=== PATIENT | male | born 1930 | race Caucasian/White ===

== ENCOUNTER 2017-01-18 12:01 | Outpatient (CLI) | payer MEDICARE, BC ==
--- OUTSIDE RECORDS SUMMARY | 2017-01-18 12:04 | XMS | Clinical Summary ---
:1930 Author Organization [facility] Address [address] [place] [address] Phone Care Team Providers Name Role Phone , Primary Care Provider Unavailable Allergies Not on File Current Medications Not on file Active Problems Not on file Social History Tobacco Use Types Packs/Day Years Used Date Never Assessed Sex Assigned at Date Recorded Not on file Last Filed Vital Signs Not on file Plan of Treatment Not on file Results Not on filefrom Last 3 Months
--- NOTE | 2017-01-18 14:43 | RAD ---
RADIOGRAPH CHEST 2 VIEWS: Date: 01-18-17 Time: 12:15 p.m. HISTORY: 86-year-old male with dyspnea. COMPARISON: 04-30-13, 01-07-16, and 08-27-16 FINDINGS: There is hyperinflation consistent with COPD. There is borderline or mild cardiomegaly, without pulm onary edema. On the frontal view, the focal approximately 2.5 x 2.5 cm mass-like opacity remains at the right lower lung zone, unchanged since 2013, and therefore, not consistent with a primary malign karyn. Again demonstrated is the blunting and thickening of the lateral and posterior costophrenic an gle bilaterally, with thickening of the pleural stripes extending to the mid-chest bilaterally, rohini cially posteriorly. Chronic interstitial densities are again noted in the lower lung zones, especial ly on the right. No acute consolidation. No new mediastinal widening or pneumothorax. No major inter barney change overall. IMPRESSION: 1. pseudomass in the right lower lung zone has not significantly changed since 2013. 2. Bilateral small pleural effusions with at least partial loculations, unchanged since 2013. 3. Emphysema. 4. Chronic pulmonary densities at the lung bases bilaterally. 5. No significant interval change overall since the prior studies. LEANDER POS: [facility]
== END 2017-01-18 12:02 | disposition home or self-care (01) ==
LOC: RAD 12:01
PROVIDERS: ATTEND Internal Medicine Critical Care Medicine
DX: R06.00 Dyspnea, unspecified (principal); J43.9 Emphysema, unspecified; R22.2 Localized swelling, mass and lump, trunk; J90 Pleural effusion, not elsewhere classified; R91.8 Other nonspecific abnormal finding of lung field
CPT/HCPCS: 71020

== ENCOUNTER 2017-06-13 18:16 | Inpatient (IN) | payer MEDICARE, BC ==
[2017-06-13 18:53] LABS: #Lymphocytes 0.6 thou/uL (1.20-3.40); #Monocytes 0.7 thou/uL (0.11-0.59); #Neutrophils 11.4 thou/uL (1.40-6.50); %Basophils 0.1 % (0.0-1.0); %Eosinophils 0.1 % (0.0-10.0); %Lymphocytes 4.5 % (21.0-51.0); %Monocytes 5.6 % (0.0-10.0); %Neutrophils 89.7 % (42.0-75.0); Hemoglobin 13.9 g/dL (14.0-18.0); Mean Corpuscular HGB CONC 33.4 g/dL (32.0-36.0); Mean Corpuscular Hemoglobin 33.3 pg (27.0-31.0); Mean Corpuscular Volume 99.8 fl (80.0-94.0); Mean Platelet Volume 7.5 fL (7.4-10.4); Platelet Count 153 thou/uL (130-400); Red Blood Cell (RBC) Count 4.16 mill/uL (4.70-6.10); White Blood Cell (WBC) Count 12.7 thou/uL (4.8-10.8)
[2017-06-13 19:09] LABS: CK (CPK) 60 U/L (30-200)
[2017-06-13 19:13] LABS: CKMB 1.4 ng/mL (0-6.6); Troponin I 0.099 ng/mL (< 0.028)
--- NOTE | 2017-06-13 19:21 | CT ---
HEAD CT WITHOUT CONTRAST 06/13/17 COMPARISON: 08/27/16 HISTORY: Altered mental status. TECHNIQUE: Serial axial CT imaging at 5 mm intervals from vertex through skull base without contrast. FINDINGS: Detailed assessment is somewhat limited secondary to head motion artifact. The imaged paranasal sinus es/mastoid air cells are well aerated. No displaced calvarial fracture is seen. No intracranial hemorrhage, midline shift, or mass effect noted. There is periventricular and deep wh ite matter hypodensity suggesting small vessel disease. IMPRESSION: Motion limited exam demonstrating evidence of small vessel disease. No evidence for intracranial hemo rrhage. POS: [facility]
[2017-06-13 19:51] LABS: Albumin 4.3 g/dL (3.4-4.8)
[2017-06-13 19:52] LABS: Chloride 94 mmol/L (98-107); Potassium 4.1 mmol/L (3.5-5.1); Sodium 131 mmol/L (136-145)
[2017-06-13 19:53] LABS: Calcium 9.3 mg/dL (7.8-10.44); Glucose 122 mg/dL (83-110)
[2017-06-13 19:54] LABS: Globulin 3.4 g/dL (2.4-3.5); Protein, Total 7.7 g/dL (5.8-8.1)
[2017-06-13 19:55] LABS: Anion Gap 18 mmol/L (10-20); Bilirubin, Total 7.6 mg/dL (0.2-1.2); Carbon Dioxide 23 mmol/L (23-31)
[2017-06-13 19:56] LABS: Alkaline Phosphatase 89 U/L (40-150)
[2017-06-13 19:57] LABS: Calc. Creatinine Clearance 0 mL/min (70-130); Estimated GFR-MDRD 52
[2017-06-13 19:58] LABS: BUN (Urea Nitrogen) 16 mg/dL (8.4-25.7)
[2017-06-13 19:59] LABS: ALT (SGPT) 8 U/L (8-55); AST (SGOT) 19 U/L (5-34)
--- NOTE | 2017-06-13 20:07 | RAD ---
PORTABLE UPRIGHT FRONTAL CHEST RADIOGRAPH 06/13/17 COMPARISON: 01/18/17 and 01/06/15. HISTORY: Fever and altered mental status. FINDINGS: Numerous prior examinations have demonstrated a focal area of opacity in the right lung base. This op acity is more conspicuous than on the prior examination and extends superior and medially into the ri ght perihilar region. There is no pneumothorax. There is lateral pleural thickening involving both le ng bases, left greater than right, stable. There is stable prominence of the cardiac silhouette. Ther e is atherosclerotic calcification of the aortic arch. There is no pneumothorax seen. IMPRESSION: Chronic persistent focal opacity noted in the right lung base with superimposed new right perihilar a nd infrahilar density. The findings suggest infectious pneumonitis or aspiration within the right brian g base. Asymmetric pulmonary edema is a possibility. Recommend short term followup imaging of the rai st following treatment. POS: [facility]
[2017-06-13] MEDS ORDERED: Acetaminophen 500 MG TAB ONE (20:19)
[2017-06-13] MEDS ORDERED: Azithromycin 500 MG VIAL ONE (20:19)
[2017-06-13 20:28] LABS: Bilirubin Small (Negative); Blood, Urine Moderate (Negative); Clarity CLOUDY (Clear); Glucose, Urine (Dipstick) Negative (Negative); Leukocyte Negative (Negative); Nitrite Negative (Negative); Protein, Urine (Dipstick) 100 mg/dL (Neg-Trace); Specific Gravity, Urine 1.021 (1.002-1.036); Urobilinogen 0.2 mg/dL (0.2-1.0); pH, Urine 5.5 (5.0-9.0)
[2017-06-13 20:32] LABS: Bacteria/HPF None Seen HPF (None Seen); Hyaline Casts/LPF 7-10 HYALINE CAST LPF (0-3 Hyaline); Pathc Cast-AUWi Flag 0.81 (0-2.49); Squamous Epithelial 0-3 HPF (0-3); WBC/HPF 0-3 HPF (0-3)
[2017-06-13 22:45] LABS: Lactic Acid 1.3 mmol/L (0.5-2.2)
[2017-06-14] MEDS ORDERED: HYDROcodone/Acetaminophen 5/325 mg Tablet PO PRN ×3 (00:17→01:17)
[2017-06-14] MEDS ORDERED: Ondansetron ODT 4 MG TAB SL PRN (00:17)
[2017-06-14] MEDS ORDERED: Ondansetron PF 4 MG/2 ML Vial IVP PRN (00:17)
[2017-06-14] MEDS ORDERED: Acetaminophen 325 MG TAB PO PRN ×2 (00:17→01:17)
[2017-06-14 00:21] VITALS: BMI 20.7
[2017-06-14 00:59] LABS: Troponin I 0.103 ng/mL (< 0.028)
[2017-06-14] MEDS ORDERED: Ondansetron ODT 4 MG TAB PO PRN (01:17)
[2017-06-14] MEDS ORDERED: Atorvastatin Calcium 20 MG TAB PO SCH ×2 (01:17→21:00)
--- NOTE | 2017-06-14 06:43 | HP ---
DATE OF ADMISSION: 06/13/2017 TIME OF SERVICE: 2145 hours PRIMARY CARE PHYSICIAN: Dr. Edilberto Douglas. CHIEF COMPLAINT: Altered mental status. HISTORY OF PRESENT ILLNESS: Mr. Koenig is an 86-year-old white gentleman with a history of GERD; KHALIDA DH; coronary arteries status post MO in the past; CHF, unknown type; atrial fibrillation, status post ablation; UTIs; hypertension; and skin cancer. The patient woke up 06/13/2017 according to his "in a fog" and was not really talking and seemed to really not respond much. He has never had any situation like this before. He has had no recent fevers or chills. No nausea and vomiting. No diarrhea or constipation, no coug h, no sputum production. No complaints of chest pain or shortness of breath. He says he just cannot really talk. He substitutes the wrong words or just cannot come up with the w ords at all. He has been able to walk around the house without any difficulty. He has not had any leaning or stra nge gait. He has been able to move all 4 of his extremities and they all feel normal to him. He denies any other current complaints. He came to the emergency department for evaluation. He was found to have a white count of 12.7, labs were fairly normal, he did have a chest x-ray that showed a chronic right basilar opacity, but a new right perihilar and infrahilar opacity. CT scan of the brain was unremarkable. We are subsequently called for admission for pneumonia and sepsis. PAST MEDICAL HISTORY: 1. GERD. 2. SIADH. 3. Coronary artery disease, status post MO. 4. CHF, unknown type. 5. Hypertension. 6. Skin cancer, stage II. 7. UTIs. 8. Atrial fibrillation, status post ablation. 9. Hypothyroidism. 10. BPH. PAST SURGICAL HISTORY: 1. PTCA with PCI and stent placement. 2. Atrial fibrillation ablation. Denies any pacemaker or AICD placement. 3. Left lung decortication remotely. 4. Tonsillectomy. HOME MEDICATIONS: 1. Coreg 12.5 mg p.o. b.i.d. 2. Lipitor 10 mg p.o. at bedtime. 3. KCl 8 mEq daily. 4. Prilosec 20 mg daily. 5. Levothyroxine 125 mcg daily. 6. Flomax 0.4 mg p.o. at bedtime. 7. Proscar 5 mg p.o. daily. 8. Glucosamine daily. 9. Symbicort 160/4.5 two puffs b.i.d. 10. Albuterol MDI as needed. 11. Nasonex 12. Aspirin 81 mg daily. 13. Loratadine 10 mg p.o. daily. ALLERGIES: AZITHROMYCIN, PENICILLIN, SULFA. FAMILY HISTORY: Negative for clotting or bleeding disorder. No immune dysfunction, no premature cor onary artery disease, and no massive strokes. SOCIAL HISTORY: Negative for habits x3. He is . His accompanies him. REVIEW OF SYSTEMS: A 10-point review of systems was performed, negative for all systems except as pe r HPI. PHYSICAL EXAMINATION: VITAL SIGNS: Temperature 101.3 on arrival, now down to 99.2; blood pressure 139/90, pulse is 97, res piratory rate 22, satting at 99% on 2 liters. GENERAL: He is awake. He is alert. He is a pleasant, well-developed, well-nourished, elderly white male, appears to be in no acute distress. HEENT: Normocephalic, atraumatic. His pupils are equal, round, react to light bilaterally, mucous m embranes are moist. No visible lesions. No thrush. No uvular deviation. NECK: Supple. He has no lymphadenopathy, no JVD, no thyromegaly. There are normal carotid upstroke s. I do not appreciate bruits. LUNGS: Clear to auscultation bilaterally without wheezes, rales, or rhonchi. He has some faint righ t inferior posterior crackles present, but there is no E to A changes and no dullness. CARDIOVASCULAR: He is slightly tachycardic and irregular. He has normal S1 and S2. I do not apprec iate murmurs. ABDOMEN: Soft, nontender, nondistended. He has no hepatosplenomegaly. No rebound, rigidity, or gua rding. He has normoactive bowel sounds present in all 4 quadrants. EXTREMITIES: With no cyanosis, no clubbing, no edema. SKIN: Warm, moist, and well perfused. He has no rashes or lesions. MUSCULOSKELETAL EXAM: Normal to inspection. He has no inflamed joints and no palpable effusions. NEUROLOGIC: Cranial nerves II-XII grossly intact. He has a Broca's aphasia. He moves all 4 of his extremities symmetrically with 5/5 strength. His sensation is intact. He has no focal motor deficit s otherwise. LABORATORY EVALUATION: Sodium 131, potassium 4.1, chloride 94, bicarbonate 23, BUN 16, creatinine 1. 32, calcium 9.3, and glucose 122. Liver functions are normal. Total bilirubin is elevated at 7.6. Looking back, he is always in the 3 -4 range. CBC showed a white count of 12.7 with a 90% granulocytosis, 5% lymphocytes, hemoglobin is 13.9, hemat ocrit of 41.5, platelet count 153,000. Chest x-ray as above. CT scan of the brain showed no acute i ntracranial abnormalities. ASSESSMENT AND PLAN: 1. Broca's aphasia, certainly concerning for a new stroke. We will get MRI/MRA of the head. We martin l place him on aspirin 325 mg daily, get a fasting lipid profile in the morning, and increase his Lip itor to 20 mg p.o. at bedtime. We will ask Neurology to evaluate. I have requested a PT, OT, and ST consult. He seems to be able to swallow fine. We will do a bedside swallow and not make him n.p.o. at this point. 2. Possible community-acquired pneumonia. He has a new right perihilar and infrahilar patchy opacit y. We will place him on levofloxacin tonight and watch. There are no signs of aspiration at this po int. 3. Gastroesophageal reflux disease, on Prilosec. 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 5. Coronary artery disease, on Coreg and Lipitor. 6. Hypothyroidism, on levothyroxine. 7. Hypertension. He is on Coreg and appears to be well controlled. We will continue that. 8. Atrial fibrillation, status post ablation. The patient is not on any antiarrhythmics. The patient was placed inpatient due to pneumonia and he does meet sepsis criteria. We will get neur ologist's input.
[2017-06-14] MEDS ORDERED: Vancomycin HCl 1 GM in Premix Bag 1 BAG IVPB SCH (08:00)
--- NOTE | 2017-06-14 08:12 | ULT ---
BILATERAL CAROTID DUPLEX ULTRASOUND: HISTORY: Aphasia. TECHNIQUE: Mcnulty scale ultrasound with color flow and spectral Doppler imaging of the deep venous systems of the extracranial carotid artery systems was performed bilaterally. FINDINGS: Plaque formation is noted on either side. The peak systolic velocity in the right ICA measures 53 cm/s with an end-diastolic velocity of 20 cm/ s and a systolic ratio of 0.89. The peak systolic velocity in the left ICA measures 61 cm/s with an end-diastolic velocity of 27 cm/s and a systolic ratio of 0.91. Flow in both vertebral arteries remains antegrade. IMPRESSION: No evidence of hemodynamically significant stenosis. POS: [facility]
[2017-06-14] MEDS: Famotidine 20 MG TAB PO SCH (08:45)
[2017-06-14] MEDS: Carvedilol 25 MG TAB PO SCH ×2 (08:45→20:29)
[2017-06-14] MEDS: Aspirin 325 mg Enteric Coated Tablet PO SCH (08:45)
[2017-06-14] MEDS: Enoxaparin Sodium 40 MG/0.4 ML SYRINGE SC SCH (08:46)
[2017-06-14 09:24] LABS: Troponin I 0.088 ng/mL (< 0.028)
[2017-06-14 12:42] LABS: Hemoglobin 12.4 g/dL (14.0-18.0); Mean Corpuscular HGB CONC 32.9 g/dL (32.0-36.0); Mean Corpuscular Hemoglobin 33.2 pg (27.0-31.0); Mean Platelet Volume 7.2 fL (7.4-10.4); Platelet Count 142 thou/uL (130-400); Red Blood Cell (RBC) Count 3.74 mill/uL (4.70-6.10); White Blood Cell (WBC) Count 9.4 thou/uL (4.8-10.8)
[2017-06-14 12:56] LABS: Band 7 % (5-11); Lymphocytes 11 % (21-51); MDiff Complete? YES; Monocytes 6 % (0-10); Neutrophil 76 % (42-75); RBC Morphology Normal
[2017-06-14 13:07] LABS: Anion Gap 10 mmol/L (10-20); BUN (Urea Nitrogen) 20 mg/dL (8.4-25.7); Calc. Creatinine Clearance 43 mL/min (70-130); Calcium 8.3 mg/dL (7.8-10.44); Carbon Dioxide 28 mmol/L (23-31); Chloride 95 mmol/L (98-107); Estimated GFR-MDRD 59; Glucose 105 mg/dL (83-110); Potassium 3.9 mmol/L (3.5-5.1); Sodium 129 mmol/L (136-145)
[2017-06-14] MEDS: Mometasone/Formoterol 120 PUFF INHALER INH SCH (14:19)
--- NOTE | 2017-06-14 15:31 | PDOC.PN ---
- Subjective Encounter Start Date: 06/14/17 Encounter Start Time: 13:00 Subjective: pt up in bed no complains - Objective Resuscitation Status: Resuscitation Status FULL:Full Resuscitation Vital Signs & Weight: Vital Signs (12 hours) Temp Pulse Pulse Pulse Resp BP BP 06/14/17 15:20 97.8 F 73 20 06/14/17 12:00 97.4 F L 88 06/14/17 10:29 75 77 110/75 103/68 06/14/17 08:45 97 95 135/89 171/94 H 06/14/17 08:00 97.9 F 99 20 06/14/17 04:00 97.4 F L 82 16 BP Pulse Ox 06/14/17 15:20 117/65 94 L 06/14/17 12:00 109/71 96 06/14/17 10:29 06/14/17 08:45 06/14/17 08:00 142/92 H 96 06/14/17 04:00 123/73 94 L Weight Weight 144 lb 9.6 oz I&O: 06/13/17 06/14/17 06/15/17 06:59 06:59 06:59 Intake Total 80 240 Balance 80 240 Result Diagrams: 06/14/17 12:33 06/14/17 12:33 Phys Exam - Physical Examination HEENT: PERRLA Neck: no nodes Respiratory: no wheezing (decreased breath sounds to left lower lung) Cardiovascular: RRR, no significant murmur Gastrointestinal: soft, non-tender Musculoskeletal: edema present Neurological: non-focal Dx/Plan (1) Acute metabolic encephalopathy Code(s): G93.41 - METABOLIC ENCEPHALOPATHY Status: Acute Plan: possible stroke vs pna. will start stroke work up. MRI/MRA/carotid dopplers. pt on asa/statin (2) Hyponatremia Code(s): E87.1 - HYPO-OSMOLALITY AND HYPONATREMIA Status: Acute Plan: will check serum osmolarity. fluid restriction (3) Pneumonia Code(s): J18.9 - PNEUMONIA, UNSPECIFIED ORGANISM Status: Acute Plan: pt on abx for now (4) Atrial fibrillation Code(s): I48.91 - UNSPECIFIED ATRIAL FIBRILLATION Status: Acute Plan: currently in sinus, pt s/p ablation. no on any AC. on asa. chadvas score is 3. (5) Elevated troponin Code(s): R74.8 - ABNORMAL LEVELS OF OTHER SERUM ENZYMES Status: Acute Plan: could be demand but pt's trop was normal in the past. - Plan * .
--- NOTE | 2017-06-14 15:45 | MRI ---
BRAIN MRI WITH IV CONTRAST 06/14/17 HISTORY: 86-year-old male with history of aphasia. Multiplanar and multisequence MRI examination of the brain is performed without IV contrast. There is bilateral atrophy and chronic white matter ischemic change. No focal mass or midline shift. No intra or extra-axial hemorrhage. IMPRESSION: Atrophy and marked chronic white matter ischemic change without mass or bleed. No acute infarct. No a cute hemorrhage. Expected flow voids are present. No mass or bleed. POS: [facility]
--- NOTE | 2017-06-14 16:10 | MRI ---
MRA [employer] [employer] [place] WITH 3D VOLUME RENDERING NONCONTRAST 06/14/17 CLINICAL HISTORY: Aphasia. FINDINGS: Tortuosity of the distal vertebral arteries is present with signal heterogeneity which limits assess ment. The proximal basilar arteries also limited in assessment. The mid to distal and basilar artery is patent. The imaged proximal bilateral posterior cerebral arteries are patent. The mid to distal PC A bilaterally are not well assessed. This could be due to artifact and diminutive volume. The possibi lity of atherosclerotic not excluded. The imaged distal ICA bilaterally, reveal no high grade stenosi s or occlusion. Bilateral MCA are patent. Small caliber bilateral PILI reveal no obvious high grade st enosis or occlusion. The anterior communicating artery is unremarkable. IMPRESSION: Multifocal areas of signal heterogeneity of the [place] as above. Component is due to flow r elated artifact/motion artifact, although the possibility of underlying vascular disease is not exclu ded, as discussed above. There is no obvious high grade stenosis of the imaged distal ICA or MCA. POS: [facility]
--- NOTE | 2017-06-14 19:49 | CON ---
DATE OF ADMISSION: 06/13/2017 DATE OF CONSULTATION: 06/14/2017 INDICATION FOR CONSULTATION: An 86-year-old patient with a history of atrial fibrillation in the [facility] t, who has undergone electrical cardioversions as well as ablation of atrial fibrillation and a Laria t device, who presented to the hospital at this time with mental status changes. He appears to be ba ck at his baseline. At least, according to his , he is back to his baseline, but yesterday he wo ke up confused, not making sense when he was speaking and she had him brought to the emergency room. At this time, he is back in his normal mentation. He denies any chest pain or shortness of breath a nd denied any palpitations. His cardiac enzymes were slightly abnormal. However, he did have some r apid heart rate, but troponin is 0.099 and then 0.09, which is not indicative of myocardial infarctio n and not has actually decreased down to the 0.88, the highest was 0.1. His MBs are negative and als o his BNP was slightly elevated or it was moderately elevated at 969. He denied any cardiac complain ts. He denied palpitations, chest pain, or shortness of breath. PAST MEDICAL HISTORY: Significant for some coronary artery disease. He has had angioplasty and sten t placement. He had myocardial infarction, history of congestive heart failure, hypertension. He woods s SIADH, as well as gastroesophageal reflux disease, occasional urinary tract infections. He has had skin cancers removal, I believe in the form of melanoma. He has had an ablation of the atrial fibri llation, has also had a Lariat procedure performed. He has hypothyroidism, benign prostatic hypertro phy. He has had a left lung decortication, which he cannot remember etiology of why this was done. He has had a tonsillectomy. MEDICATIONS: Prior to admission included Coreg 12.5 mg b.i.d., Lipitor 10 mg a day, potassium 8 mEq q. day, Prilosec 20 mg daily, levothyroxine 125 mcg q. day, Flomax 0.4 mg q.p.m., Proscar 5 mg q. day , glucosamine q. day, Symbicort 160/4.5 two puffs b.i.d., Nasonex, albuterol, aspirin 81 mg a day, lo ratadine 10 mg a day. ALLERGIES: He is allergic to PENICILLIN, SULFA, AND ERYTHROMYCIN. FAMILY HISTORY: Noncontributory at this time. He has no early family heart disease. SOCIAL HISTORY: He is . He has children, who are alive and well. He has no history of alcoh ol or tobacco abuse. REVIEW OF SYSTEMS: Twelve point review of systems was unremarkable. He denied any complaints from H EENT standpoint, pulmonary standpoint, GI, , musculoskeletal and has had no neurological complaints until he has had confusion yesterday morning. PHYSICAL EXAMINATION: GENERAL: Reveals a well-developed, well-nourished gentleman who is in no acute distress. He is aler t and oriented at this time. VITAL SIGNS: Blood pressure 117/65, heart rate is 73 and irregular. He has a respiratory rate of 20 and he is afebrile. HEENT: Shows head to be normocephalic, atraumatic. Carotid pulses are present without any bruits. There is no JVD. Thyroid is not enlarged. Oral mucosa was pink and moist. CHEST: Clear to auscultation. I did not hear any rales, rhonchi, or wheezing. CARDIOVASCULAR: Exam reveals a regular rhythm. There were no significant murmurs. He did have a ve ry soft systolic murmur at the apex. ABDOMEN: Soft and nontender. Positive bowel sounds are present. EXTREMITIES: Showed no clubbing, cyanosis, or edema. Pedal pulses are present. NEUROLOGIC: The patient appears to be back to his baseline and appears to be intact. SKIN: Warm and dry. IMAGING: His EKG shows atrial fibrillation. LABORATORY DATA: Shows a troponin I as noted above. His sodium is low. He has a sodium level on ad mission 131, decreased down to 129, potassium is 3.9, BUN is 20 with a creatinine of 1.18, hemoglobin is 12.4. No indication of any significant urinary tract infection; however, he did have moderate am ount of blood noted in the urine. IMPRESSION: 1. Elderly gentleman with mental status changes. MRI has been performed and an MRA as well as CT sc an results of these are still pending. A CT scan did not show any acute problems. No bleeding. 2. History of coronary artery disease, which remains stable. He is status post angioplasty and sten t placement. 3. What appears to be chronic atrial fibrillation. We will continue his present medications at this time and mainly he will be rate controlled. He is low risk of having any acute embolic events after undergoing a Lariat procedure since there is occlusion of left atrial appendage. 4. Hypertension, which is under good control at this time and actually syndrome of inappropriate ant idiuretic hormone this will be dealt with by the primary care service or the investment accountant. Furthe r care of the patient will be by Dr. Blackburn for his visits with the patient tomorrow. At this angely e, overall cardiac status appears to be stable. There is no indication we need to proceed. The card iac enzymes are slightly elevated, but are indeterminant, in which most likely related to the atrial fibrillation and rapid ventricular response at times. It appears that he is in chronic atrial fibril lation at all times, and he most likely has some type of bleeding issues in the past that is why he u nderwent Lariat procedure to begin with.
[2017-06-14] MEDS ORDERED: Levothyroxine Sodium 125 MCG TAB PO SCH (21:00)
[2017-06-14] MEDS ORDERED: Tamsulosin HCl 0.4 MG CAP PO SCH (21:00)
[2017-06-14] MEDS ORDERED: Finasteride 5 MG TAB PO SCH (21:00)
--- NOTE | 2017-06-14 21:50 | CON ---
DATE OF CONSULTATION: 06/14/2017 REFERRING PROVIDER: Bg Cabrera MD REASON FOR CONSULTATION: Aphasia. HISTORY OF PRESENT ILLNESS: Mr. Koenig is a pleasant 86-year-old male who has been consulted for evaluation of aphasia. The patient's was at bedside who provides part of the history. The reports that patient was in his normal state of health day before yesterday. He woke up on yesterday morning and was having difficulty with expressing himself. His speech was coming up as gibberish. He immediately called 911 and the patient was brought to the [facility]. His symptoms got better after a few hours being in to the ER. He currently denies any headache, chest pain, palpitation, vision difficulties, diplopia, ptosis, numbness, tingling, weakness. He reports that his speech is back to normal. He denies any other associated neurological symptoms. PAST MEDICAL HISTORY: Significant for hypertension, GERD, SIADH, coronary artery disease, congestive heart failure, skin cancer stage II, UTIs; atrial fibrillation, status post ablation; hypothyroidism and BPH. PAST SURGICAL HISTORY: Significant for coronary stent placement, atrial ablation for atrial fibrillation, left lung decortication and tonsillectomy. FAMILY HISTORY: Noncontributory. SOCIAL HISTORY: He denies smoking, alcohol use, or illicit drug use. He is . CURRENT MEDICATIONS: Please review MAR. ALLERGIES: Include AZITHROMYCIN, PENICILLIN and SULFA DRUGS. REVIEW OF SYSTEMS: As mentioned in the HPI, otherwise, negative. PHYSICAL EXAMINATION: VITAL SIGNS: Blood pressure 117/65, pulse of 73, temperature of 97.8, respirations of 20, O2 sats of 94% on room air. GENERAL: Well-developed, well-nourished male in no apparent distress. RESPIRATORY: Clear to auscultation bilaterally. CARDIOVASCULAR: Regular rate and rhythm. NEUROLOGIC: Mental status: The patient is awake, alert, oriented x3. Speech and language: Fluent speech. Cranial nerves: Pupils are 3 mm and reactive. Visual kellogg are intact. Extraocular muscles are intact. No nystagmus is noted. Face is symmetric. Tongue and uvula are midline. Motor exam showed normal tone and bulk with 5/5 strength in both upper and lower extremities. Babinski: Plantar responses flexion bilaterally. Coordination intact to finger -nose-finger and finger tapping bilaterally. LABORATORY DATA: Reviewed, which included CBC, CMP, troponin, CPK, BNP which is significant for hemoglobin 12.4, hematocrit 37.9, sodium 129, troponin of 0.088. Urinalysis showing 0-3 WBC, negative nitrites and negative leukocyte esterase. IMAGING STUDIES: MRI brain without contrast was reviewed, which showed no acute intracranial abnormality. MR angiogram of the neck was head was reviewed , which showed no hemodynamically significant extracranial stenosis. IMPRESSION: 1. Transient ischemic attack. 2. Hyponatremia. ASSESSMENT AND PLAN: Mr. Koenig is a pleasant 86-year-old male who presented with episode of expressive aphasia and confusion. This could be secondary to transient ischemic attack caused from low sodium. At this time, I will recommend continue on aspirin 81 mg daily for secondary stroke prevention. There is no further neurological workup needed from my standpoint. The patient is okay to be discharged to home. Thank you for the consultation. RENATA
[2017-06-15] MEDS: Mometasone/Formoterol 120 PUFF INHALER INH SCH (08:57)
[2017-06-15] MEDS: Enoxaparin Sodium 40 MG/0.4 ML SYRINGE SC SCH (09:06)
[2017-06-15] MEDS: Carvedilol 25 MG TAB PO SCH (09:07)
[2017-06-15] MEDS: Aspirin 325 mg Enteric Coated Tablet PO SCH (09:07)
[2017-06-15] MEDS: Famotidine 20 MG TAB PO SCH (09:07)
[2017-06-15 09:11] LABS: Anion Gap 11 mmol/L (10-20); BUN (Urea Nitrogen) 18 mg/dL (8.4-25.7); Calc. Creatinine Clearance 52 mL/min (70-130); Calcium 8.4 mg/dL (7.8-10.44); Carbon Dioxide 26 mmol/L (23-31); Chloride 96 mmol/L (98-107); Estimated GFR-MDRD 69; Glucose 85 mg/dL (83-110); Potassium 3.7 mmol/L (3.5-5.1); Sodium 129 mmol/L (136-145)
--- NOTE | 2017-06-15 11:01 | PQF ---
DATE: 06-15-17 ATTN: DR. BERNABE STRICKLAND Please exercise your independent, professional judgment in responding to the clarification form. Clinical indicators are provided on the bottom of this form for your review Please check appropriate box(s) to clarify if the following diagnosis has been ruled in our ruled out: SEPSIS (CDI/Coding list diagnosis here) [ ] Ruled in diagnosis [ ] Continue to treat [ ] Resolved [ ] Ruled out diagnosis [ ] Other diagnosis [x ] Unable to determine In addition, please specify: Present on Admission (POA): [x ] Yes [ ] No [ ] Unable to determine For continuity of documentation, please document condition throughout progress notes and discharge summary. Thank You. CLINICAL INDICATORS - SIGNS / SYMPTOMS / LABS H&P: WE WERE SUBSEQUENTLY CALLED FOR ADMISSION FOR PNEUMONIA AND SEPSIS. THE PATIENT WAS PLACED INPATIENT DUE TO PNEUMONIA AND HE DOES MEET SEPSIS CRITERIA. WBC: 06-13-17: 12.7 LACTIC ACID: 06-13-17: 2.5 RISK FACTORS: H&P: IN WITH PNEUMONIA, ENCEPHALOPATHY, HX OF GERD, A FIB, UTI, SKIN CA, CAD WITH VT TREATMENTS: (MAR) LEVAQUIN, VANCOMYCIN (This form is maintained as a part of the permanent medical record) 2014 [employer]. All Rights Reserved [email or web address] [email or web address] Office: [phone] [facility] HOSPITALJeronimo
--- NOTE | 2017-06-15 11:08 | PQF ---
DATE: 06-15-17 ATTN: DR. BERNABE STRICKLAND Please exercise your independent, professional judgment in responding to the clarification form. Clinical indicators are provided on the bottom of this form for your review Please check appropriate box(s): [ x] Demand Ischemia [ ] TX ( type 2) [ ] Other [ ] Unable to determine In addition, please specify: Present on Admission (POA): [ x] Yes [ ] No [ ] Unable to determine For continuity of documentation, please document condition throughout progress notes and discharge summary. Thank You. CLINICAL INDICATORS - SIGNS / SYMPTOMS/ LABS are present in the medical record: Lab Results: TROPONIN: 06-13-17: 0.099 06-13-17: 0.090 06-14-17: 0.103 06-14-17: 0.[address] LOPEZ 06-14-17: ACUTE ELEVATED TROPONIN, COULD BE DEMAND BUT PT'S TROP WAS NORMAL IN THE PAST RISK FACTORS: H&P: CAD S/P TX TREATMENT: SERIES OF LABS (This form is maintained as a part of the permanent medical record) 2014 [employer]. All Rights Reserved SANTIAGO [email or web address] Office: [phone] [facility] CENTERJeronimo
[2017-06-15 11:37] VITALS: BP 134/85; TEMP 97.4
--- NOTE | 2017-06-15 15:23 | DIS ---
DATE OF ADMISSION: 06/14/2017 DATE OF DISCHARGE: 06/15/2017 ADMITTING DIAGNOSES: 1. Acute encephalopathy. DISCHARGE DIAGNOSES: 1.Acute metabolic encephalopathy. SECONDARY DIAGNOSES: 1. Acute hyponatremia. 2. Hypertension. 3. Hypothyroidism. 4. Atrial fibrillation, status post ablation. 5. Gastroesophageal reflux disease. 6. Coronary artery disease. 7. Acute community-acquired pneumonia. 8. Diabetic. 9. Demand ischemia HISTORY OF PRESENT ILLNESS/HOSPITAL COURSE: In brief, this is an 86-year-old white male with a known history of GERD and SIADH, history of coronary artery disease who presented to the hospital with altered mental status. He woke up, according to his , was in a fog and was not understanding where he was. He denied having any recent fevers or any nausea or vomiting, no diarrhea, no constipation. The patient presented to the ER and had a CT of the head which did not show any evidence of a stroke, so MRI of the brain was ordered and was admitted for TIA. MRI did not show any evidence of an acute stroke, but chest x -ray did show an evidence of a right basilar opacity suggestive of pneumonia. The patient was started on Levofloxacin 750 mg IV daily. The patient showed good improvement with this and his sodium was chronically low and was 129 and did not respond to IV fluids. The patient's mental status did turn around, and he was doing much better and the patient was also seen by Dr. Smith from Cardiology as the patient was having elevated troponins, which was most likely demand ischemia according to her secondary to atrial fibrillation. The patient was also seen by Dr. Jaison Schmidt from Neurology for further stroke as the patient did not had actual stroke, but had possibly transient ischemic attack and/or possibly could be related to encephalopathy secondary to hyponatremia, so the patient was reassured and the patient was evaluated by physical therapy. He did fine and was advised to go home. The patient responded very well to the antibiotics and his IV antibiotics were changed to p.o. levofloxacin. The patient was stable and was discharged home in stable condition. PHYSICAL EXAMINATION: On date of discharge, VITAL SIGNS: Blood pressures are 134/85. Heart rate is 82, respiration is 18, saturating 100% on room air. GENERAL: The patient is a moderately built and moderately nourished, does not appear to be in acute distress. CARDIOVASCULAR: S1, S2 normal. No murmurs, rubs or gallops. LUNGS: Bilateral air entry was equal. ABDOMEN: Soft, nontender, no guarding, no rebound tenderness. Bowel sounds normal. MUSCULOSKELETAL: No calf tenderness or pedal edema. No joint tenderness, no joint swelling. DISCHARGE MEDICATIONS: 1. Albuterol inhalation. 2. Aspirin 81 mg daily. 3. Atorvastatin 10 mg p.o. at bedtime. 4. Lasix 40 mg p.o. daily. 5. Loratadine 10 mg daily. 6. Omeprazole 20 mg daily. 7. Potassium 8 mEq p.o. daily. 8. Coreg 12.5 mg p.o. b.i.d. 9. Finasteride. 10. Levothyroxine. 11. Tamsulosin. 12. Levofloxacin 750 mg p.o. daily for 4 more days. DISCHARGE INSTRUCTIONS: Continue activity as tolerated. Advised to follow up with primary care physician in 1-2 weeks. Advised to follow up with Cardiology in 2-3 weeks if the patient has any chest pains. Continue with cardiac diet. Continue activity as tolerated. I spent 30 minutes of this patient. MTDD
--- NOTE | 2017-06-17 19:49 | EKG ---
Test Reason : AMS Blood Pressure : / mmHG Vent. Rate : 101 BPM Atrial Rate : 101 BPM P-R Int : 000 ms QRS Dur : 082 ms QT Int : 368 ms P-R-T Axes : 000 -31 070 degrees QTc Int : 477 ms Sinus rhythm with 1st degree A-V block Left axis deviation Inferior infarct , age undetermined Abnormal ECG Confirmed by FLORIAN RUBIO, BUSHRA Polk ([id number]), book editor NONA TOBIAS ([id number]) on 06/17/2017 7:49:08 PM Referred By: Confirmed By:BUSHRA DU MD
== END 2017-06-15 15:33 | disposition home or self-care (01) | DRG 193 ==
LOC: ERS 18:16 → 2SE 20:15
PROVIDERS: ADMIT Family Medicine; ATTEND Family Medicine
DX: J18.9 Pneumonia, unspecified organism (principal); G93.41 Metabolic encephalopathy; E22.2 Syndrome of inappropriate secretion of antidiuretic hormone; I48.91 Unspecified atrial fibrillation; I24.8 Other forms of acute ischemic heart disease; I11.0 Hypertensive heart disease with heart failure; I50.9 Heart failure, unspecified; G45.9 Transient cerebral ischemic attack, unspecified; R47.01 Aphasia; K21.9 Gastro-esophageal reflux disease without esophagitis; I25.10 Atherosclerotic heart disease of native coronary artery without angina pectoris; I25.2 Old myocardial infarction; Z85.828 Personal history of other malignant neoplasm of skin; E03.9 Hypothyroidism, unspecified; N40.0 Benign prostatic hyperplasia without lower urinary tract symptoms
CPT/HCPCS: 36415; 51701; 70450; 70544; 70551; 71045; 80048; 80053; 81003; 81015; 82553; 83605; 83880; 83930; 84443; 84484; 85007; 85025; 85027; 87040; 87804; 93005; 93880; 94760; 96365; 96367; G8978-GP-CJ; G8979-GP-CJ; G8980-GP-CJ; G8987-GO-CI; G8988-GO-CI; G8989-GO-CI; G9162-GN-CK; G9163-GN-CI; J0456; J1650; J1956; J3370

== ENCOUNTER 2017-07-18 12:29 | Outpatient (CLI) | payer MEDICARE, BC ==
--- NOTE | 2017-07-18 14:48 | RAD ---
FRONTAL AND LATERAL IMAGING OF THE CHEST: DATE: 07/18/17. COMPARISON: 06/13/17 and 01/18/17. HISTORY: Dyspnea. FINDINGS: There is stable enlargement of the cardiac silhouette. There is stable interstitial prominence and p ulmonary hyperinflation. Chronic bilateral lateral pleural thickening noted involving mid left lung zone and bilateral lung bases. Lungs are hyperinflated consistent with air trapping. There is a stable rounded mass density in the right lung base, similar when compared to multiple prio r examinations dating back to 05/16/12 suggesting pseudo mass on the basis of trapped pleural fluid wi thin the fissure. IMPRESSION: Chronic stable findings as described above. POS: [facility]
== END 2017-07-18 12:30 | disposition home or self-care (01) ==
LOC: RAD 12:29
PROVIDERS: ATTEND Internal Medicine Critical Care Medicine
DX: R06.00 Dyspnea, unspecified (principal); R91.8 Other nonspecific abnormal finding of lung field
CPT/HCPCS: 71046

== ENCOUNTER 2017-07-26 13:34 | Outpatient (CLI) | payer MEDICARE, BC ==
--- NOTE | 2017-07-26 16:00 | RAD ---
TWO VIEWS CHEST: Date: 07-26-17 Provided Clinical History: Dyspnea. FINDINGS: Comparison is made with 07-18-17. The cardiac silhouette appears enlarged. Mass at the right lung base and bilateral pleural effusions appear similar to the prior study. No evidence for pneumothorax. Emphysematous changes at the lung ap ices are suggested. IMPRESSION: Stable radiographic appearance of the chest. POS: [facility]
== END 2017-07-26 13:35 | disposition home or self-care (01) ==
LOC: RAD 13:34
PROVIDERS: ATTEND Internal Medicine Critical Care Medicine
DX: R06.00 Dyspnea, unspecified (principal)
CPT/HCPCS: 71046

== ENCOUNTER 2018-10-23 01:42 | Emergency (ER) | payer MEDICARE, BC ==
[2018-10-23] MEDS ORDERED: Nitroglycerin 0.4 MG TAB 1 EACH ONE (03:46)
[2018-10-23] MEDS ORDERED: Aspirin 325 MG TAB ONE (03:46)
[2018-10-23 05:39] LABS: #Eosinphils 0.1 thou/uL (0.0-0.7); #Lymphocytes 0.5 thou/uL (1.20-3.40); #Monocytes 0.4 thou/uL (0.11-0.59); #Neutrophils 2.7 thou/uL (1.40-6.50); %Eosinophils 1.6 % (0.0-10.0); %Monocytes 11.4 % (0.0-10.0); Mean Corpuscular HGB CONC 34.4 g/dL (32.0-36.0); Mean Corpuscular Hemoglobin 34.2 pg (27.0-31.0); Mean Corpuscular Volume 99.5 fL (78.0-98.0); Mean Platelet Volume 6.3 fL (7.4-10.4); Platelet Count 141 thou/uL (130-400); RBC Distribution Width 13.1 % (11.5-14.5); Red Blood Cell (RBC) Count 3.21 mill/uL (4.70-6.10); White Blood Cell (WBC) Count 3.6 thou/uL (4.8-10.8)
[2018-10-23 06:00] LABS: ALT (SGPT) 8 U/L (8-55); AST (SGOT) 18 U/L (5-34); Albumin 3.8 g/dL (3.4-4.8); Alkaline Phosphatase 41 U/L (40-150); Anion Gap 14 mmol/L (10-20); BUN (Urea Nitrogen) 11 mg/dL (8.4-25.7); Bilirubin, Total 1.6 mg/dL (0.2-1.2); Calc. Creatinine Clearance 0 mL/min (70-130); Carbon Dioxide 26 mmol/L (23-31); Chloride 91 mmol/L (98-107); Estimated GFR-MDRD 88; Globulin 2.3 g/dL (2.4-3.5); Glucose 84 mg/dL (83-110); Potassium 3.8 mmol/L (3.5-5.1); Protein, Total 6.1 g/dL (5.8-8.1); Sodium 127 mmol/L (136-145)
[2018-10-23 07:37] LABS: Troponin I Less than 0.010 ng/mL (< 0.028)
--- NOTE | 2018-10-23 08:03 | RAD ---
RADIOGRAPH CHEST 1 VIEW: DATE: 10/23/2018 TIME: 3:51 AM HISTORY: 88-year-old male with dyspnea COMPARISON: 07/26/2017 FINDINGS: Cardiomegaly. Pulmonary venous engorgement. Bilateral pleural effusions. Interstitial densities at lo wer lung zones. Masslike density at right lower lung zone. No pneumothorax. The findings are very similar to those of previous year. This raises the possibility that the apparent pleural effusions co uld be chronic pleural thickening. IMPRESSION: 1. Congestive heart failure. 2. Multiple findings above appear very similar to last year.
== END 2018-10-23 07:50 | disposition home or self-care (01) ==
LOC: ERS 01:42
DX: R07.9 Chest pain, unspecified (principal)
CPT/HCPCS: 36415; 71045; 80053; 84484; 85025

== ENCOUNTER 2019-01-22 14:28 | Emergency (ER) | payer MEDICARE, BC ==
[2019-01-22 15:02] LABS: #Eosinphils 0.1 thou/uL (0.0-0.7); #Lymphocytes 1.4 thou/uL (1.20-3.40); #Monocytes 0.6 thou/uL (0.11-0.59); #Neutrophils 4.3 thou/uL (1.40-6.50); %Basophils 0.4 % (0.0-1.0); %Lymphocytes 20.8 % (21.0-51.0); %Monocytes 9.8 % (0.0-10.0); Mean Corpuscular HGB CONC 34.7 g/dL (32.0-36.0); Mean Platelet Volume 6.4 fL (7.4-10.4); Platelet Count 228 thou/uL (130-400); White Blood Cell (WBC) Count 6.5 thou/uL (4.8-10.8)
--- NOTE | 2019-01-22 15:18 | CT ---
CT CERVICAL SPINE WITHOUT CONTRAST: Date: 01/22/19 COMPARISON: None. HISTORY: Fell with head trauma and neck pain. TECHNIQUE: Multiple contiguous axial images were obtained in a CT of the cervical spine without contrast. Sagitt al and coronal reformats were performed. FINDINGS: Diffuse osteopenia is seen. Moderate degenerative changes are seen throughout the cervical spine. The vertebral bodies demonstrate normal height and alignment without acute fracture or subluxation. No p revertebral soft tissue swelling is seen. The posterior facets are well aligned. Normal alignment of the skull base with the cervical spine is seen. IMPRESSION: Degenerative changes of the cervical spine without acute osseous abnormality. POS: [facility]
--- NOTE | 2019-01-22 15:19 | CT ---
CT HEAD WITHOUT CONTRAST: Date: 01/22/19 INDICATION: Fall with injury to head. COMPARISON: 06/13/17. FINDINGS: Moderate chronic ischemic white matter changes are again noted. Ventricles have normal size and posit ion. No evidence of hemorrhage. No evidence of acute infarct. Sinuses and mastoids are well aerated. IMPRESSION: No acute abnormality. POS: [facility]
[2019-01-22 15:23] LABS: ALT (SGPT) 9 U/L (8-55); AST (SGOT) 22 U/L (5-34); Alkaline Phosphatase 62 U/L (40-110); Anion Gap 12 mmol/L (10-20); BUN (Urea Nitrogen) 11 mg/dL (8.4-25.7); Bilirubin, Total 2.4 mg/dL (0.2-1.2); Calc. Creatinine Clearance 0 mL/min (70-130); Calcium 8.7 mg/dL (7.8-10.44); Carbon Dioxide 26 mmol/L (23-31); Chloride 92 mmol/L (98-107); Estimated GFR-MDRD 73; Globulin 2.8 g/dL (2.4-3.5); Glucose 102 mg/dL (83-110); Potassium 3.9 mmol/L (3.5-5.1); Protein, Total 6.8 g/dL (5.8-8.1); Sodium 126 mmol/L (136-145)
[2019-01-22 15:46] LABS: CKMB 1.3 ng/mL (0-6.6)
--- NOTE | 2019-01-22 15:48 | RAD ---
EXAM: XR Hip Rt 2-3 View PROVIDED CLINICAL HISTORY: Pain FINDINGS: There is no evidence for fracture or other acute osseous abnormality. Alignment appears anatomic. Sarah nt spaces appear preserved. IMPRESSION: No evidence for an acute osseous abnormality. If there is persistent clinical concern, conservative m anagement and follow-up imaging advised.
--- NOTE | 2019-01-22 15:51 | RAD ---
EXAM: XR Femur Rt 2 View STANDARD PROVIDED CLINICAL HISTORY: Pain FINDINGS: There is no evidence for fracture or other acute osseous abnormality. Alignment appears anatomic. Sarah nt spaces appear preserved. Vascular calcifications are seen. Knee joint capsular distention is noted. IMPRESSION: No evidence for an acute osseous abnormality. If there is persistent clinical concern, conservative m anagement and follow-up imaging advised.
--- NOTE | 2019-01-22 15:57 | RAD ---
RIGHT KNEE FOUR VIEWS: 01/22/19 INDICATION: History of fall with right knee pain. FINDINGS: There is prominent vascular calcifications within the soft tissues. There is diffuse osteopenia. Ther e is an obliquely oriented fracture involving the anterolateral aspect of the proximal tibial diaphys is that extends into the metaphyseal region and likely into the intra-articular joint space of the ti alessandro, near the intercondylar notch and lateral tibial spine. There is a lipohemarthrosis within the ri ght knee. No additional fracture is evident. IMPRESSION: Intra-articular nondisplaced fracture involving the anterolateral aspect of the proximal tibia associ ated with right knee lipohemarthrosis. POS: [facility]
[2019-01-22] MEDS ORDERED: Morphine 4 MG/ML VIAL ONE ×2 (15:59→17:10)
[2019-01-22] MEDS ORDERED: Ondansetron PF 4 MG/2 ML Vial ONE (16:00)
[2019-01-22] MEDS ORDERED: Adacel (T-DAP) 0.5 ML SYRINGE ONE (17:10)
--- NOTE | 2019-01-26 14:51 | EKG ---
Test Reason : Blood Pressure : / mmHG Vent. Rate : 077 BPM Atrial Rate : 080 BPM P-R Int : 000 ms QRS Dur : 090 ms QT Int : 416 ms P-R-T Axes : 000 -43 052 degrees QTc Int : 470 ms Sinus rhythm Left axis deviation Inferior infarct , age undetermined Abnormal ECG Confirmed by ALEX GONZALEZ DO ([id number]), graphics editor NONA TOBIAS ([id number]) on 01/26/2019 2:51:10 PM Referred By: Confirmed By:ALEX GONZALEZ DO
== END 2019-01-22 22:10 ==
LOC: ERS 14:28
DX: S82.101A Unspecified fracture of upper end of right tibia, initial encounter for closed fracture (principal); S00.83XA Contusion of other part of head, initial encounter; E87.1 Hypo-osmolality and hyponatremia; R79.89 Other specified abnormal findings of blood chemistry; E78.00 Pure hypercholesterolemia, unspecified; I11.0 Hypertensive heart disease with heart failure; I50.9 Heart failure, unspecified; K21.9 Gastro-esophageal reflux disease without esophagitis; E03.9 Hypothyroidism, unspecified; N40.0 Benign prostatic hyperplasia without lower urinary tract symptoms; Z79.899 Other long term (current) drug therapy; Z79.51 Long term (current) use of inhaled steroids; Z79.82 Long term (current) use of aspirin; W18.30XA Fall on same level, unspecified, initial encounter
CPT/HCPCS: 29505; 36415; 70450; 72125; 80053; 82553; 84484; 85025; 90471; 90715; 93005; 96374; 96375; 96376; J2270; J2405

== ENCOUNTER 2019-03-16 07:37 | Inpatient (IN) | payer MEDICARE, BC ==
[2019-03-16] MEDS ORDERED: Succinylcholine Chloride 20 MG/ML 10 ml SYRINGE FS ONE (07:39)
[2019-03-16] MEDS ORDERED: Lorazepam 2 MG/ML VIAL ONE ×2 (07:39→07:41)
[2019-03-16] MEDS ORDERED: Propofol 1,000 MG/100 ML VIAL IV ONE ×2 (07:44→08:09)
[2019-03-16 08:01] LABS: #Eosinphils 0.1 thou/uL (0.0-0.7); #Lymphocytes 3.6 thou/uL (1.20-3.40); #Monocytes 1.1 thou/uL (0.11-0.59); #Neutrophils 10.6 thou/uL (1.40-6.50); %Basophils 0.2 % (0.0-1.0); %Eosinophils 0.7 % (0.0-10.0); %Lymphocytes 23.2 % (21.0-51.0); %Monocytes 6.9 % (0.0-10.0); %Neutrophils 69.1 % (42.0-75.0); Hemoglobin 12.6 g/dL (14.0-18.0); Mean Corpuscular Hemoglobin 33.3 pg (27.0-31.0); Mean Platelet Volume 6.9 fL (7.4-10.4); Platelet Count 309 thou/uL (130-400); RBC Distribution Width 12.9 % (11.5-14.5); Red Blood Cell (RBC) Count 3.79 mill/uL (4.70-6.10); White Blood Cell (WBC) Count 15.4 thou/uL (4.8-10.8)
--- NOTE | 2019-03-16 08:05 | CT ---
Head CT without contrast 03/16/2019: COMPARISON: 01/22/2019 HISTORY: Altered mental status, seizures TECHNIQUE: Axial CT imaging at 5 mm intervals from vertex through skull base without contrast FINDINGS: The visualized paranasal sinuses/mastoid air cells are well-aerated. No displaced calvarial fracture. No intracranial hemorrhage, midline shift, or mass effect. Periventricular, deep, and subcortical white matter hypodensity noted, evidence of small vessel disease. Diffuse cerebral volume loss. IMPRESSION: Chronic findings as detailed above. No acute findings. Results called to Dr. Higginbotham at 8:00 AM 03/16/2019
[2019-03-16 08:15] LABS: INR-International Normal Ratio 1.1; PTT 28.1 SEC (22.9-36.1); Prothrombin Time 13.9 SEC (12.0-14.7)
[2019-03-16 08:21] LABS: ALT (SGPT) 13 U/L (8-55); AST (SGOT) 25 U/L (5-34); Albumin 4.2 g/dL (3.4-4.8); Alkaline Phosphatase 81 U/L (40-110); Anion Gap 22 mmol/L (10-20); BUN (Urea Nitrogen) 9 mg/dL (8.4-25.7); Bilirubin, Total 2.4 mg/dL (0.2-1.2); Calc. Creatinine Clearance 0 mL/min (70-130); Calcium 9.1 mg/dL (7.8-10.44); Carbon Dioxide 17 mmol/L (23-31); Chloride 98 mmol/L (98-107); Estimated GFR-MDRD 67; Glucose 221 mg/dL (83-110); Protein, Total 7.2 g/dL (5.8-8.1); Sodium 132 mmol/L (136-145)
--- NOTE | 2019-03-16 08:25 | RAD ---
EXAM: XR Chest 1 View Portable PROVIDED CLINICAL HISTORY: Stroke alert COMPARISON: 02/10/2019 FINDINGS: Cardiac silhouette remains enlarged. Right basilar pleural-parenchymal opacity and blunting of left c ostophrenic angle are stable. No evidence for pneumothorax with limitations due to the supine nature of the study. Endotracheal tube is noted, tip of which terminates slightly caudal to the level of thoracic inlet. IMPRESSION: No evidence for an acute cardiopulmonary process.
--- NOTE | 2019-03-16 08:29 | CT ---
CT angiogram head CT angiogram neck: 03/16/2019 HISTORY: Seizures with altered mental status TECHNIQUE: Axial CT imaging at 1.25 mm intervals from vertex through lung apices with IV contrast usi ng CT angiogram protocol with coronal and sagittal 3-D reformatted imaging FINDINGS: Endotracheal tube in place. Thoracic esophagus is mildly distended and contains fluid. Ther e is a nasogastric tube present curling multiple times within the oral cavity, oropharynx, and hypopharynx, which does not extend below the axial level of the cricoid cartilage. Visualized lung apices unremarkable. Streak artifact from dental amalgam limits detailed assessment at the axial level of the oral cavity. Retroantral and parapharyngeal fat is clear bilaterally. Limited assessment of the aerodigestive trac t appears grossly unremarkable. No lymphadenopathy is evident within the neck. Paranasal sinuses/mastoid air cells grossly unremarkable. Calcification present at the origin of bilateral subclavian arteries. There is no hemodynamically significant stenosis at the origin of the common carotids, subclavian art eries, vertebral arteries, or innominate artery. The common carotid artery and the internal carotid artery is patent bilaterally. Scattered calcified plaque noted involving distal CCA bilaterally, right proximal ECA and left proximal ICA. On the basis of NASCET criteria, there is no hemodynamically significant stenosis involving the common carot id artery or the internal carotid artery on either side. Bilateral vertebral arteries appear unremarkable. The basilar artery and its branches are patent with no hemodynamically significant stenosis, vascular occlusion, or saccular aneurysm involving the posterior circulation. The ICA bifurcation, M1 segment, A1 segment, and distal PILI branches appear unremarkable bilaterally. MCA bifurcation and distal MCA branches appear unremarkable with no saccular aneurysm, high-grade stenosis, or vascular occlusion of the anterior circulation. Severe multilevel degenerative change within the cervical spine. IMPRESSION: No central arterial occlusion intracranially and no hemodynamically significant arterial stenosis within the neck. Malpositioned nasogastric tube. Dr. Higginbotham made aware 8:25 AM 03/16/2019
[2019-03-16 08:43] LABS: CKMB 1.3 ng/mL (0-6.6)
[2019-03-16] MEDS ORDERED: Cefepime 1 GM VIAL ONE (08:48)
[2019-03-16 09:06] LABS: CO2 Tension 45.1 mmHg (35.0-45.0); O2 Tension (PaO2) 451.4 mmHg (> 60.0)
[2019-03-16 09:07] LABS: Actual Bicarbonate (HCO3a) 21.8 mEq/L (22-28); Base Excess (BEa) -4.5 mEq/L (-2.0 to +3.0); Carboxyhemoglobin (COHb) 0.1 gm% (0.0-3.0); Hemoglobin (Hb) 12.4 g/dL (14.0-18.0)
[2019-03-16 09:08] LABS: ALV-art Gradient 205.225 (0-20); Analyzer IN Cardio ER; Calcium, Ionized 1.12 mmol/L (1.12-1.30); Potassium - ABG Lab 4.09 mmol/L (3.70-5.30); Puncture Site RRA
[2019-03-16] MEDS ORDERED: Lactated Ringer's 1,000 ML IV SCH (09:15)
[2019-03-16 09:22] LABS: Bilirubin Negative (Negative); Blood, Urine Trace (Negative); Clarity Clear (Clear); Glucose, Urine (Dipstick) Normal (Negative); Leukocyte 75 Leu/uL (Negative); Nitrite Negative (Negative); Protein, Urine (Dipstick) 20 mg/dL (Neg-Trace); RBC/HPF 0-3 HPF (0-3); Squamous Epithelial 0-3 HPF (0-3); Urobilinogen Normal mg/dL (Less than 2)
[2019-03-16 09:44] LABS: Bacteria/HPF 1+ HPF (None Seen)
[2019-03-16] MEDS ORDERED: Ondansetron PF 4 MG/2 ML Vial IVP PRN (11:02)
[2019-03-16] MEDS ORDERED: Iopamidol-370 76% 500 ML 1 ML ONE (11:58)
--- NOTE | 2019-03-16 12:13 | PDOC.HHP ---
Hospitalist HPI - History of Present Illness altered mental status History of Present Illness: This is an 88 year old male with past medical history of BPH, CAD s/p CA, hypertension, atrial fibrillation s/p ablation, hypothyroidism, BPH who presented with altered mental status that started at 5 am this morning. The states that patient was in bed and was staring off into space and he was not responsive. He then started having some shortness of breath and ambulance was called. Per family he did not have any complaints of chest pain, no fevers , chills, urinary complaints, abdominal pain, nausea, vomiting or diarrhea. The patient has never had a seizure before. He does have a history of SIADH and recently broke his right tibia in January. He has been more sedentary since and has been ambulating with a walker. He has been taking salt tablets three times a day and eating a lot of olives and pickles. He was following with Dr. Douglas as an outpatient. Upon arrival to the ER, he was having a tonic-clonic seizure and oxygen saturation was 80%. The patient had temp of 99.7 and was in afib with RVR with heart rate in the 170's. The patient was intubated for airway protection. The patient is now in sinus rhythm and repeat blood gas shows adequate oxygen saturation. ED Course: The patient had an EKG which showed SVT with low voltage QRS. He had CT head which was negative. CTA showed no stenosis. Chest X ray was unremarkable. The patient was given ativan and propofol and intubated. Labs showed WBC of 15, sodium of 130, lactate of 11.2. The patient was given IV cefepime x 1 and some fluids. Hospitalist ROS - Review of Systems ROS unobtainable: due to endotracheal tube Hospitalist History - Past Medical History Source: family, old records Cardiac: reports: AFIB, CAD, HTN, CA Renal/: reports: Benign prostatic enlarg. Endocrine: reports: Hypothyroidism - Past Surgical History Other Surgical History: PTCA with PCI and stent placement Afib s/p ablation Left lung decortication due to hemothorax from being on coumadin Tonsillectomy - Family History Other Family History: SIADH in the son No history of seizures - Social History Smoking Status: Never smoker (He drinks two beers daily and vodka daily) Living Situation: With Family (lives with and son lives behind him) - Exam General - other findings: Intubated Eye: anicteric sclera ENT: normocephalic atraumatic, no oropharyngeal lesions Neck: supple, symmetric, no JVD Heart: RRR, no murmur, no gallops Respiratory: CTAB, no wheezes, no rales Gastrointestinal: soft, non-tender, non-distended, normal bowel sounds Extremities: no cyanosis, no clubbing Extremities - other findings: Right leg more swollen than left Skin: normal turgor, no lesions, no rashes Neurological - other findings: intubated and sedated Psychiatric - other findings: intubated Hospitalist Results - Labs Result Diagrams: 03/16/19 07:43 03/16/19 07:43 Lab results: WBC 15.4 thou/uL (4.8-10.8) H 03/16/19 07:43 Hgb 12.6 g/dL (14.0-18.0) L 03/16/19 07:43 Hct 38.3 % (42.0-52.0) L 03/16/19 07:43 MCV 101.0 fL (78.0-98.0) H 03/16/19 07:43 Plt Count 309 thou/uL (130-400) 03/16/19 07:43 Neutrophils % 69.1 % (42.0-75.0) 03/16/19 07:43 ABG pH 7.30 (7.35-7.45) L 03/16/19 08:36 ABG pCO2 45.1 mmHg (35.0-45.0) H 03/16/19 08:36 ABG pO2 451.4 mmHg (> 60.0) H 03/16/19 08:36 Sodium 132 mmol/L (136-145) L 03/16/19 07:43 Potassium 5.0 mmol/L (3.5-5.1) 03/16/19 07:43 Chloride 98 mmol/L (98-107) 03/16/19 07:43 Carbon Dioxide 17 mmol/L (23-31) L 03/16/19 07:43 BUN 9 mg/dL (8.4-25.7) 03/16/19 07:43 Creatinine 1.05 mg/dL (0.7-1.3) 03/16/19 07:43 Glucose 221 mg/dL (83-110) H 03/16/19 07:43 Lactic Acid 11.2 mmol/L (0.5-2.2) H* 03/16/19 08:16 Calcium 9.1 mg/dL (7.8-10.44) 03/16/19 07:43 Total Bilirubin 2.4 mg/dL (0.2-1.2) H 03/16/19 07:43 AST 25 U/L (5-34) 03/16/19 07:43 ALT 13 U/L (8-55) 03/16/19 07:43 Alkaline Phosphatase 81 U/L (40-110) 03/16/19 07:43 Creatine Kinase 35 U/L (30-200) 03/16/19 07:43 CK-MB (CK-2) 1.3 ng/mL (0-6.6) 03/16/19 07:43 Troponin I 0.029 ng/mL (< 0.028) H 03/16/19 07:43 B-Natriuretic Peptide 617.3 pg/mL (0-100) H 03/16/19 07:43 Serum Total Protein 7.2 g/dL (5.8-8.1) 03/16/19 07:43 Albumin 4.2 g/dL (3.4-4.8) 03/16/19 07:43 Urine Ketones Negative mg/dL (Negative) 03/16/19 03:36 Urine Blood Trace (Negative) A 03/16/19 03:36 Urine Nitrite Negative (Negative) 03/16/19 03:36 Ur Leukocyte Esterase 75 Bhargav/uL (Negative) A 03/16/19 03:36 Urine RBC 0-3 HPF (0-3) 03/16/19 03:36 Urine WBC 4-6 HPF (0-3) A 03/16/19 03:36 Ur Squamous Epith Cells 0-3 HPF (0-3) 03/16/19 03:36 Urine Bacteria 1+ HPF (None Seen) A 03/16/19 03:36 - EKG Interpretation EKG: EKG: SVT with ST depression in V5 and V6 Hospitalist H&P A/P - Plan Plan: CT head: normal CTA head: no significant stenosis Chest X ray: no acute disease This is an 88 year old male with history of CAD s/p CA who presented with acute altered mental status, hypoxia and shortness of breath, found to have heart rate in 170 on presentation, s/p intubation for tonic clonic seizure #Acute tonic clonic seizure -s/p intubation #Acute hypoxic respiratory failure - possibly PE versus NSTEMI #Lactic acidosis - possibly from seizure vs dehydration vs PE/NSTEMI vs seps #S/p recent right tibia fracture #History of SIADH - etiology of seizure unclear. CT head and CTA are negative for stroke. Possibly could have been induced by hypoxia from PE/NSTEMI or infection? -. EKG showed SVT with some ST depression, however per ER provider patient was in afib with heart rate 170. Unclear if these EKG changes were there before. Troponin is elevated, will continue to trend x 3, could be demand ischemia vs NSTEMI. Currently in sinus rhythm. Will obtain ECHO - sodium 130, not low enough to have caused seizure. This seems to be his baseline. Will give some IV hydration and monitor sodium in 6 hours and repeat lactic acid - currently on propofol, consider switching to versed/fentanyl? Defer to ICU - neurology consult for seizure. Will order IV keppra for now - will start vanc and cefepime for empiric sepsis. Check blood cultures. Urine culture is pending since UA showed some leukocyte esterase - will check lower extremity dopplers to rule out DVT given recent right leg fracture. Unable to do CTA chest to rule out PE since patient got contrast today If positive, will anticoagulate #CAD s/p PCI # History of afib s/p ablation - on aspirin - was on coumadin in past but discontinued due to thoracic hematoma - check TSH #BPH - hirsch catheter placement - hold tamsulosin #Hypothyroidism - continue IV levothyroxine - check TSh Code status: chemical code + intubate, no CPR
[2019-03-16] MEDS ORDERED: Labetalol HCl 100 MG/20 ML VIAL SLOW IVP PRN (12:47)
[2019-03-16] MEDS: Sodium Chloride 0.9% 1,000 ML IV SCH ×2 (12:50→21:20)
[2019-03-16] MEDS: Vancomycin HCl 1 GM in Premix Bag 1 BAG IVPB SCH (12:51)
[2019-03-16] MEDS ORDERED: Pantoprazole 40 MG VIAL IVP SCH (13:00)
[2019-03-16] MEDS ORDERED: Enoxaparin Sodium 40 MG/0.4 ML SYRINGE SC SCH (13:00)
[2019-03-16 13:05] LABS: Lactic Acid 3.6 mmol/L (0.5-2.2)
[2019-03-16 13:17] LABS: CKMB 2.4 ng/mL (0-6.6)
[2019-03-16] MEDS ORDERED: Morphine 2 MG/ML SYRINGE SLOW IVP PRN (14:34)
[2019-03-16] MEDS ORDERED: fentaNYL Citrate/PF 2,000 MCG in Sodium Chloride 0.9% 60 ML IV SCH (14:34)
[2019-03-16] MEDS: Cefepime 2 GM in Sodium Chloride 0.9% 100 ML IVPB SCH ×2 (14:34→21:20)
[2019-03-16] MEDS ORDERED: DISCONTINUE PREVIOUS NARCOTIC PAIN MEDICATIONS AND BENZODIAZEPINES FS SCH (14:34)
[2019-03-16] MEDS ORDERED: Fentanyl BOLUS 250 ML IVPB PRN (14:34)
[2019-03-16] MEDS ORDERED: Propofol BOLUS 1,000 MG/100 ML VIAL IV PRN (14:34)
[2019-03-16] MEDS ORDERED: Lorazepam 2 MG/ML VIAL SLOW IVP PRN (14:34)
[2019-03-16] MEDS: Propofol 1,000 MG/100 ML VIAL IV PRN (15:49)
[2019-03-16 16:31] LABS: CKMB 2.6 ng/mL (0-6.6)
--- NOTE | 2019-03-16 18:39 | ULT ---
US Venous Doppler Bilat History: Edema Comparison: None. Findings: Real-time grayscale, color, and spectral analysis of the bilateral lower extremity venous s ystem was performed. The common femoral, femoral, proximal portions greater saphenous and deep femoral veins as well as the popliteal posterior tibial veins were tentatively interrogated. The left posterior tibial vein was not well seen nor is the right posterior tibial vein. Normal flow, augmentation, and compression on the remainder of the deep veins. Impression: No deep venous thrombosis on this limited exam.
[2019-03-16 19:18] LABS: Anion Gap 10 mmol/L (10-20); BUN (Urea Nitrogen) 9 mg/dL (8.4-25.7); Calc. Creatinine Clearance 0 mL/min (70-130); Carbon Dioxide 28 mmol/L (23-31); Chloride 98 mmol/L (98-107); Estimated GFR-MDRD 79; Glucose 78 mg/dL (83-110); Potassium 3.5 mmol/L (3.5-5.1); Sodium 132 mmol/L (136-145)
[2019-03-16 19:20] LABS: Lactic Acid 1.8 mmol/L (0.5-2.2)
[2019-03-16 19:48] LABS: CKMB 2.9 ng/mL (0-6.6)
--- NOTE | 2019-03-17 00:25 | CON ---
DATE OF CONSULTATION: 03/16/2019 INDICATION FOR CONSULTATION: This is an 88-year-old gentleman with a history of seizure today. He presented to the emergency room. Apparently, when he went to bed last night, he was stable and when he woke up this morning, was going to staring at the ceiling like a blank stare. His family brought him to the emergency room and then apparently he had a seizure, either before arriving the emergency room or when he arrived in the emergency room. He has had some cardiac issues in the past. I believe he has had angioplasty and stent placement, but he is stable as far as that is concerned. He has also had I believe cardioversion and ablation of atrial fibrillation. He has had a LARIAT device placed which is ligation of the left atrial appendage. He no longer needs to be on anticoagulation due to the LARIAT procedure, Otherwise, he has not had any complaints of chest pain. He has been doing stable until he had the seizure today. We were asked to see him due to the slight elevation of the cardiac enzymes and also some T-wave changes in the lateral leads, but he was tachycardic at that time with a heart rate of 177 beats per minute and has some T-wave inversions in V5 and V6, otherwise there was no ST-segment elevation noted. Cardiac enzymes are slightly elevated due to the seizure and demand ischemia, can be considered a type 2 myocardial infarction. At this time, he has been intubated. He was hypoxic when he arrived to the emergency room and required intubation. At this time, he is intubated. He is sedated and otherwise appears to be stable. PAST MEDICAL HISTORY: Significant for the coronary artery disease, angioplasty, stent placement, myocardial infarction, history of congestive heart failure, hypertension, history of SIADH, gastroesophageal reflux disease, occasional urinary tract infection. He has had skin cancers removed. He has had a melanoma. He has had the ablation of the atrial fibrillation, LARIAT procedure. History of hypothyroidism, benign prostatic hypertrophy. He has had left lung decortication. He has had a tonsillectomy. MEDICATIONS: His medications prior to admission included; 1. Lasix. 2. Prilosec. 3. Synthroid. 4. Aspirin. 5. Loratadine. In the emergency room, he was given IV Ringer's lactate. He was given cefepime, diltiazem, injection Diprivan, etomidate, and succinylcholine for the intubation and also he has been given some lorazepam. ALLERGIES: HE IS ALLERGIC TO PENICILLIN, SULFA, AND ERYTHROMYCIN. FAMILY HISTORY: Noncontributory. REVIEW OF SYSTEMS: Not obtainable as the patient is intubated and the family members are not present at this time. PHYSICAL EXAMINATION: VITAL SIGNS: The blood pressure is 121/66; heart rate is in the 70 to 75 and it shows a sinus rhythm; O2 saturations 100%, he is on the ventilator; and respiratory rate is 18. HEENT: Unremarkable. There is no evidence of trauma. NECK: Carotid pulses are present. CHEST: Clear to auscultation. CARDIOVASCULAR: Reveals a regular rate and rhythm. I do not hear any gross murmurs at this time. He does have a systolic murmur at the apex, but otherwise unremarkable. He has a soft systolic murmur at the lower sternal border also, but no gross obstructive or stenotic lesions are noted. ABDOMEN: Soft, flat, and nontender. Positive bowel sounds are present. EXTREMITIES: Show some mild lower extremity edema of the right leg with some mild erythema. However, pedal pulses are present. NEUROLOGIC: The patient is sedated and is on the ventilator. LABORATORY DATA: Shows lactic acid of 3.6. Troponin I was 0.146 with an MB of 2.6. WBC of 15.4, hemoglobin was 12.6, platelet count was 309,000. Urinalysis shows 1+ bacteria. EKG shows a sinus rhythm at this time with no acute changes. Previously when he was in the emergency room, he appeared to be in SVT with a heart rate of 170 beats per minute, but there was no significant ST-segment elevation. He did have some T-wave inversions in V5 and V6. He had occasional PVCs. On closer evaluation of the EKG, it was originally thought in the emergency room that this may have been atrial fibrillation, but the rhythm to by my evaluation appears to be very stable and there appears to be some sort of SVT, most likely AVNRT. IMPRESSION: 1. An elderly gentleman status post seizure witnessed by the family of uncertain etiology. He underwent a brain CT in the emergency room, which showed chronic changes but nothing acute. This will be dealt with by the primary care service and Neurology. 2. History of coronary artery disease in the past. This appears to be stable. Despite having a rapid heart rate, he does not have any ST-segment elevation. We will continue to monitor this and certainly follow his enzymes and continue to monitor. It appears that he has had perhaps a type 2 myocardial infarction due to demand ischemia and associated with the tachycardia and the seizure. 3. History in the past of atrial fibrillation. This appears to be stable at this time. Certainly, once the rate has decreased, he is in now sinus rhythm. We will be more than happy to continue to follow the patient with you, but at this time, his cardiac status appears to be stable. He did have an echocardiogram in 2017, which shows a normal ejection fraction with biatrial enlargement with [id number] tricuspid valve regurgitation and mild mitral valve regurgitation. We will be more than happy to continue to follow the patient with you. Job ID: [id number]
--- NOTE | 2019-03-17 00:34 | CON ---
DATE OF CONSULTATION: HISTORY OF PRESENT ILLNESS: Mr. Koenig is an 88-year-old male. History is obtained from the family who is at the bedside. Apparently, Mr. Koenig went to bed feeling well last night. About 5 in the morning, he awakened very confused. EMS was called. He was transferred here and subsequently has been intubated. He is normally cared for by Dr. Edilberto Douglas. Apparently, he had a seizure in the emergency department. Atrial fibrillation with a rapid response was also noted. He was transferred to critical care, sedated. PAST MEDICAL HISTORY: 1. Remarkable for history of a tibial fracture after a fall recently. He is in a knee immobilizing brace. Films of February 11 this year showed a proximal right tibial fracture. 2. He had an admission in May 2017 with altered mental status, it is felt to be related to hyponatremia. 3. History of hypertension. 4. Hypothyroidism. 5. History of an atrial fibrillation ablation. 6. History of reflux disease. 7. History of coronary artery disease. 8. Pneumonia in the past. 9. Diabetes. 10. Elevated troponins in the past, felt to be demand ischemia. FAMILY HISTORY: Negative for lung disease in early age. SOCIAL HISTORY: He is not currently smoking or drinking on a daily basis. ALLERGIES: HE REPORTS INTOLERANCE TO AZITHROMYCIN, CEPHALOSPORINS, DOXYCYCLINE, LEVAQUIN, PENICILLIN, AND SULFA. FAMILY HISTORY: Negative for lung disease in early age. PHYSICAL EXAMINATION: VITAL SIGNS: Heart rate 75, blood pressure is 132/69, and respiratory rate is in the teens. HEENT: Pupils react. Sclerae are anicteric. NECK: Without lymphadenopathy. LUNGS: Remarkable for coarse equal breath sounds. HEART: Regular rhythm. S1, S2 are normal. ABDOMEN: Soft without guarding or tenderness. EXTREMITIES: Without clubbing, cyanosis, or edema. NEUROLOGIC: Not assessable. LABORATORY DATA: White count 15.4, hemoglobin 12.6, and platelets 309. Sodium 132, potassium 5, chloride 98, bicarb 17, BUN 9, and creatinine 1.05. PH 7.30, CO2 of 45, and PO2 of 451. IMPRESSION: Encephalopathy of unclear etiology. Acute infectious problem would be the most likely cause at this age. I doubt he has encephalitis or meningitis, but this will be kept in mind. Head CT did not show any hemorrhagic lesions. We met with family and answered all of their questions. He will remain mechanically ventilated. We will reassess him one day at a time. CRITICAL CARE TIME: Thirty minutes. Job ID: [id number]
[2019-03-17] MEDS: Propofol 1,000 MG/100 ML VIAL IV PRN ×3 (01:19→23:52)
[2019-03-17] MEDS: Vancomycin HCl 1 GM in Premix Bag 1 BAG IVPB SCH ×2 (01:20→12:46)
[2019-03-17] MEDS: Sodium Chloride 0.9% 1,000 ML IV SCH ×2 (05:03→15:14)
[2019-03-17] MEDS: Cefepime 2 GM in Sodium Chloride 0.9% 100 ML IVPB SCH ×3 (05:03→21:30)
[2019-03-17] MEDS ORDERED: Levothyroxine Sodium 200 MCG VIAL IVP SCH (06:00)
[2019-03-17 06:54] LABS: ALT (SGPT) 11 U/L (8-55); AST (SGOT) 30 U/L (5-34); Albumin 3.2 g/dL (3.4-4.8); Alkaline Phosphatase 66 U/L (40-110); Anion Gap 10 mmol/L (10-20); BUN (Urea Nitrogen) 10 mg/dL (8.4-25.7); Bilirubin, Total 3.6 mg/dL (0.2-1.2); Calc. Creatinine Clearance 53 mL/min (70-130); Calcium 8.1 mg/dL (7.8-10.44); Carbon Dioxide 25 mmol/L (23-31); Chloride 100 mmol/L (98-107); Estimated GFR-MDRD 80; Globulin 2.4 g/dL (2.4-3.5); Glucose 86 mg/dL (83-110); Potassium 3.3 mmol/L (3.5-5.1); Protein, Total 5.6 g/dL (5.8-8.1); Sodium 132 mmol/L (136-145)
[2019-03-17] MEDS: Enoxaparin Sodium 40 MG/0.4 ML SYRINGE SC SCH (07:46)
[2019-03-17] MEDS: Pantoprazole 40 MG VIAL IVP SCH (07:47)
[2019-03-17 08:09] LABS: Analyzer IN Cardio ER; Base Excess (BEa) 0.1 mEq/L (-2.0 to +3.0); CO2 Tension 31.5 mmHg (35.0-45.0); Calcium, Ionized 1.09 mmol/L (1.12-1.30); Carboxyhemoglobin (COHb) 0.6 gm% (0.0-3.0); Hemoglobin (Hb) 11.5 g/dL (14.0-18.0); O2 Tension (PaO2) 119.5 mmHg (> 60.0); Potassium - ABG Lab 3.08 mmol/L (3.70-5.30); pH, Arterial 7.48 (7.35-7.45)
[2019-03-17 08:14] LABS: ALV-art Gradient 55.025 (0-20)
[2019-03-17] MEDS ORDERED: FLU VACC TS2019-20(65YR UP)/PF 180 MCG/0.5 ML SYRINGE IM ONE (09:00)
[2019-03-17] MEDS ORDERED: Prevnar 13-Val Conj/PF 0.5 ML SYRINGE IM ONE (09:00)
--- NOTE | 2019-03-17 10:39 | CON ---
DATE OF CONSULTATION: 03/17/2019 CONSULTING PHYSICIAN: Hospitalist Services. IMPRESSION: 1. New-onset seizure. 2. History of atrial fibrillation, status post LARIAT procedure. PLAN: 1. Continue Keppra 500 mg twice a day. 2. Wean and extubate as able. HISTORY OF PRESENT ILLNESS: Mr. Koenig is an 88-year-old gentleman, who was found by his in bed, acting lethargic. He was subsequently transferred to the emergency room for evaluation. He was witnessed to have a generalized tonic-clonic seizure. His CT scan of the brain showed age-related small-vessel ischemic changes. His CT angiogram did not show any stenosis of any of the major vessels. His echocardiogram showed a 50% to 55% ejection fraction. Dr. Smith was consulted on the case. She has not made any changes at this point. He has not had any further seizure activity, he continues on a propofol drip and he is intubated. PAST MEDICAL HISTORY: Coronary artery disease, hypertension, atrial fibrillation, BPH, and SIADH. ALLERGIES: MULTIPLE. SOCIAL HISTORY: No tobacco or alcohol use known. FAMILY HISTORY: Not obtainable. REVIEW OF SYSTEMS: Not obtainable secondary to his sedation. PHYSICAL EXAMINATION: GENERAL: He is a thin elderly man, lying in bed, on ventilatory support. VITAL SIGNS: Stable. He is afebrile. HEENT: Pupils are equal. Conjunctivae clear. Eyes are conjugate. He is orally intubated. NECK: Appears supple. EXTREMITIES: No cyanosis or edema. NEUROLOGIC: He is minimally responsive to stimulation. He did not open his eyes to stimulation at this point. No abnormal movements were seen. Plantar responses were upgoing bilaterally. SUMMARY: This is an elderly man with new-onset seizure. I agree with current management and reassess him after he is extubated. Job ID: [id number]
--- NOTE | 2019-03-17 11:00 | RAD ---
SEMIUPRIGHT FRONTAL CHEST RADIOGRAPH: 03/17/2019 HISTORY: Dyspnea. COMPARISON: 03/16/2019 FINDINGS: in proper position. Increased linear interstitial density and pulmonary hyperinflation. There is blunting of the costophrenic angle, suggesting small bilateral pleural effusions. There is focal opacity in the right perihilar region and right base, which could signify volume loss, infectious pne umonitis or underlying mass. Thus, follow-up imaging is advised. IMPRESSION: Stable appearance of the chest as detailed above. POS: [facility]
--- NOTE | 2019-03-17 11:21 | CT ---
CT ANGIOGRAM CHEST: 03/17/2019 HISTORY: Hypoxia. Atrial fibrillation. Assess for pulmonary artery embolism. TECHNIQUE: Axial CT imaging obtained at 2.5 mm intervals through the chest with IV contrast, using CT angiogram protocol with coronal and sagittal 3D reformatted imaging. FINDINGS: The imaged upper abdomen demonstrates contrast media refluxing into the hepatic veins and IVC suggest ing suboptimal cardiac output. Endotracheal tube and nasogastric tube in place. The heart is enlarged, particularly the bilateral atria. No axillary, mediastinal or hilar lymphadeno tariq. Significant coronary arterial calcification is present. No pulmonary arterial filling defect is seen to suggest the presence of acute pulmonary embolism. There is partial consolidation of the bilateral lower lobes, left greater than right. There is a foca l area of mass like opacity within the posterior aspect of the right middle lobe as well, which measu res 2.2 cm craniocaudal dimension and 5.2 cm AP dimension. There is no pneumothorax evident on either side. Review of the osseous structures demonstrates no worrisome findings. IMPRESSION: 1. Near complete consolidation/collapse of bilateral lower lobes with a mass like focal area of infer ior-posterior right middle lobe opacity. Some of the lobe opacity may be on the basis of infectious p neumonitis/aspiration, as could the bilateral lower lobe parenchymal opacity. In order to exclude an underlying pulmonary parenchymal mass lesion, follow-up imaging of the chest via CT in six weeks to t hree months following treatment advised. 2. No evidence for pulmonary artery embolism. 3. Prominent coronary arterial calcification. Cardiac enlargement, particularly affecting the bilater al atria. CODE T POS: [facility]
[2019-03-17] MEDS ORDERED: Potassium Chloride 40 MEQ in Sodium Chloride 0.9% 250 ML 250 ML IVPB SCH (12:30)
[2019-03-17 12:32] LABS: Hemoglobin 11.6 g/dL (14.0-18.0); Mean Corpuscular HGB CONC 34.6 g/dL (32.0-36.0); Mean Corpuscular Hemoglobin 34.1 pg (27.0-31.0); Mean Corpuscular Volume 98.5 fL (78.0-98.0); Mean Platelet Volume 6.9 fL (7.4-10.4); Platelet Count 120 thou/uL (130-400); RBC Distribution Width 12.9 % (11.5-14.5); Red Blood Cell (RBC) Count 3.38 mill/uL (4.70-6.10); White Blood Cell (WBC) Count 8.1 thou/uL (4.8-10.8)
--- NOTE | 2019-03-17 13:49 | PDOC.HOSPP ---
- Subjective Encounter Date: 03/17/19 Encounter Time: 12:00 Subjective: The patient is still intubated. Still sedated CTA thorax showing possible pneumonia vs mass. Discussed with , wants this to be discussed with son. - Objective Vital Signs & Weight: Vital Signs (12 hours) Temp Pulse Resp Pulse Ox 03/17/19 13:07 74 03/17/19 10:33 73 03/17/19 09:00 98.8 F 03/17/19 07:57 73 03/17/19 07:34 12 100 03/17/19 07:00 99.3 F 03/17/19 06:00 12 03/17/19 04:00 97.9 F 12 03/17/19 02:00 12 Weight Weight 139 lb 5.314 oz Most Recent Monitor Data Heart Rate from ECG 73 NIBP 134/76 NIBP BP-Mean 95 Respiration from ECG 12 SpO2 100 I&O: 03/16/19 03/17/19 03/18/19 06:59 06:59 06:59 Intake Total 2315 Output Total 1300 370 Balance 1015 -370 Result Diagrams: 03/17/19 12:26 03/17/19 06:19 Additional Labs: Accuchecks 03/17/19 03/17/19 03/16/19 05:56 00:05 17:32 POC Glucose 80 102 74 Hospitalist ROS - Review of Systems ROS unobtainable: due to endotracheal tube - Medication Medications: Active Medications Generic Name Dose Route Start Last Admin Trade Name Freq PRN Reason Stop Dose Admin Enoxaparin Sodium 40 mg 03/17/19 09:00 03/17/19 07:46 Lovenox SC 40 mg 0900 DONALD Administration Levetiracetam 500 mg/ Device 100 mls @ 200 mls/hr 03/16/19 21:00 03/17/19 07: 46 IVPB 100 mls BID DONALD Administration Sodium Chloride 1,000 mls @ 100 mls/hr 03/16/19 11:15 03/17/19 05:03 Normal Saline 0.9% IV 1,000 mls .Q10H DONALD Administration Cefepime HCl 2 gm/ Sodium 100 mls @ 200 mls/hr 03/16/19 14:00 03/17/19 05:03 Chloride IVPB 100 mls Q8HR DONALD Administration Vancomycin HCl 1 gm/ Device 200 mls @ 200 mls/hr 03/16/19 13:00 03/17/19 12: 46 IVPB 200 mls 0100,1300 DONALD Administration Pantoprazole Sodium 40 mg 03/17/19 09:00 03/17/19 07:47 Protonix IVP 40 mg DAILY DONALD Administration Propofol 1,000 mg 03/16/19 14:34 03/17/19 12:46 Diprivan IV 04/15/19 14:34 1,000 mg INF PRN Administration TO ACHIEVE GOAL RASS Protocol - Exam General Appearance: NAD, awake alert Eye: PERRL, anicteric sclera ENT: normocephalic atraumatic, no oropharyngeal lesions Neck: supple, symmetric, no JVD, no thyromegaly Heart: RRR, no murmur, no gallops, no rubs Respiratory: CTAB, no wheezes, no rales, no ronchi Gastrointestinal: soft, non-tender, non-distended, normal bowel sounds Extremities: no cyanosis, no clubbing, no edema Skin: normal turgor, no lesions, no rashes Neurological: cranial nerve grossly intact, normal sensation to touch, no focal deficits, no new deficit Musculoskeletal: normal tone, normal strength, no muscle wasting Psychiatric: normal affect, normal behavior, A&O x 3, oriented to person Hosp A/P - Plan CT head: normal CTA head: no significant stenosis Chest X ray: no acute disease CTA thorax 03/17: complete consolidation/collapse of bilateral lower lobes with a mass like focal area of inferior-posterior right middle lobe oapcity. No PE . Prominent coronary arterial calcification This is an 88 year old male with history of CAD s/p SC who presented with acute altered mental status, hypoxia and shortness of breath, found to have heart rate in 170 on presentation, s/p intubation for tonic clonic seizure #Acute tonic clonic seizure -s/p intubation #Acute hypoxic respiratory failure - possibly from sepsis from pneumonia vs lung mass #Lactic acidosis - possibly from seizure vs sepsis from pneumonia - patient still intubated. Trial of weaning sedation to evaluate extubation. Has good tidal volume and saturation currently. ABG shows pH 7.48 - CT head and CTA negative for stroke. Neurology consulted, started keppra 500 mg IV BID, c ontinue for now - CTA chest showing bilateral lower lobe consolidation and mass in RML. Concern for pneumonia vs tumor? Continue current antibiotics with IV vancomycin and cefepime. Blood cultures negative. WBC was 15, now normal. Urine culture showing gram positive cocci/ mixed, possibly contaminant SVT/Afib with RVR- resolved #Moderate MR #Mild to moderate TR #Mild AR - likely from seizure - HR 170 on admission in afib, EKG showing SVT with some T wave changes in lateral leads. Cardiology consulted, no changes in management - troponin downtrending. - ECHO showing EF 50-55%, moderate MR, mild to moderate TR, mild AR #S/p recent right tibia fracture #RLE swelling - venous dopplers negative for DVT #History of SIADH #Hyponatremia - sodium 132, continue IV fluids, monitor for worsening due to SIADH #HYpokalemia - potassium 3.2, replace with IV potassium #Anemia - HB 11.6 - vitamin B12, folate, TSH normal - will monitor #CAD s/p PCI # History of afib s/p ablation - on aspirin - was on coumadin in past but discontinued due to thoracic hematoma - check TSH #BPH - hirsch catheter placement - hold tamsulosin #Hypothyroidism - continue IV levothyroxine - check TSh Dispo: attempt weaning sedation Code status: chemical code + intubation, no CPR
--- NOTE | 2019-03-17 22:19 | PRG ---
DATE OF SERVICE: 03/17/2019 SUBJECTIVE: Mr. Koenig is not following commands yet. He did open his eyes for his , but he has had no other meaningful response . OBJECTIVE: VITAL SIGNS: His heart rates in the 70s, blood pressure 157/86, and respiratory rate is 15. LUNGS: Remarkable for coarse equal breath sounds. HEART: Regular rhythm. ABDOMEN: Soft. LABORATORY DATA: He is growing gram-positive from his urine. White count 8.1, hemoglobin 11.6, and platelets 120,000. Sodium 132, potassium 3.3, chloride 100 , bicarb 25, BUN 10, and creatinine 0.9. PH 7.48, CO2 of 31, and PO2 of 119. IMPRESSION: Status post intubation for altered mental status. His urinary tract infection may be the cause of his decompensation. It is unlikely that he has encephalitis or meningitis in my opinion. If he fails to have significant neurological improvement by tomorrow, we might consider magnetic resonance imaging. It is unclear whether the seizure in the emergency department was related to a low blood pressure or a metabolic acidosis. Neurology has seen him and recommended Ervin. We will continue to follow. CRITICAL CARE TIME: 30 minutes. Job ID: [id number] MTDD
[2019-03-18] MEDS: Vancomycin HCl 1 GM in Premix Bag 1 BAG IVPB SCH
[2019-03-18 00:44] LABS: Vancomycin, Trough 21.6 ug/mL
[2019-03-18] MEDS: Sodium Chloride 0.9% 1,000 ML IV SCH ×3 (02:46→21:21)
[2019-03-18] MEDS: Cefepime 2 GM in Sodium Chloride 0.9% 100 ML IVPB SCH ×3 (05:59→21:21)
[2019-03-18] MEDS ORDERED: Levothyroxine 100 MCG SDV IVP SCH (06:00)
[2019-03-18 06:01] LABS: Hemoglobin 11.2 g/dL (14.0-18.0); Mean Corpuscular HGB CONC 33.3 g/dL (32.0-36.0); Mean Corpuscular Hemoglobin 33.7 pg (27.0-31.0); Mean Platelet Volume 8.4 fL (7.4-10.4); Platelet Count 127 thou/uL (130-400); RBC Distribution Width 13.2 % (11.5-14.5); Red Blood Cell (RBC) Count 3.32 mill/uL (4.70-6.10); White Blood Cell (WBC) Count 6.4 thou/uL (4.8-10.8)
[2019-03-18 06:25] LABS: ALT (SGPT) 9 U/L (8-55); AST (SGOT) 31 U/L (5-34); Albumin 2.7 g/dL (3.4-4.8); Alkaline Phosphatase 64 U/L (40-110); Anion Gap 14 mmol/L (10-20); BUN (Urea Nitrogen) 10 mg/dL (8.4-25.7); Bilirubin, Total 3.1 mg/dL (0.2-1.2); Calc. Creatinine Clearance 59 mL/min (70-130); Calcium 7.7 mg/dL (7.8-10.44); Carbon Dioxide 18 mmol/L (23-31); Chloride 102 mmol/L (98-107); Estimated GFR-MDRD 90; Globulin 2.6 g/dL (2.4-3.5); Glucose 87 mg/dL (83-110); Potassium 3.5 mmol/L (3.5-5.1); Protein, Total 5.3 g/dL (5.8-8.1); Sodium 130 mmol/L (136-145)
[2019-03-18 08:38] LABS: Actual Bicarbonate (HCO3a) 21.7 mEq/L (22-28); Base Excess (BEa) -2.5 mEq/L (-2.0 to +3.0); CO2 Tension 35.7 mmHg (35.0-45.0); Calcium, Ionized 1.11 mmol/L (1.12-1.30); Hemoglobin (Hb) 12.8 g/dL (14.0-18.0); O2 Tension (PaO2) 124.1 mmHg (> 60.0); Potassium - ABG Lab 3.46 mmol/L (3.70-5.30)
[2019-03-18 08:39] LABS: ALV-art Gradient 45.175 (0-20); Puncture Site RB
[2019-03-18] MEDS: Enoxaparin Sodium 40 MG/0.4 ML SYRINGE SC SCH (09:24)
[2019-03-18] MEDS: Pantoprazole 40 MG VIAL IVP SCH (09:25)
--- NOTE | 2019-03-18 09:29 | PRG ---
DATE OF SERVICE: 03/18/2019 SUBJECTIVE: Fer Koenig is an 88-year-old gentleman, who is intubated on the vent. He is here for several days. Apparently, he is dizzy. EF was normal. He is agitated this morning off sedation. OBJECTIVE: VITAL SIGNS: Pulse 82, blood pressure 140/87, sats 100%, respirations 33. CHEST: Decreased breath sounds. No wheezing. CARDIAC: Normal S1, S2. No gallops. ABDOMEN: No masses. IMPRESSION: 1. Respiratory failure, encephalopathy. 2. Seizure disorder. 3. Probably aspiration pneumonia. 4. Hypothyroidism with normal ejection fraction. We will hold sedation. Continue slow hydration. PT, supportive care, nutrition. His urine is growing gram-positive cocci, which is probably colonization. One-half hour of critical time. Job ID: [id number]
--- NOTE | 2019-03-18 10:13 | RAD ---
PORTABLE CHEST: Date: 03/18/19 HISTORY: Respiratory distress. COMPARISON: Prior day's study. FINDINGS: Heart size is enlarged. Endotracheal and NG tubes are in satisfactory position. Pleural and parenchym al changes all appear stable as compared to the prior exam. There is no new process identified. IMPRESSION: Stable exam. POS: [facility]
[2019-03-18] MEDS: methylPREDNISolone Sod Succ 40 MG VIAL IVP SCH ×3 (11:46→23:18)
--- NOTE | 2019-03-18 12:12 | RAD ---
RIGHT KNEE 4 VIEWS: Date: 03/18/19 HISTORY: Fall in January. Unable to fully extend knee. Follow-up of fracture. COMPARISON: 02/11/19 exam. FINDINGS: Bones are diffusely demineralized. Proximal tibial fracture is again demonstrated. The fracture begin s in the metaphysis region extending into the proximal femoral shaft. It is unchanged in alignment as compared to the prior exam. I do not appreciate any bony bridging callus formation. Fracture remains essentially nondisplaced. IMPRESSION: Stable overall appearance to the proximal tibial fracture. There is not any significant bony callus f ormation seen related to the fracture. Bones are diffusely demineralized. POS: [facility]
[2019-03-18] MEDS ORDERED: VANCOMYCIN IVPB PRN (13:16)
[2019-03-18] MEDS: Vancomycin HCl 750 MG in Sodium Chloride 0.9% 250 ML 250 ML IVPB SCH (13:27)
[2019-03-18] MEDS ORDERED: Cefepime 2 GM VIAL ONE (15:30)
[2019-03-18] MEDS ORDERED: DC Sedation Protocol FS ONE (16:02)
[2019-03-18] MEDS ORDERED: Furosemide 20 MG/2 ML VIAL SLOW IVP SCH (16:15)
[2019-03-18] MEDS: Scopolamine 1.5 mg/72 hour Patch TD SCH (16:45)
--- NOTE | 2019-03-18 18:25 | PDOC.HOSPP ---
- Subjective Encounter Date: 03/18/19 Encounter Time: 18:24 Subjective: The patient is still intubated. He was on spontaneous breathing trial this morning in attempt to extubate. Wasn't completely following commands though. With regards to mass on CT chest, patients son states this is chronic and has been there before and is just scar tissue from his drainage of hemothorax - Objective Vital Signs & Weight: Vital Signs (12 hours) Temp Pulse Resp BP Pulse Ox 03/18/19 16:00 99 03/18/19 15:00 97.1 F L 03/18/19 13:17 100 03/18/19 12:00 12 03/18/19 11:17 98 144/84 H 03/18/19 11:00 98.3 F 03/18/19 09:50 83 155/86 H 03/18/19 08:02 100 149/89 H 03/18/19 08:00 98.1 F 12 100 Weight Admit Weight 141 lb 8.588 oz Weight 141 lb 8.588 oz Most Recent Monitor Data Heart Rate from ECG 102 NIBP 139/98 NIBP BP-Mean 111 Respiration from ECG 14 SpO2 100 I&O: 03/17/19 03/18/19 03/19/19 06:59 06:59 06:59 Intake Total 2315 2535.6 Output Total 1300 1185 795 Balance 1015 1350.6 -795 Result Diagrams: 03/18/19 05:33 03/18/19 05:33 Additional Labs: Accuchecks 03/18/19 03/18/19 12:31 00:36 POC Glucose 86 82 Hospitalist ROS - Review of Systems ROS unobtainable: due to mental status - Medication Medications: Active Medications Generic Name Dose Route Start Last Admin Trade Name Freq PRN Reason Stop Dose Admin Enoxaparin Sodium 40 mg 03/17/19 09:00 03/18/19 09:24 Lovenox SC 40 mg 0900 DONALD Administration Levetiracetam 500 mg/ Device 100 mls @ 200 mls/hr 03/16/19 21:00 03/18/19 09: 24 IVPB 100 mls BID DONALD Administration Sodium Chloride 1,000 mls @ 100 mls/hr 03/16/19 11:15 03/18/19 13:28 Normal Saline 0.9% IV 1,000 mls .Q10H DONALD Administration Cefepime HCl 2 gm/ Sodium 100 mls @ 200 mls/hr 03/16/19 14:00 03/18/19 14:56 Chloride IVPB 100 mls Q8HR DONALD Administration Vancomycin HCl 750 mg/ Sodium 250 mls @ 250 mls/hr 03/18/19 13:00 03/18/19 13 :27 Chloride IVPB 250 mls 0100,1300 DONALD Administration Levothyroxine Sodium 68 mcg 03/18/19 06:00 03/18/19 07:00 Synthroid IVP 68 mcg 0600 DONALD Administration Methylprednisolone Sodium Succinate 40 mg 03/18/19 12:00 03/18/19 11:46 Solu-Medrol IVP 40 mg Q6HR DONALD Administration Pantoprazole Sodium 40 mg 03/17/19 09:00 03/18/19 09:25 Protonix IVP 40 mg DAILY DONALD Administration Scopolamine 1.5 mg 03/18/19 17:00 03/18/19 16:45 Transderm Scop TD 1.5 mg Q3D DONALD Administration Sodium Chloride 10 ml 03/18/19 09:00 03/18/19 09:25 Flush - Normal Saline IVF 10 ml Q12HR DONALD Administration - Exam General Appearance: NAD, awake alert Eye: PERRL, anicteric sclera ENT: normocephalic atraumatic, no oropharyngeal lesions Neck: supple, symmetric, no JVD, no thyromegaly Heart: RRR, no murmur, no gallops Respiratory - other findings: diminished in the lower lobes Gastrointestinal: soft, non-tender, non-distended, normal bowel sounds Extremities: no cyanosis, no clubbing, no edema Skin: normal turgor, no lesions, no rashes Neurological: cranial nerve grossly intact, normal sensation to touch, no focal deficits, no new deficit Musculoskeletal: normal tone, normal strength, no muscle wasting Psychiatric: normal affect, normal behavior, A&O x 3, oriented to person Hosp A/P - Plan CT head: normal CTA head: no significant stenosis Chest X ray: no acute disease CTA thorax 03/17: complete consolidation/collapse of bilateral lower lobes with a mass like focal area of inferior-posterior right middle lobe oapcity. No PE . Prominent coronary arterial calcification This is an 88 year old male with history of CAD s/p CO who presented with acute altered mental status, hypoxia and shortness of breath, found to have heart rate in 170 on presentation, s/p intubation for tonic clonic seizure #Acute tonic clonic seizure -s/p intubation #Acute hypoxic respiratory failure - possibly from sepsis from pneumonia vs lung mass #Lactic acidosis - possibly from seizure vs sepsis from pneumonia -patient extubated to 3L nasal cannula - continue IV keppra for now. CT head and CTA negative for stroke. Will order MRI brain for am - CTA chest showing bilateral lower lobe consolidation and mass in RML. - Continue current antibiotics with IV vancomycin and cefepime. Switch to oral tomorrow. Blood cultures negative. Urine culture showing gram positive cocci/ mixed, possibly contaminant SVT/Afib with RVR- resolved #Moderate MR #Mild to moderate TR #Mild AR - likely from seizure - HR 170 on admission in afib, EKG showing SVT with some T wave changes in lateral leads. Cardiology consulted, no changes in management - troponin downtrending. - ECHO showing EF 50-55%, moderate MR, mild to moderate TR, mild AR - resume aspirin #S/p recent right tibia fracture # Xray today shows stable appearance - venous dopplers negative for DVT #History of SIADH #Hyponatremia - sodium 130 - will d/c IV fluids for now #Anemia - HB 11.6 - vitamin B12, folate, TSH normal - will monitor #CAD s/p PCI # History of afib s/p ablation - on aspirin - was on coumadin in past but discontinued due to thoracic hematoma #BPH - hirsch catheter placement - hold tamsulosin #Hypothyroidism - resume oral levothyroxine. TSH normal #HYpokalemia- resolved Dispo: MRI brain tomorro w Code status: chemical code + intubation, no CPR
[2019-03-18] MEDS ORDERED: Levothyroxine Sodium 125 MCG TAB PO SCH (21:00)
[2019-03-18] MEDS: Levothyroxine Sodium 112 MCG TAB PO SCH (21:23)
[2019-03-18] MEDS: Levothyroxine Sodium 25 MCG TAB PO SCH (21:23)
[2019-03-19] MEDS: Vancomycin HCl 750 MG in Sodium Chloride 0.9% 250 ML 250 ML IVPB SCH (00:39)
[2019-03-19] MEDS: Cefepime 2 GM in Sodium Chloride 0.9% 100 ML IVPB SCH (05:00)
[2019-03-19] MEDS: methylPREDNISolone Sod Succ 40 MG VIAL IVP SCH ×3 (05:01→19:52)
[2019-03-19 06:13] LABS: ALT (SGPT) 12 U/L (8-55); AST (SGOT) 36 U/L (5-34); Albumin 3.3 g/dL (3.4-4.8); Alkaline Phosphatase 68 U/L (40-110); Anion Gap 16 mmol/L (10-20); BUN (Urea Nitrogen) 16 mg/dL (8.4-25.7); Bilirubin, Total 3.1 mg/dL (0.2-1.2); Calc. Creatinine Clearance 47 mL/min (70-130); Calcium 8.2 mg/dL (7.8-10.44); Carbon Dioxide 18 mmol/L (23-31); Chloride 104 mmol/L (98-107); Estimated GFR-MDRD 68; Globulin 2.8 g/dL (2.4-3.5); Glucose 135 mg/dL (83-110); Protein, Total 6.1 g/dL (5.8-8.1); Sodium 134 mmol/L (136-145)
--- NOTE | 2019-03-19 07:50 | RAD ---
Chest one view HISTORY: Dyspnea. Follow-up. COMPARISON: 03/18/2019. FINDINGS: Cardiac silhouette is magnified and enlarged. Pulmonary vasculature remains engorged. Media stinum is midline with aortic calcification. Focal opacity over the lateral segment right middle lobe has become more focal and dense since the mo st recent exam. Small amount of bilateral pleural fluid. Mediastinum is midline. No evidence of pneumothorax. school lunch monitor leads overlie the chest. IMPRESSION: Interval evolution with further consolidation of right middle lobe infiltrate. Pulmonary vascular congestion, hyperinflation, and other findings are otherwise stable.
--- NOTE | 2019-03-19 08:51 | PRG ---
DATE OF SERVICE: 03/19/2019 SUBJECTIVE: Fer Koenig was extubated yesterday. Pulmonary ribeiro, he is better, but is very encephalopathic. OBJECTIVE: VITAL SIGNS: Pulse 119, blood pressure 143/81, saturations 96% on room air. CHEST: Decreased breath sounds, less rhonchi. CARDIAC: Normal S1 and S2. No gallops. ABDOMEN: No masses. LABORATORY DATA: Sodium 131, glucose 131. Urine is growing Enterococcus. ASSESSMENT AND PLAN: 1. Respiratory failure. 2. Encephalopathy. 3. Seizure disorder. At this stage, unfortunately, cannot be transferred out of the ICU because of encephalopathy. I may consider starting him on low-dose Haldol. Await results of his urine culture. Continue observation in the ICU. Hopefully, Speech can see him and he can start diet. Otherwise, one-half hour of critical time. Job ID: [id number]
[2019-03-19] MEDS: Lorazepam 2 MG/ML VIAL SLOW IVP PRN ×4 (08:52→23:19)
[2019-03-19] MEDS: Aspirin 81 mg Enteric Coated Tablet PO SCH (09:15)
[2019-03-19] MEDS: Loratadine 10 MG TAB PO SCH (09:15)
[2019-03-19] MEDS: Enoxaparin Sodium 40 MG/0.4 ML SYRINGE SC SCH (09:16)
[2019-03-19] MEDS: Sodium Chloride 0.9% 1,000 ML IV SCH ×2 (09:21→19:51)
[2019-03-19] MEDS: Pantoprazole 40 MG VIAL IVP SCH (09:21)
[2019-03-19 09:40] LABS: Hemoglobin 11.3 g/dL (14.0-18.0); Mean Corpuscular HGB CONC 33.8 g/dL (32.0-36.0); Mean Corpuscular Hemoglobin 33.5 pg (27.0-31.0); Mean Corpuscular Volume 99.2 fL (78.0-98.0); Mean Platelet Volume 7.2 fL (7.4-10.4); Platelet Count 166 thou/uL (130-400); RBC Distribution Width 12.7 % (11.5-14.5); Red Blood Cell (RBC) Count 3.37 mill/uL (4.70-6.10); White Blood Cell (WBC) Count 8.1 thou/uL (4.8-10.8)
[2019-03-19] MEDS: MEROPENEM 1 GM/50 ML 1 GM in Premix Bag 1 BAG IVPB SCH ×3 (11:43→19:51)
[2019-03-19] MEDS: Haloperidol Lactate 5 MG/ML VIAL SLOW IVP PRN ×3 (12:47→22:22)
--- NOTE | 2019-03-19 16:07 | PDOC.HOSPP ---
- Subjective Encounter Date: 03/19/19 Encounter Time: 12:00 non-verbal Subjective: The patient was very agitated today, biting his IV line. They had to three point restrain him per nursing staff. He was given haldol on my evaluation and was sedated. He has not been following commands. Spoke to Dr. sharp, likely ICU psychosis not from [facility] - Objective Vital Signs & Weight: Vital Signs (12 hours) Temp Pulse Ox 03/19/19 11:00 97.7 F 03/19/19 08:00 93 L 03/19/19 07:00 97.8 F 03/19/19 04:00 98.0 F Weight Admit Weight 141 lb 8.588 oz Weight 142 lb 13.753 oz Most Recent Monitor Data Heart Rate from ECG 109 NIBP 162/106 NIBP BP-Mean 124 Respiration from ECG 17 SpO2 100 I&O: 03/18/19 03/19/19 03/20/19 06:59 06:59 06:59 Intake Total 2535.6 2917 Output Total 1185 2620 453 Balance 1350.6 297 -453 Result Diagrams: 03/19/19 09:20 03/19/19 05:39 Additional Labs: Accuchecks 03/19/19 03/18/19 00:19 18:51 POC Glucose 135 H 116 H Hospitalist ROS - Review of Systems ROS unobtainable: due to mental status - Medication Medications: Active Medications Generic Name Dose Route Start Last Admin Trade Name Freq PRN Reason Stop Dose Admin Aspirin 81 mg 03/19/19 09:00 03/19/19 09:15 Ecotrin PO Not Given DAILY DONALD Enoxaparin Sodium 40 mg 03/17/19 09:00 03/19/19 09:16 Lovenox SC 40 mg 0900 DONALD Administration Haloperidol Lactate 5 mg 03/19/19 08:34 03/19/19 12:47 Haldol SLOW IVP 5 mg Q4H PRN Administration Agitation Levetiracetam 500 mg/ Device 100 mls @ 200 mls/hr 03/16/19 21:00 03/19/19 09: 16 IVPB 100 mls BID DONALD Administration Sodium Chloride 1,000 mls @ 100 mls/hr 03/16/19 11:15 03/19/19 09:21 Normal Saline 0.9% IV 1,000 mls .Q10H DONALD Administration Meropenem 1 gm/ Device 50 mls @ 100 mls/hr 03/19/19 11:00 03/19/19 11:43 IVPB 50 mls 0300,1100,1900 DONALD Administration Levothyroxine Sodium 112 mcg 03/18/19 21:00 03/18/19 21:23 Synthroid PO Not Given HS DONALD Levothyroxine Sodium 25 mcg 03/18/19 21:00 03/18/19 21:23 Synthroid PO Not Given HS DONALD Loratadine 10 mg 03/19/19 09:00 03/19/19 09:15 Claritin PO Not Given DAILY DONALD Lorazepam 1 mg 03/19/19 08:43 03/19/19 12:47 Ativan SLOW IVP 1 mg Q4H PRN Administration Anxiety/Agitation Methylprednisolone Sodium Succinate 40 mg 03/19/19 09:00 03/19/19 09:21 Solu-Medrol IVP 40 mg BID DONALD Administration Pantoprazole Sodium 40 mg 03/17/19 09:00 03/19/19 09:21 Protonix IVP 40 mg DAILY DONALD Administration Scopolamine 1.5 mg 03/18/19 17:00 03/18/19 16:45 Transderm Scop TD 1.5 mg Q3D DONALD Administration Sodium Chloride 10 ml 03/18/19 09:00 03/19/19 09:16 Flush - Normal Saline IVF 10 ml Q12HR DONALD Administration - Exam General - other findings: Lethargic Eye: PERRL, anicteric sclera ENT: normocephalic atraumatic, no oropharyngeal lesions Neck: supple, symmetric, no JVD, no thyromegaly Heart: RRR, no murmur, no gallops, no rubs Respiratory: CTAB, no wheezes, no rales, no ronchi Gastrointestinal: soft, non-tender, non-distended, normal bowel sounds Extremities: no cyanosis, no clubbing, no edema Skin: normal turgor, no lesions, no rashes Neurological: cranial nerve grossly intact, normal sensation to touch, no focal deficits, no new deficit Musculoskeletal: normal tone, normal strength Psychiatric: normal affect, normal behavior, somnolent Hosp A/P - Plan CT head: normal CTA head: no significant stenosis Chest X ray: no acute disease CTA thorax 03/17: complete consolidation/collapse of bilateral lower lobes with a mass like focal area of inferior-posterior right middle lobe oapcity. No PE . Prominent coronary arterial calcification This is an 88 year old male with history of CAD s/p [place] who presented with acute altered mental status, hypoxia and shortness of breath, found to have heart rate in 170 on presentation, s/p intubation for tonic clonic seizure #Acute tonic clonic seizure -s/p intubation #Acute hypoxic respiratory failure - possibly from sepsis from pneumonia vs lung mass #Lactic acidosis - possibly from seizure vs sepsis from pneumonia -patient extubated to 3L nasal cannula - continue IV keppra for now. CT head and CTA negative for stroke. MRI brain pending - CTA chest showing bilateral lower lobe consolidation and mass in RML. - Continue current antibiotics with IV vancomycin and cefepime. Blood cultures negative. Urine culture grew enterococcus which is covered by his current antibiotics SVT/Afib with RVR- resolved #Moderate MR #Mild to moderate TR #Mild AR - likely from seizure - HR 170 on admission in afib, EKG showing SVT with some T wave changes in lateral leads. Cardiology consulted, no changes in management - troponin downtrending. - ECHO showing EF 50-55%, moderate MR, mild to moderate TR, mild AR - continue aspirin #S/p recent right tibia fracture # Xray shows stable appearance - venous dopplers negative for DVT #History of SIADH #Hyponatremia - sodium 134, off fluids #Anemia - HB 11.6 - vitamin B12, folate, TSH normal - will monitor #CAD s/p PCI # History of afib s/p ablation - on aspirin - was on coumadin in past but discontinued due to thoracic hematoma #BPH - hirsch catheter placement - hold tamsulosin #Hypothyroidism - resume oral levothyroxine. TSH normal #HYpokalemia- resolved Dispo: MRI brain today pending improvement of mental status Code status: chemical code + intubation, no CPR
[2019-03-19] MEDS: Levothyroxine Sodium 25 MCG TAB PO SCH (19:52)
[2019-03-19] MEDS: Levothyroxine Sodium 112 MCG TAB PO SCH (19:52)
[2019-03-20] MEDS: Haloperidol Lactate 5 MG/ML VIAL SLOW IVP PRN ×2 (02:55→19:49)
[2019-03-20 04:28] LABS: Hemoglobin 11.2 g/dL (14.0-18.0); Mean Corpuscular HGB CONC 33.4 g/dL (32.0-36.0); Mean Corpuscular Hemoglobin 33.2 pg (27.0-31.0); Mean Corpuscular Volume 99.6 fL (78.0-98.0); Mean Platelet Volume 7.6 fL (7.4-10.4); Platelet Count 147 thou/uL (130-400); RBC Distribution Width 12.6 % (11.5-14.5); Red Blood Cell (RBC) Count 3.38 mill/uL (4.70-6.10); White Blood Cell (WBC) Count 6.5 thou/uL (4.8-10.8)
[2019-03-20 04:38] LABS: ALT (SGPT) 13 U/L (8-55); AST (SGOT) 39 U/L (5-34); Albumin 3.1 g/dL (3.4-4.8); Alkaline Phosphatase 54 U/L (40-110); Anion Gap 14 mmol/L (10-20); BUN (Urea Nitrogen) 19 mg/dL (8.4-25.7); Bilirubin, Total 1.7 mg/dL (0.2-1.2); Calc. Creatinine Clearance 57 mL/min (70-130); Calcium 7.9 mg/dL (7.8-10.44); Carbon Dioxide 19 mmol/L (23-31); Chloride 110 mmol/L (98-107); Estimated GFR-MDRD 84; Globulin 2.6 g/dL (2.4-3.5); Glucose 125 mg/dL (83-110); Potassium 3.6 mmol/L (3.5-5.1); Protein, Total 5.7 g/dL (5.8-8.1); Sodium 139 mmol/L (136-145)
[2019-03-20] MEDS: Sodium Chloride 0.9% 1,000 ML IV SCH ×2 (06:20→17:48)
[2019-03-20] MEDS: Enoxaparin Sodium 40 MG/0.4 ML SYRINGE SC SCH (07:30)
[2019-03-20] MEDS: Aspirin 81 mg Enteric Coated Tablet PO SCH (07:31)
[2019-03-20] MEDS: methylPREDNISolone Sod Succ 40 MG VIAL IVP SCH (07:31)
[2019-03-20] MEDS: Pantoprazole 40 MG VIAL IVP SCH (07:31)
[2019-03-20] MEDS: Loratadine 10 MG TAB PO SCH (07:31)
--- NOTE | 2019-03-20 08:34 | RAD ---
CHEST 1 VIEW: INDICATION: Daily CCU examination. COMPARISON: Prior exam 03/19/2019. FINDINGS/IMPRESSION: Cardiomegaly and mild pulmonary vascular congestion persists. The right lung base airspace opacity i s similar appearing. COPD change is similar appearing. Bilateral pleural effusions persist. No pne umothorax is evident. POS: BH
--- NOTE | 2019-03-20 08:36 | PRG ---
DATE OF SERVICE: 03/20/2019 SUBJECTIVE: This morning, he is still encephalopathic. OBJECTIVE: VITAL SIGNS: Sats are 100% on 1 L, blood pressure 137/92, respiratory rate 18. CHEST: No wheezing or crackles. CARDIAC: Normal S1, S2. No gallops. ABDOMEN: No masses. LABORATORY DATA: His albumin is 3.1. His urine is Enterococcus. White count 6.5, H and H are 11 and 33, platelet count 147. ASSESSMENT: Gram-negative urosepsis, encephalopathy, respiratory failure, right-sided pneumonia. PLAN: Continue supportive care, PT. Meropenem was initiated for his Enterococcus faecalis. He is unable to swallow today. We will probably put a feeding tube to feeding. Continue observation in the ICU. One-half hour of critical time. Job ID: [id number]
[2019-03-20] MEDS: MEROPENEM 1 GM/50 ML 1 GM in Premix Bag 1 BAG IVPB SCH ×2 (10:06→20:07)
[2019-03-20] MEDS ORDERED: Furosemide 20 MG/2 ML VIAL SLOW IVP SCH (10:30)
--- NOTE | 2019-03-20 10:31 | PDOC.HOSPP ---
- Subjective Encounter Date: 03/20/19 Encounter Time: 10:28 Subjective: The patient is still agitated, not following commands. The patient received some ativan and haldol overnight. They do not think he is sedated enough for an MRI. Chest X ray showing pulmonary edema Antibiotics switched to meropenem today - Objective Vital Signs & Weight: Vital Signs (12 hours) Temp Pulse Ox 03/20/19 07:19 100 03/20/19 04:00 96.6 F L 03/20/19 00:00 96.6 F L Weight Admit Weight 141 lb 8.588 oz Weight 145 lb 8.081 oz Most Recent Monitor Data Heart Rate from ECG 85 NIBP 128/86 NIBP BP-Mean 100 Respiration from ECG 18 SpO2 99 I&O: 03/19/19 03/20/19 03/21/19 06:59 06:59 06:59 Intake Total 2917 2745 2810 Output Total 2620 1046 455 Balance 297 6338 1390 Result Diagrams: 03/20/19 03:34 03/20/19 03:34 Hospitalist ROS - Review of Systems ROS unobtainable: due to mental status - Medication Medications: Active Medications Generic Name Dose Route Start Last Admin Trade Name Freq PRN Reason Stop Dose Admin Aspirin 81 mg 03/19/19 09:00 03/20/19 07:31 Ecotrin PO Not Given DAILY DONALD Enoxaparin Sodium 40 mg 03/17/19 09:00 03/20/19 07:30 Lovenox SC 40 mg 0900 DONALD Administration Haloperidol Lactate 5 mg 03/19/19 08:34 03/20/19 02:55 Haldol SLOW IVP 5 mg Q4H PRN Administration Agitation Levetiracetam 500 mg/ Device 100 mls @ 200 mls/hr 03/16/19 21:00 03/20/19 07: 30 IVPB 100 mls BID DONALD Administration Sodium Chloride 1,000 mls @ 100 mls/hr 03/16/19 11:15 03/20/19 06:20 Normal Saline 0.9% IV 1,000 mls .Q10H DONALD Administration Meropenem 1 gm/ Device 50 mls @ 100 mls/hr 03/19/19 11:00 03/20/19 10:06 IVPB 50 mls 0300,1100,1900 DONALD Administration Labetalol HCl 20 mg 03/16/19 12:47 03/20/19 01:04 Normodyne SLOW IVP 20 mg Q4H PRN Administration SBP >= 180 Levothyroxine Sodium 112 mcg 03/18/19 21:00 03/19/19 19:52 Synthroid PO Not Given HS DONALD Levothyroxine Sodium 25 mcg 03/18/19 21:00 03/19/19 19:52 Synthroid PO Not Given HS DONALD Loratadine 10 mg 03/19/19 09:00 03/20/19 07:31 Claritin PO Not Given DAILY DONALD Lorazepam 1 mg 03/19/19 08:43 03/19/19 23:19 Ativan SLOW IVP 1 mg Q4H PRN Administration Anxiety/Agitation Pantoprazole Sodium 40 mg 03/17/19 09:00 03/20/19 07:31 Protonix IVP 40 mg DAILY DONALD Administration Scopolamine 1.5 mg 03/18/19 17:00 03/18/19 16:45 Transderm Scop TD 1.5 mg Q3D DONALD Administration Sodium Chloride 10 ml 03/18/19 09:00 03/20/19 07:31 Flush - Normal Saline IVF 10 ml Q12HR DONALD Administration - Exam General Appearance: NAD, awake alert Eye: PERRL, anicteric sclera ENT: normocephalic atraumatic, no oropharyngeal lesions Neck: supple, symmetric, no JVD, no thyromegaly Heart: RRR, no murmur, no gallops, no rubs Respiratory: rales Gastrointestinal: soft, non-tender, non-distended Extremities: no cyanosis, no clubbing, no edema Skin - other findings: multiple bruising noted on arms. Mild macular rashes on face Neurological - other findings: spontaneously moves all four extremities Musculoskeletal: normal tone, normal strength, no muscle wasting Psychiatric: normal affect, normal behavior, A&O x 3, oriented to person Hosp A/P - Plan CT head: normal CTA head: no significant stenosis Chest X ray: no acute disease CTA thorax 03/17: complete consolidation/collapse of bilateral lower lobes with a mass like focal area of inferior-posterior right middle lobe oapcity. No PE . Prominent coronary arterial calcification This is an 88 year old male with history of CAD s/p [place] who presented with acute altered mental status, hypoxia and shortness of breath, found to have heart rate in 170 on presentation, s/p intubation for tonic clonic seizure #Acute tonic clonic seizure -s/p intubation and extubation #Acute hypoxic respiratory failure - possibly from sepsis from pneumonia vs lung mass vs acute diastolic CHF #Lactic acidosis - possibly from seizure vs sepsis #Enterococcus faecalis UTI -patient extubated to 3L nasal cannula. - continue IV keppra for seizures. CT head and CTA negative for stroke. MRI brain when patient more sedated. - CTA chest showing bilateral lower lobe consolidation and mass in RML. Mass per family is old and secondary to scarring from hemothorax drainage - was on vancomycin and cefepime from 03/16 -03/19. Switched to IV meropenem on 03/20. Urine culture growing 100,000 E faecalis, sensitive to penicillin - will give dose of lasix 20 mg IV x 1 for pleural effusions. Repeat chest X ray tomorrow # Acute encephalopathy - possibly secondary to ICU delirium vs UTI vs postictal - on seroquel prn, haldol prn - MRI brain pending since patient had seizure - switched antibiotics to meropenem today SVT/Afib with RVR- resolved #Moderate MR #Mild to moderate TR #Mild AR - likely from seizure - HR 170 on admission in afib, EKG showing SVT with some T wave changes in lateral leads. Cardiology consulted, no changes in management - troponin downtrending. - ECHO showing EF 50-55%, moderate MR, mild to moderate TR, mild AR - continue aspirin #S/p recent right tibia fracture # Xray shows stable appearance - venous dopplers negative for DVT #History of SIADH #Hyponatremia - sodium 134, off fluids #Anemia - HB 11.6 - vitamin B12, folate, TSH normal - will monitor #CAD s/p PCI # History of afib s/p ablation - on aspirin - was on coumadin in past but discontinued due to thoracic hematoma #BPH - hirsch catheter placement - hold tamsulosin #Hypothyroidism - resume oral levothyroxine. TSH normal #HYpokalemia- resolved Dispo: MRI brain today pending improvement of mental status Code status: chemical code + intubation, no CPR
--- NOTE | 2019-03-20 14:09 | RAD ---
EXAM: Single view of the abdomen HISTORY: Dobbhoff tube placement COMPARISON: None FINDINGS: Single view of the abdomen shows a nonspecific, nonobstructive bowel gas pattern. A Dobbhof f tube is seen folded back on itself with its tip in the fundus of the stomach. The bones are unremarkable. IMPRESSION: Dobbhoff tube located in the stomach
--- NOTE | 2019-03-20 14:51 | RAD ---
EXAM: XR Abdomen 1 View/KUB PROVIDED CLINICAL HISTORY: Evaluate Dobbhoff feeding tube placement. COMPARISON: 03/20/2019 at 1343 hours. FINDINGS: A Dobbhoff feeding tube is again noted overlying the upper and mid abdomen and coiled overlying the e xpected location of the stomach with tip overlying the expected location of the gastric fundus. Mild gaseous distention of loops of small bowel are seen. Pleural and parenchymal changes right lung base are again partially imaged. Linear radio opaque density overlies midline of the pelvis which may represent overlying temperature. Vascular calcifications are seen with degenerative changes in th e spine. IMPRESSION: Dobbhoff feeding tube noted in place and not significantly changed in position compared to the prior exam with tip overlying the region of the gastric fundus..
--- NOTE | 2019-03-20 15:01 | RAD ---
EXAM: Single view of the abdomen HISTORY: Dobbhoff tube placement COMPARISON: 03/20/2019 FINDINGS: Single view of the abdomen shows a nonspecific, nonobstructive bowel gas pattern. A Dobbhof f tube is again seen in the stomach. Degenerative changes are seen in the spine. IMPRESSION: Dobbhoff tube located in the stomach.
[2019-03-20] MEDS: Levothyroxine Sodium 112 MCG TAB PO SCH (19:34)
[2019-03-20] MEDS: Levothyroxine Sodium 25 MCG TAB PO SCH (19:34)
[2019-03-20] MEDS: Lorazepam 2 MG/ML VIAL SLOW IVP PRN (22:54)
[2019-03-21] MEDS: Sodium Chloride 0.9% 1,000 ML IV SCH ×2 (00:16→12:56)
[2019-03-21] MEDS: MEROPENEM 1 GM/50 ML 1 GM in Premix Bag 1 BAG IVPB SCH ×3 (02:26→19:31)
[2019-03-21 05:32] LABS: Hemoglobin 11.8 g/dL (14.0-18.0); Mean Corpuscular HGB CONC 33.3 g/dL (32.0-36.0); Mean Corpuscular Hemoglobin 32.6 pg (27.0-31.0); Mean Corpuscular Volume 98.1 fL (78.0-98.0); Mean Platelet Volume 6.9 fL (7.4-10.4); Platelet Count 169 thou/uL (130-400); RBC Distribution Width 12.6 % (11.5-14.5); Red Blood Cell (RBC) Count 3.62 mill/uL (4.70-6.10); White Blood Cell (WBC) Count 9.1 thou/uL (4.8-10.8)
[2019-03-21 05:54] LABS: ALT (SGPT) 15 U/L (8-55); AST (SGOT) 39 U/L (5-34); Albumin 3.4 g/dL (3.4-4.8); Alkaline Phosphatase 51 U/L (40-110); Anion Gap 5 mmol/L (10-20); BUN (Urea Nitrogen) 18 mg/dL (8.4-25.7); Bilirubin, Total 1.2 mg/dL (0.2-1.2); Calc. Creatinine Clearance 62 mL/min (70-130); Calcium 8.3 mg/dL (7.8-10.44); Carbon Dioxide 31 mmol/L (23-31); Chloride 108 mmol/L (98-107); Estimated GFR-MDRD 90; Globulin 2.6 g/dL (2.4-3.5); Glucose 104 mg/dL (83-110); Potassium 3.2 mmol/L (3.5-5.1); Sodium 141 mmol/L (136-145)
--- NOTE | 2019-03-21 07:36 | RAD ---
CHEST 1 VIEW: Date: 03/21/19 INDICATION: History of CCU examination, on ventilator. COMPARISON: Prior exam dated 03/20/19. FINDINGS: There has been interval placement of a feeding tube with its tip projecting over the region of the ca rdia. There is moderate cardiomegaly. There is persistent right basilar pleural parenchymal opacity. Pulmonary vascular congestion and interstitial edema persists. IMPRESSION: Interval placement of feeding tube, otherwise stable exam. POS: BH
[2019-03-21] MEDS ORDERED: Potassium Chloride 20 MEQ TAB PO SCH (08:00)
[2019-03-21] MEDS: Enoxaparin Sodium 40 MG/0.4 ML SYRINGE SC SCH (08:08)
[2019-03-21] MEDS: Pantoprazole 40 MG VIAL IVP SCH (08:08)
[2019-03-21] MEDS: Aspirin 81 mg Enteric Coated Tablet PO SCH (08:09)
[2019-03-21] MEDS: Loratadine 10 MG TAB PO SCH (08:09)
[2019-03-21] MEDS: Furosemide 40 MG/4 ML VIAL SLOW IVP SCH (08:56)
--- NOTE | 2019-03-21 13:05 | PDOC.HOSPP ---
- Subjective Encounter Date: 03/21/19 Encounter Time: 10:00 Subjective: The patient is more alert today. Dobhoff tube placed yesterday and feedings started. Patient is now starting to follow some commands but is not speaking. Chest X ray showing persistent pulmonary vascular congestion Per nurse, he required haldol last night, but has not required any this morning. - Objective Vital Signs & Weight: Vital Signs (12 hours) Temp Pulse Ox 03/21/19 12:00 97.7 F 03/21/19 07:40 97 03/21/19 07:00 98.6 F 03/21/19 03:00 97.7 F Weight Admit Weight 141 lb 8.588 oz Weight 147 lb 0.773 oz Most Recent Monitor Data Heart Rate from ECG 112 NIBP 146/104 NIBP BP-Mean 118 Respiration from ECG 15 SpO2 98 I&O: 03/20/19 03/21/19 03/22/19 06:59 06:59 06:59 Intake Total 2745 5468 Output Total 1046 3405 1240 Balance 1699 2063 -1240 Result Diagrams: 03/21/19 05:07 03/21/19 05:07 Additional Labs: Accuchecks 03/21/19 03/21/19 12:46 00:36 POC Glucose 98 109 Hospitalist ROS - Review of Systems Constitutional: denies: fever, chills Cardiovascular: denies: chest pain, palpitations - Medication Medications: Active Medications Generic Name Dose Route Start Last Admin Trade Name Freq PRN Reason Stop Dose Admin Aspirin 81 mg 03/19/19 09:00 03/21/19 08:09 Ecotrin PO 81 mg DAILY DONALD Administration Enoxaparin Sodium 40 mg 03/17/19 09:00 03/21/19 08:08 Lovenox SC 40 mg 0900 DONALD Administration Furosemide 40 mg 03/21/19 09:00 03/21/19 08:56 Lasix SLOW IVP 40 mg DAILY DONALD Administration Haloperidol Lactate 5 mg 03/19/19 08:34 03/20/19 19:49 Haldol SLOW IVP 5 mg Q4H PRN Administration Agitation Levetiracetam 500 mg/ Device 100 mls @ 200 mls/hr 03/16/19 21:00 03/21/19 08: 08 IVPB 100 mls BID DONALD Administration Sodium Chloride 1,000 mls @ 100 mls/hr 03/16/19 11:15 03/21/19 12:56 Normal Saline 0.9% IV 1,000 mls .Q10H DONALD Administration Meropenem 1 gm/ Device 50 mls @ 100 mls/hr 03/19/19 11:00 03/21/19 12:06 IVPB 50 mls 0300,1100,1900 DONALD Administration Labetalol HCl 20 mg 03/16/19 12:47 03/20/19 01:04 Normodyne SLOW IVP 20 mg Q4H PRN Administration SBP >= 180 Levothyroxine Sodium 112 mcg 03/18/19 21:00 03/20/19 19:34 Synthroid PO 112 mcg HS DONALD Administration Levothyroxine Sodium 25 mcg 03/18/19 21:00 03/20/19 19:34 Synthroid PO 25 mcg HS DONALD Administration Loratadine 10 mg 03/19/19 09:00 03/21/19 08:09 Claritin PO 10 mg DAILY DONALD Administration Lorazepam 1 mg 03/19/19 08:43 03/20/19 22:54 Ativan SLOW IVP 1 mg Q4H PRN Administration Anxiety/Agitation Pantoprazole Sodium 40 mg 03/17/19 09:00 03/21/19 08:08 Protonix IVP 40 mg DAILY DONALD Administration Quetiapine Fumarate 12.5 mg 03/19/19 17:54 03/20/19 19:33 Seroquel PO 12.5 mg BIDPRN PRN Administration Agitation Scopolamine 1.5 mg 03/18/19 17:00 03/18/19 16:45 Transderm Scop TD 1.5 mg Q3D DONALD Administration Sodium Chloride 10 ml 03/18/19 09:00 03/21/19 08:09 Flush - Normal Saline IVF 10 ml Q12HR DONALD Administration - Exam General Appearance: NAD, awake alert Eye: PERRL, anicteric sclera ENT: normocephalic atraumatic, no oropharyngeal lesions Neck: supple, symmetric, no JVD Heart: RRR, no murmur, no gallops, no rubs Respiratory - other findings: mild rales bilaterally Gastrointestinal: soft, non-tender, non-distended, normal bowel sounds Extremities: no cyanosis, no clubbing, no edema Skin: normal turgor, no lesions, no rashes Neurological - other findings: Patient squeezed fingers on command and pushes his foot down both sides Musculoskeletal: normal tone, normal strength, no muscle wasting Psychiatric: not oriented Hosp A/P - Plan CT head: normal CTA head: no significant stenosis Chest X ray: no acute disease CTA thorax 03/17: complete consolidation/collapse of bilateral lower lobes with a mass like focal area of inferior-posterior right middle lobe oapcity. No PE . Prominent coronary arterial calcification This is an 88 year old male with history of CAD s/p OH who presented with acute altered mental status, hypoxia and shortness of breath, found to have heart rate in 170 on presentation, s/p intubation for tonic clonic seizure #Acute tonic clonic seizure -s/p intubation and extubation - unclear etiology, possibly from pneumonia - continue IV keppra po bid. CT head and CTA negative for stroke, MRI brain pending. Neuro on board #Acute hypoxic respiratory failure from pneumonia vs acute diastolic CHF #Lactic acidosis - possibly from seizure vs sepsis -patient extubated to 3L nasal cannula. CTA chest showing bilateral lower lobe consolidation and mass in RML. Mass per family is old and secondary to scarring from hemothorax drainage - was on vancomycin and cefepime from 03/16 -03/19. Switched to IV meropenem on 03/20 due to enterococcal UTI . Continue for two more days - chest X ray showing persistent pulmonary congestion, given IV lasix 20 mg yesterday, will give another 40 mg IV today # Acute encephalopathy - possibly secondary to ICU delirium vs UTI vs postictal - on seroquel prn, haldol prn. Try to avoid sedatives if possible - MRI brain pending since patient had seizure - started tube feeds hoping it will improve mental status #Enterococcus faecalis UTI - on IV meropenem day 3 #HYpokalemia - potassium 3.2, replace with 40 meq potassium SVT/Afib with RVR- resolved #Moderate MR #Mild to moderate TR #Mild AR - likely from seizure - HR 170 on admission in afib, EKG showing SVT with some T wave changes in lateral leads. Cardiology consulted, no changes in management - troponin downtrending. ECHO showing EF 50-55%, moderate MR, mild to moderate TR, mild AR - continue aspirin #S/p recent right tibia fracture # Xray shows stable appearance - venous dopplers negative for DVT #Anemia - HB 11.8 - vitamin B12, folate, TSH normal - will monitor #CAD s/p PCI # History of afib s/p ablation - on aspirin - was on coumadin in past but discontinued due to thoracic hematoma #BPH - hirsch catheter placement - hold tamsulosin #Hypothyroidism - resume oral levothyroxine. TSH normal #History of SIADH #Hyponatremia- resolved Dispo: MRI brain pending Code status: chemical code + intubation, no CPR
[2019-03-21] MEDS: Haloperidol Lactate 5 MG/ML VIAL SLOW IVP PRN (13:28)
--- NOTE | 2019-03-21 17:04 | PRG ---
DATE OF SERVICE: 03/21/2019 OBJECTIVE: VITAL SIGNS: Heart rate is 104, blood pressure 141/102, respiratory rate 20. LUNGS: Remarkable for coarse equal breath sounds. HEART: Regular rhythm. ABDOMEN: Soft. EXTREMITIES: Without asymmetry. LABORATORY DATA: White count 9.1, hemoglobin 11.8, platelets 169,000. Sodium 141, potassium 3.2, chloride 108, bicarb 31, BUN 18, and creatinine 0.81. IMPRESSION: 1. Encephalopathy, slowly improving. 2. Enterococcus urinary tract infection. Enterococcus is berg sensitive. PLAN: Continue supportive care in the Critical Care Unit for now. Job ID: [id number]
[2019-03-21] MEDS: Scopolamine 1.5 mg/72 hour Patch TD SCH (17:47)
[2019-03-21 18:33] LABS: Anion Gap 11 mmol/L (10-20); BUN (Urea Nitrogen) 16 mg/dL (8.4-25.7); Calc. Creatinine Clearance 63 mL/min (70-130); Calcium 8.2 mg/dL (7.8-10.44); Carbon Dioxide 31 mmol/L (23-31); Chloride 103 mmol/L (98-107); Estimated GFR-MDRD Greater than 90; Glucose 99 mg/dL (83-110); Sodium 142 mmol/L (136-145)
[2019-03-21 18:55] LABS: Potassium 2.9 mmol/L (3.5-5.1)
[2019-03-21] MEDS ORDERED: Potassium Chloride 40 MEQ in Sodium Chloride 0.9% 250 ML 250 ML IVPB PRN (19:09)
[2019-03-21] MEDS ORDERED: Magnesium 2 GM/50 ML 2 GM in Premix Bag 1 BAG IVPB PRN (19:09)
[2019-03-21] MEDS ORDERED: Potassium Chloride 20 MEQ TAB PO PRN (19:09)
[2019-03-21] MEDS ORDERED: Potassium Chloride 40 MEQ in Premix Bag 1 BAG IVPB PRN (19:09)
[2019-03-21] MEDS ORDERED: Potassium Phosphate 12 MMOL in Sodium Chloride 0.9% 250 ML 250 ML IV PRN (19:09)
[2019-03-21] MEDS ORDERED: CCU ELECTROLYTE REPLACEMENT PROTOCOL FS PRN (19:09)
[2019-03-21] MEDS ORDERED: Magnesium Oxide 400 MG TAB PO PRN ×2 (19:09)
[2019-03-21] MEDS ORDERED: PHOS-NAK 1 PKT PACK PO PRN ×2 (19:09)
[2019-03-21] MEDS ORDERED: Potassium Phosphate 15 MMOL in Sodium Chloride 0.9% 250 ML 250 ML IV PRN (19:09)
[2019-03-21] MEDS ORDERED: Magnesium 2 GM/50 ML 2 GM in Premix Bag 1 BAG IVPB SCH (19:45)
[2019-03-21 20:02] LABS: Phosphorus 1.2 mg/dL (2.3-4.7)
[2019-03-21] MEDS: Levothyroxine Sodium 112 MCG TAB PO SCH (21:49)
[2019-03-21] MEDS: Levothyroxine Sodium 25 MCG TAB PO SCH (21:49)
[2019-03-22] MEDS: Sodium Chloride 0.9% 1,000 ML IV SCH ×2 (01:18→20:34)
[2019-03-22] MEDS: MEROPENEM 1 GM/50 ML 1 GM in Premix Bag 1 BAG IVPB SCH ×3 (02:26→19:23)
[2019-03-22 02:48] LABS: ALT (SGPT) 19 U/L (8-55); AST (SGOT) 40 U/L (5-34); Albumin 3.4 g/dL (3.4-4.8); Alkaline Phosphatase 46 U/L (40-110); Anion Gap 10 mmol/L (10-20); BUN (Urea Nitrogen) 16 mg/dL (8.4-25.7); Bilirubin, Total 1.4 mg/dL (0.2-1.2); Calc. Creatinine Clearance 63 mL/min (70-130); Carbon Dioxide 31 mmol/L (23-31); Chloride 105 mmol/L (98-107); Estimated GFR-MDRD Greater than 90; Globulin 2.3 g/dL (2.4-3.5); Glucose 102 mg/dL (83-110); Potassium 3.6 mmol/L (3.5-5.1); Protein, Total 5.7 g/dL (5.8-8.1); Sodium 142 mmol/L (136-145)
[2019-03-22 02:51] LABS: Phosphorus 1.2 mg/dL (2.3-4.7)
[2019-03-22] MEDS: Potassium Phosphate 9 MMOL in Sodium Chloride 0.9% 100 ML IVPB PRN (06:26)
[2019-03-22] MEDS: Enoxaparin Sodium 40 MG/0.4 ML SYRINGE SC SCH (08:33)
[2019-03-22] MEDS: Furosemide 40 MG/4 ML VIAL SLOW IVP SCH (08:34)
[2019-03-22] MEDS: Pantoprazole 40 MG VIAL IVP SCH (08:34)
--- NOTE | 2019-03-22 09:32 | RAD ---
CHEST 1 VIEW: INDICATION: Daily CCU examination. IMPRESSION: Cardiomegaly persists. Bilateral perihilar opacities and effusions are stable. Feeding tube has bee n removed. No pneumothorax is evident. IMPRESSION: 1. Interval removal of the feeding tube. 2. Otherwise, stable exam. POS: BH
[2019-03-22] MEDS ORDERED: Sodium Phosphate 15 MMOL in Sodium Chloride 0.9% 250 ML 250 ML IVPB SCH (10:00)
--- NOTE | 2019-03-22 10:07 | PRG ---
DATE OF SERVICE: 03/22/2019 SUBJECTIVE: Mr. Koenig is currently in the ICU with encephalopathy. He is actually my patient in the clinic. I have known him for over 10 years. He was briefly intubated while in the hospital and now he is confused. This morning, he seems a little more alert, but his speech is slurred. OBJECTIVE: VITAL SIGNS: Temperature is 98.7, pulse 98, blood pressure 150/87, respiratory rate 16, O2 saturation 96%. HEENT: Unremarkable. NECK: No adenopathy or JVD. CHEST: Clear anteriorly. CARDIAC: S1 and S2. Regular. ABDOMEN: Soft. EXTREMITIES: No edema. LABORATORY DATA: Sodium 142, potassium 3.6, chloride 105, CO2 of 31, BUN 16, creatinine 0.7, glucose 102. Phosphorus level was 1.2. ASSESSMENT: 1. Encephalopathy. 2. Status post endotracheal intubation for respiratory failure. 3. Enterococcal urinary tract infection. PLAN: 1. I am going to minimize his sedatives/antipsychotic medications. 2. Up in chair as tolerated. 3. Initiate physical therapy. 4. Of note, the finding in the right chest is chronic in nature from a previous hemothorax evacuated many years ago. Job ID: [id number]
--- NOTE | 2019-03-22 10:22 | PDOC.HOSPP ---
- Subjective Encounter Date: 03/22/19 Encounter Time: 10:38 Subjective: The patient is alert and sitting up in a chair. He is on 2L of oxygen. He has mild cough and shortness of breath. Patient is unaware of any events that happened prior to hospitalization. Explained that he had a seizure. Patient is thirsty and requesting for water. Per nurse, he was given water and choked Tube feed removed overnight - Objective Vital Signs & Weight: Vital Signs (12 hours) Temp Pulse Ox 03/22/19 08:00 98 03/22/19 07:00 98.7 F 03/22/19 06:45 98 03/22/19 00:00 97.6 F Weight Admit Weight 141 lb 8.588 oz Weight 142 lb 10.225 oz Most Recent Monitor Data Heart Rate from ECG 102 NIBP 155/93 NIBP BP-Mean 113 Respiration from ECG 22 SpO2 93 I&O: 03/21/19 03/22/19 03/23/19 06:59 06:59 06:59 Intake Total 5468 3504 Output Total 3405 2540 750 Balance 2063 964 -750 Result Diagrams: 03/21/19 05:07 03/22/19 02:15 Additional Labs: Accuchecks 03/22/19 03/21/19 03/21/19 06:23 23:10 12:46 POC Glucose 88 89 98 Hospitalist ROS - Review of Systems Cardiovascular: denies: chest pain, palpitations, orthopnea - Medication Medications: Active Medications Generic Name Dose Route Start Last Admin Trade Name Freq PRN Reason Stop Dose Admin Aspirin 81 mg 03/19/19 09:00 03/21/19 08:09 Ecotrin PO 81 mg DAILY DONALD Administration Enoxaparin Sodium 40 mg 03/17/19 09:00 03/22/19 08:33 Lovenox SC 40 mg 0900 DONALD Administration Furosemide 40 mg 03/21/19 09:00 03/22/19 08:34 Lasix SLOW IVP 40 mg DAILY DONALD Administration Levetiracetam 500 mg/ Device 100 mls @ 200 mls/hr 03/16/19 21:00 03/22/19 08: 33 IVPB 100 mls BID DONALD Administration Sodium Chloride 1,000 mls @ 100 mls/hr 03/16/19 11:15 03/22/19 01:18 Normal Saline 0.9% IV 1,000 mls .Q10H DONALD Administration Meropenem 1 gm/ Device 50 mls @ 100 mls/hr 03/19/19 11:00 03/22/19 02:26 IVPB 50 mls 0300,1100,1900 DONALD Administration Potassium Chloride 40 meq/ 270 mls @ 135 mls/hr 03/21/19 19:09 03/21/19 19:49 Sodium Chloride IVPB 270 mls ASDIR PRN Administration FOR SERUM K+ 2.5 - 3.5 Magnesium Sulfate 1 gm/ Sodium 102 mls @ 102 mls/hr 03/21/19 19:09 03/22/19 05:17 Chloride IV 102 mls PRN PRN Administration MAG LEVEL 1.4 - 2.0 Potassium Phosphate 9 mmol/ 103 mls @ 25.75 mls/hr 03/21/19 19:09 03/22/19 06 :26 Sodium Chloride IVPB 103 mls ASDIR PRN Administration Phosphate 1.0-1.8 Labetalol HCl 20 mg 03/16/19 12:47 03/20/19 01:04 Normodyne SLOW IVP 20 mg Q4H PRN Administration SBP >= 180 Levothyroxine Sodium 112 mcg 03/18/19 21:00 03/21/19 21:49 Synthroid PO 112 mcg HS DONALD Administration Levothyroxine Sodium 25 mcg 03/18/19 21:00 03/21/19 21:49 Synthroid PO 25 mcg HS DONALD Administration Loratadine 10 mg 03/19/19 09:00 03/21/19 08:09 Claritin PO 10 mg DAILY DONALD Administration Miscellaneous Medication 1 pkt 03/21/19 19:09 03/21/19 20:13 Phos-Nak PO 1 pkt TIDPRN PRN Administration FOR PHOS LEVEL 1.0 - 1.8 Pantoprazole Sodium 40 mg 03/17/19 09:00 03/22/19 08:34 Protonix IVP 40 mg DAILY DONALD Administration Potassium Chloride 40 meq 03/21/19 19:09 03/21/19 19:30 Klor-Con PER TUBE 40 meq ASDIR PRN Administration FOR SERUM K+ 2.5-3.5 Sodium Chloride 10 ml 03/18/19 09:00 03/21/19 21:50 Flush - Normal Saline IVF 10 ml Q12HR DONALD Administration - Exam General Appearance: NAD, awake alert Eye: PERRL, anicteric sclera ENT: normocephalic atraumatic, no oropharyngeal lesions Neck: supple, symmetric, no JVD, no thyromegaly Heart: RRR, no murmur, no gallops, no rubs Respiratory: CTAB, no wheezes Respiratory - other findings: crackles at the bases bilaterally Gastrointestinal: soft, non-tender, non-distended Extremities: no cyanosis, no clubbing, no edema Skin - other findings: bruising from multiple blood draws Hosp A/P - Plan CT head: normal CTA head: no significant stenosis Chest X ray: no acute disease CTA thorax 03/17: complete consolidation/collapse of bilateral lower lobes with a mass like focal area of inferior-posterior right middle lobe opacity. No PE . Prominent coronary arterial calcification Chest X ray 03/22: cardiomegaly and persistent pleural effusion This is an 88 year old male with history of CAD s/p OH who presented with acute altered mental status, hypoxia and shortness of breath, found to have heart rate in 170 on presentation, s/p intubation for tonic clonic seizure #Acute tonic clonic seizure -s/p intubation and extubation - unclear etiology, possibly from pneumonia - continue IV keppra po bid. CT head and CTA negative for stroke, MRI brain ordered since earlier this week, unable to be done today due to holiday. Attempt tomorrow -needs speech and swallow eval before switching to oral #Acute hypoxic respiratory failure from pneumonia vs acute diastolic CHF #Lactic acidosis - possibly from seizure vs sepsis - extubated, currently on nasal cannula. CTA chest showing bilateral lower lobe consolidation and mass in RML. Mass per family is old and secondary to scarring from hemothorax drainage - was on vancomycin and cefepime from 03/16 -03/19. Switched to IV meropenem on 03/20 due to enterococcal UTI . Will d/c meropenem today - hold additional lasix today due to hypokalemia and hypophosphatema overnight - PT and OT # Acute encephalopathy - possibly secondary to ICU delirium vs UTI vs postictal - on seroquel prn, haldol prn. Try to avoid sedatives if po ssible - MRI brain pending since patient had seizure - started tube feeds hoping it will improve mental status #Enterococcus faecalis UTI - was on cefepime since and switched to meropenem on . D/c antibiotics this evening #HYpokalemia - resolved #Hypophosphatemia - phosphate 1.2, replace with 2 grams of phos SVT/Afib with RVR- resolved #Moderate MR #Mild to moderate TR #Mild AR - likely from seizure - HR 170 on admission in afib, EKG showing SVT with some T wave changes in lateral leads. Cardiology consulted, no changes in management - troponin downtrending. ECHO showing EF 50-55%, moderate MR, mild to moderate TR, mild AR - continue aspirin #S/p recent right tibia fracture # Xray shows stable appearance - venous dopplers negative for DVT #Anemia - HB 11.8 - vitamin B12, folate, TSH normal - will monitor #CAD s/p PCI # History of afib s/p ablation - on aspirin - was on coumadin in past but discontinued due to thoracic hematoma #BPH - hirsch catheter placement - hold tamsulosin #Hypothyroidism - continue oral levothyroxine. TSH normal #History of SIADH #Hyponatremia- resolved Dispo: MRI brain pending, unable to be done today due to holiday Code status: chemical code + intubation, no CPR
[2019-03-22 12:27] LABS: Phosphorus 1.9 mg/dL (2.3-4.7)
--- NOTE | 2019-03-22 13:01 | RAD ---
KUB INDICATION: Dobbhoff feeding tube placement COMPARISON: Prior dated March 20, 2019 FINDINGS: Bowel gas: Nonspecific but without overt appearance of obstruction. Lung bases: Bibasilar opacities, right greater than left with small bilateral pleural effusions Additional findings: Dobbhoff feeding tube replaced with the tip in the region of the distal gastric body Osseous structures: No acute osseous abnormality is demonstrated. IMPRESSION: 1. Dobbhoff feeding tube tip as above
[2019-03-22] MEDS: Loratadine 10 MG TAB PO SCH (14:22)
[2019-03-22] MEDS: Aspirin 81 mg Enteric Coated Tablet PO SCH (14:22)
[2019-03-22] MEDS ORDERED: Aspirin 81 mg Enteric Coated Tablet PO SCH (14:30)
[2019-03-22] MEDS ORDERED: Loratadine 10 MG TAB PO SCH (14:30)
[2019-03-22] MEDS: Levothyroxine Sodium 112 MCG TAB PO SCH (21:06)
[2019-03-22] MEDS: Levothyroxine Sodium 25 MCG TAB PO SCH (21:07)
[2019-03-23] MEDS: MEROPENEM 1 GM/50 ML 1 GM in Premix Bag 1 BAG IVPB SCH ×3 (03:10→17:37)
[2019-03-23 03:52] LABS: ALT (SGPT) 18 U/L (8-55); AST (SGOT) 31 U/L (5-34); Albumin 3.3 g/dL (3.4-4.8); Alkaline Phosphatase 45 U/L (40-110); Anion Gap 8 mmol/L (10-20); BUN (Urea Nitrogen) 13 mg/dL (8.4-25.7); Bilirubin, Total 1.4 mg/dL (0.2-1.2); Calc. Creatinine Clearance 61 mL/min (70-130); Calcium 8.1 mg/dL (7.8-10.44); Carbon Dioxide 36 mmol/L (23-31); Chloride 101 mmol/L (98-107); Estimated GFR-MDRD Greater than 90; Globulin 2.3 g/dL (2.4-3.5); Glucose 127 mg/dL (83-110); Magnesium 1.9 mg/dL (1.6-2.6); Protein, Total 5.6 g/dL (5.8-8.1); Sodium 142 mmol/L (136-145)
[2019-03-23 03:57] LABS: Potassium 2.9 mmol/L (3.5-5.1)
--- NOTE | 2019-03-23 07:59 | RAD ---
CHEST 1 VIEW: INDICATION: Daily CCU examination. COMPARISON: Prior exam dated 03/22/2019. IMPRESSION: There is a new Dobbhoff feeding tube in place. Bilateral infrahilar opacities persist. Bilateral pl eural effusions persist. COPD change is similar appearing. No pneumothorax is demonstrated. Cardio megaly is stable. POS: BH
[2019-03-23] MEDS: Pantoprazole 40 MG VIAL IVP SCH (08:25)
[2019-03-23] MEDS: Aspirin 81 mg Enteric Coated Tablet PO SCH (08:25)
[2019-03-23] MEDS: Furosemide 20 MG TAB PO SCH (08:25)
[2019-03-23] MEDS: Enoxaparin Sodium 40 MG/0.4 ML SYRINGE SC SCH (08:25)
[2019-03-23] MEDS: Loratadine 10 MG TAB PO SCH (08:26)
[2019-03-23 08:35] LABS: Potassium 3.7 mmol/L (3.5-5.1)
[2019-03-23 08:55] LABS: Phosphorus 1.6 mg/dL (2.3-4.7)
[2019-03-23] MEDS: Potassium Phosphate 9 MMOL in Sodium Chloride 0.9% 100 ML IVPB PRN (09:36)
--- NOTE | 2019-03-23 09:56 | EKG ---
Test Reason : STAT Blood Pressure : / mmHG Vent. Rate : 089 BPM Atrial Rate : 089 BPM P-R Int : 000 ms QRS Dur : 082 ms QT Int : 414 ms P-R-T Axes : 085 -58 056 degrees QTc Int : 503 ms Sinus rhythm with 1st degree A-V block with Premature supraventricular complexes and with occasional Premature ventricular complexes Left axis deviation Low voltage QRS Cannot rule out Anterior infarct , age undetermined Abnormal ECG When compared with ECG of 16-MAR-2019 07:47, (Unconfirmed) Significant changes have occurred Confirmed by ALIREZA RUBIO, . SNate (4) on 03/23/2019 9:55:39 AM Referred By: [facility] Confirmed By:DR. Chrissy LAY MD
--- NOTE | 2019-03-23 10:13 | PRG ---
DATE OF SERVICE: 03/23/2019 SUBJECTIVE: The patient is up in a chair. His speech is much better than it has been. OBJECTIVE: VITAL SIGNS: Temperature 98.2, pulse 89, blood pressure 140/86, O2 saturation 98%. HEENT: Unremarkable. NECK: No adenopathy or JVD. LUNGS: Clear anteriorly. CARDIAC: S1, S2. Regular. ABDOMEN: Soft. EXTREMITIES: No edema. LABORATORY DATA: Sodium 142, potassium 2.9, chloride 101, CO2 of 36, BUN 13, creatinine was 0.7, glucose 127, phosphorus is 1.6. Chest x-ray shows no acute changes. ASSESSMENT: 1. Improved encephalopathy. 2. Status post endotracheal intubation for respiratory failure. 3. Enterococcal urinary tract infection. PLAN: He is stable enough for transfer to the intermediate care unit. He needs to continue the antibiotic therapy. Speech probably needs to look at him again in the next couple days to see if he can swallow. Overall, his progress is trending in the right direction. Job ID: [id number]
--- NOTE | 2019-03-23 11:25 | PDOC.HOSPP ---
- Subjective Encounter Date: 03/23/19 Encounter Time: 11:24 Subjective: Mr. Koenig was seen today in follow-up of metabolic encephalopathy. He knows he is in [facility] , and that it is 2019. He did not know this is a hospital. He is sitting up in chair. His speech is mostly clear. - Objective Vital Signs & Weight: Vital Signs (12 hours) Temp Pulse Ox 03/23/19 08:00 98 03/23/19 07:50 96 03/23/19 07:00 98.2 F 03/23/19 04:00 98 F 03/23/19 03:55 98 Weight Admit Weight 141 lb 8.588 oz Weight 135 lb 12.876 oz Most Recent Monitor Data Heart Rate from ECG 93 NIBP 130/73 NIBP BP-Mean 92 Respiration from ECG 22 SpO2 100 I&O: 03/22/19 03/23/19 03/24/19 06:59 06:59 06:59 Intake Total 3504 2388 100 Output Total 2540 3170 500 Balance 964 -242 400 Result Diagrams: 03/21/19 05:07 03/23/19 08:06 Additional Labs: Accuchecks 03/23/19 03/23/19 03/22/19 06:19 00:27 15:52 POC Glucose 129 H 108 96 Hospitalist ROS - Medication Medications: Active Medications Generic Name Dose Route Start Last Admin Trade Name Lukasq PRN Reason Stop Dose Admin Aspirin 81 mg 03/23/19 09:00 03/23/19 08:25 Ecotrin PO 81 mg DAILY DONALD Administration Enoxaparin Sodium 40 mg 03/17/19 09:00 03/23/19 08:25 Lovenox SC 40 mg 09 DONALD Administration Furosemide 40 mg 03/23/19 09:00 03/23/19 08:25 Lasix PO 40 mg DAILY DONALD Administration Levetiracetam 500 mg/ Device 100 mls @ 200 mls/hr 03/16/19 21:00 03/23/19 08: 26 IVPB 100 mls BID DONALD Administration Meropenem 1 gm/ Device 50 mls @ 100 mls/hr 03/19/19 11:00 03/23/19 03:10 IVPB 50 mls 0300,1100,1900 DONALD Administration Potassium Chloride 40 meq/ 270 mls @ 135 mls/hr 03/21/19 19:09 03/21/19 19:49 Sodium Chloride IVPB 270 mls ASDIR PRN Administration FOR SERUM K+ 2.5 - 3.5 Magnesium Sulfate 1 gm/ Sodium 102 mls @ 102 mls/hr 03/21/19 19:09 03/22/19 05:17 Chloride IV 102 mls PRN PRN Administration MAG LEVEL 1.4 - 2.0 Potassium Phosphate 9 mmol/ 103 mls @ 25.75 mls/hr 03/21/19 19:09 03/23/19 09 :36 Sodium Chloride IVPB 103 mls ASDIR PRN Administration Phosphate 1.0-1.8 Labetalol HCl 20 mg 03/16/19 12:47 03/20/19 01:04 Normodyne SLOW IVP 20 mg Q4H PRN Administration SBP >= 180 Levothyroxine Sodium 112 mcg 03/18/19 21:00 03/22/19 21:06 Synthroid PO 112 mcg HS DONALD Administration Levothyroxine Sodium 25 mcg 03/18/19 21:00 03/22/19 21:07 Synthroid PO 25 mcg HS DONALD Administration Loratadine 10 mg 03/23/19 09:00 03/23/19 08:26 Claritin PO 10 mg DAILY DONALD Administration Magnesium Oxide 400 mg 03/21/19 19:09 03/23/19 04:10 Magnesium Oxide PO 400 mg BIDPRN PRN Administration FOR SERUM MAG 1.4 - 2.0 Miscellaneous Medication 1 pkt 03/21/19 19:09 03/21/19 20:13 Phos-Nak PO 1 pkt TIDPRN PRN Administration FOR PHOS LEVEL 1.0 - 1.8 Pantoprazole Sodium 40 mg 03/17/19 09:00 03/23/19 08:25 Protonix IVP 40 mg DAILY DONALD Administration Potassium Chloride 40 meq 03/21/19 19:09 03/23/19 04:09 Klor-Con PER TUBE 40 meq ASDIR PRN Administration FOR SERUM K+ 2.5-3.5 Sodium Chloride 10 ml 03/18/19 09:00 03/23/19 08:26 Flush - Normal Saline IVF 10 ml Q12HR DONALD Administration - Exam Eye: PERRL Heart: RRR, no murmur, no gallops, no rubs, normal peripheral pulses Respiratory: CTAB, no wheezes, no rales, no ronchi, normal chest expansion, no tachypnea Gastrointestinal: soft, non-tender, non-distended, normal bowel sounds, no palpable masses, no hepatomegaly, no splenomegaly Extremities: no cyanosis, no clubbing, 1+ LE edema (trace lower exrtemity ankle edema) Hosp A/P (1) Acute metabolic encephalopathy Code(s): G93.41 - METABOLIC ENCEPHALOPATHY Status: Acute (2) Atrial fibrillation Code(s): I48.91 - UNSPECIFIED ATRIAL FIBRILLATION Status: Chronic (3) Pneumonia Code(s): J18.9 - PNEUMONIA, UNSPECIFIED ORGANISM Status: Chronic (4) UTI (urinary tract infection) Status: Suspected - Plan * Acute metabolic encephalopathy due to UTI and Pneumonia. According to the description from the chart he is improving * UTI due to Enterococcus- continue Meropenem * Pneumonia- continue Meropenem * Dysphagia- continue with DHT feeding through the weekend- Speech to re-assess soon * HTN- blood pressure is stable * AFIB- His heart rate is stable * CAD- stable * Hypothyroidism- clinically euthyroid- continue Levothyroxine
[2019-03-23] MEDS: Levothyroxine Sodium 25 MCG TAB PO SCH (21:40)
[2019-03-23] MEDS: Levothyroxine Sodium 112 MCG TAB PO SCH (21:40)
[2019-03-24] MEDS: MEROPENEM 1 GM/50 ML 1 GM in Premix Bag 1 BAG IVPB SCH ×3 (03:13→18:31)
[2019-03-24 04:22] LABS: ALT (SGPT) 18 U/L (8-55); AST (SGOT) 30 U/L (5-34); Albumin 3.5 g/dL (3.4-4.8); Alkaline Phosphatase 44 U/L (40-110); BUN (Urea Nitrogen) 14 mg/dL (8.4-25.7); Bilirubin, Total 1.9 mg/dL (0.2-1.2); Calc. Creatinine Clearance 62 mL/min (70-130); Calcium 8.6 mg/dL (7.8-10.44); Estimated GFR-MDRD Greater than 90; Globulin 2.5 g/dL (2.4-3.5); Glucose 101 mg/dL (83-110); Magnesium 1.9 mg/dL (1.6-2.6)
[2019-03-24 04:32] LABS: Anion Gap 12 mmol/L (10-20); Carbon Dioxide 35 mmol/L (23-31); Chloride 100 mmol/L (98-107); Potassium 3.3 mmol/L (3.5-5.1); Sodium 144 mmol/L (136-145)
[2019-03-24] MEDS: Enoxaparin Sodium 40 MG/0.4 ML SYRINGE SC SCH (09:45)
[2019-03-24] MEDS: Aspirin 81 mg Enteric Coated Tablet PO SCH (09:45)
[2019-03-24] MEDS: Pantoprazole 40 MG VIAL IVP SCH (09:46)
[2019-03-24] MEDS: Furosemide 20 MG TAB PO SCH (09:46)
[2019-03-24] MEDS: Loratadine 10 MG TAB PO SCH (09:46)
--- NOTE | 2019-03-24 10:21 | PRG ---
DATE OF SERVICE: 03/24/2019 SUBJECTIVE: He is about the same, still somewhat disoriented. OBJECTIVE: VITAL SIGNS: Temperature 98.1, pulse 96, blood pressure 150/91, O2 saturation 100%. HEENT: Unremarkable. NECK: No adenopathy or JVD. CHEST: Clear anteriorly. CARDIAC: S1, S2. Regular. ABDOMEN: Soft. EXTREMITIES: No edema. LABORATORY DATA: Sodium 144, potassium 3.3, chloride 100, CO2 of 35, BUN 14, creatinine 0.7 and glucose 101. ASSESSMENT: 1. Encephalopathy. 2. Status post respiratory failure. 3. Enterococcal urinary tract infection. PLAN: He is slowly improving with conservative therapy. He remains on antibiotics for his urinary tract infection. Hopefully, his mental status improves. He can be moved out to the medical floor. Job ID: [id number]
--- NOTE | 2019-03-24 11:06 | PDOC.HOSPP ---
- Subjective Encounter Date: 03/24/19 Encounter Time: 11:05 Subjective: Mr. Koenig was seen today in follow-up of encephalopathy, and UTI. He is a bit more oriented this morning. He does not have any complaints. - Objective Vital Signs & Weight: Vital Signs (12 hours) Temp Pulse Ox 03/24/19 08:00 98 03/24/19 07:09 98.1 F 03/24/19 05:00 98.1 F 03/24/19 00:00 97.8 F Weight Admit Weight 141 lb 8.588 oz Weight 136 lb 3.2 oz Most Recent Monitor Data Heart Rate from ECG 96 NIBP 150/91 NIBP BP-Mean 110 Respiration from ECG 19 SpO2 100 I&O: 03/23/19 03/24/19 03/25/19 06:59 06:59 06:59 Intake Total 2388 200 Output Total 3170 500 Balance -782 -300 Result Diagrams: 03/21/19 05:07 03/24/19 03:29 Additional Labs: Accuchecks 03/24/19 03/24/19 03/23/19 05:50 00:13 17:58 POC Glucose 122 H 102 117 H 03/23/19 12:43 POC Glucose 132 H Hospitalist ROS - Medication Medications: Active Medications Generic Name Dose Route Start Last Admin Trade Name Liv PRN Reason Stop Dose Admin Aspirin 81 mg 03/23/19 09:00 03/24/19 09:45 Ecotrin PO 81 mg DAILY DONALD Administration Enoxaparin Sodium 40 mg 03/17/19 09:00 03/24/19 09:45 Lovenox SC 40 mg 09 DONALD Administration Furosemide 40 mg 03/23/19 09:00 03/24/19 09:46 Lasix PO 40 mg DAILY DONALD Administration Levetiracetam 500 mg/ Device 100 mls @ 200 mls/hr 03/16/19 21:00 03/24/19 09: 45 IVPB 100 mls BID DONALD Administration Meropenem 1 gm/ Device 50 mls @ 100 mls/hr 03/19/19 11:00 03/24/19 03:13 IVPB 50 mls 0300,1100,1900 DONALD Administration Potassium Chloride 40 meq/ 270 mls @ 135 mls/hr 03/21/19 19:09 03/21/19 19:49 Sodium Chloride IVPB 270 mls ASDIR PRN Administration FOR SERUM K+ 2.5 - 3.5 Magnesium Sulfate 1 gm/ Sodium 102 mls @ 102 mls/hr 03/21/19 19:09 03/22/19 05:17 Chloride IV 102 mls PRN PRN Administration MAG LEVEL 1.4 - 2.0 Potassium Phosphate 9 mmol/ 103 mls @ 25.75 mls/hr 03/21/19 19:09 03/23/19 09 :36 Sodium Chloride IVPB 103 mls ASDIR PRN Administration Phosphate 1.0-1.8 Labetalol HCl 20 mg 03/16/19 12:47 03/20/19 01:04 Normodyne SLOW IVP 20 mg Q4H PRN Administration SBP >= 180 Levothyroxine Sodium 112 mcg 03/18/19 21:00 03/23/19 21:40 Synthroid PO 112 mcg HS DONALD Administration Levothyroxine Sodium 25 mcg 03/18/19 21:00 03/23/19 21:40 Synthroid PO 25 mcg HS DONALD Administration Loratadine 10 mg 03/23/19 09:00 03/24/19 09:46 Claritin PO 10 mg DAILY DONALD Administration Magnesium Oxide 400 mg 03/21/19 19:09 03/23/19 04:10 Magnesium Oxide PO 400 mg BIDPRN PRN Administration FOR SERUM MAG 1.4 - 2.0 Miscellaneous Medication 1 pkt 03/21/19 19:09 03/21/19 20:13 Phos-Nak PO 1 pkt TIDPRN PRN Administration FOR PHOS LEVEL 1.0 - 1.8 Pantoprazole Sodium 40 mg 03/17/19 09:00 03/24/19 09:46 Protonix IVP 40 mg DAILY DONALD Administration Potassium Chloride 40 meq 03/21/19 19:09 03/23/19 04:09 Klor-Con PER TUBE 40 meq ASDIR PRN Administration FOR SERUM K+ 2.5-3.5 Sodium Chloride 10 ml 03/18/19 09:00 03/24/19 09:46 Flush - Normal Saline IVF Not Given Q12HR DONALD - Exam Eye: PERRL, anicteric sclera Heart: RRR, no murmur, no gallops, no rubs, normal peripheral pulses Respiratory: CTAB, no wheezes, no rales, no ronchi, normal chest expansion, no tachypnea, normal percussion Gastrointestinal: soft, non-tender, non-distended, normal bowel sounds, no palpable masses, no hepatomegaly Extremities: no cyanosis, no clubbing, no edema Hosp A/P (1) Acute metabolic encephalopathy Code(s): G93.41 - METABOLIC ENCEPHALOPATHY Status: Acute (2) Atrial fibrillation Code(s): I48.91 - UNSPECIFIED ATRIAL FIBRILLATION Status: Chronic (3) Pneumonia Code(s): J18.9 - PNEUMONIA, UNSPECIFIED ORGANISM Status: Chronic (4) UTI (urinary tract infection) Status: Suspected - Plan * Acute metabolic encephalopathy due to UTI and Pneumonia. continues to slowly improve * UTI due to Enterococcus- continue Meropenem ( he has multiple drug allergies * Pneumonia- continue Meropenem * Dysphagia- continue with DHT feeding * HTN- blood pressure is stable * AFIB- His heart rate is stable * CAD- stable * Hypothyroidism- clinically euthyroid- continue Levothyroxine
[2019-03-24] MEDS ORDERED: Potassium Chloride 20 MEQ TAB PO SCH (11:15)
[2019-03-24] MEDS: Levothyroxine Sodium 25 MCG TAB PO SCH (20:34)
[2019-03-24] MEDS: Levothyroxine Sodium 112 MCG TAB PO SCH (20:34)
[2019-03-25] MEDS: MEROPENEM 1 GM/50 ML 1 GM in Premix Bag 1 BAG IVPB SCH ×3 (02:02→19:35)
[2019-03-25 05:29] LABS: ALT (SGPT) 16 U/L (8-55); AST (SGOT) 30 U/L (5-34); Albumin 3.6 g/dL (3.4-4.8); Alkaline Phosphatase 51 U/L (40-110); BUN (Urea Nitrogen) 15 mg/dL (8.4-25.7); Bilirubin, Total 2.4 mg/dL (0.2-1.2); Calc. Creatinine Clearance 56 mL/min (70-130); Calcium 8.7 mg/dL (7.8-10.44); Estimated GFR-MDRD Greater than 90; Globulin 2.7 g/dL (2.4-3.5); Glucose 108 mg/dL (83-110); Protein, Total 6.3 g/dL (5.8-8.1)
[2019-03-25 05:38] LABS: Anion Gap 12 mmol/L (10-20); Carbon Dioxide 38 mmol/L (23-31); Chloride 96 mmol/L (98-107); Potassium 3.5 mmol/L (3.5-5.1); Sodium 142 mmol/L (136-145)
[2019-03-25] MEDS: Furosemide 20 MG TAB PO SCH (08:28)
[2019-03-25] MEDS: Aspirin 81 mg Enteric Coated Tablet PO SCH (08:28)
[2019-03-25] MEDS: Enoxaparin Sodium 40 MG/0.4 ML SYRINGE SC SCH (08:28)
[2019-03-25] MEDS: Loratadine 10 MG TAB PO SCH (08:30)
[2019-03-25] MEDS: Pantoprazole 40 MG VIAL IVP SCH (08:30)
--- NOTE | 2019-03-25 08:36 | PRG ---
DATE OF SERVICE: 03/25/2019 SUBJECTIVE: Mr. Koenig is up in a chair. He remains encephalopathic or demented. PHYSICAL EXAMINATION: VITAL SIGNS: Temperature 97.2, pulse 108, blood pressure 116/83, and O2 saturation is 99%. HEENT: Unremarkable. NECK: No JVD. CHEST: Clear, but distant breath sounds. CARDIAC: S1, S2. Regular. ABDOMEN: Soft. EXTREMITIES: No edema. LABORATORY DATA: Sodium 142, potassium 3.5, chloride 96, CO2 of 38, BUN 15, creatinine 0.8, and glucose 108. ASSESSMENT: 1. 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 The patient really has not improved much over this hospitalization. 2. Status post respiratory failure, requiring mechanical ventilation. 3. Enterococcal urinary tract infection. PLAN: 1. We would minimize any type of sedating medication. 2. From my standpoint, he can go up to the medical floor. Job ID: [id number]
--- NOTE | 2019-03-25 10:08 | PDOC.HOSPP ---
- Subjective Encounter Date: 03/25/19 Encounter Time: 10:04 Subjective: Mr. Koenig was seen today in follow-up of encephalopathy, and pneumonia and UTI. He continues to have some confusion. He did not know the year this time, but knows where he is. He does not have any complaints. - Objective Vital Signs & Weight: Vital Signs (12 hours) Temp 03/25/19 07:29 97.2 F L 03/25/19 04:00 98.2 F 03/25/19 00:00 97.8 F Weight Admit Weight 141 lb 8.588 oz Weight 132 lb 3.2 oz Most Recent Monitor Data Heart Rate from ECG 108 NIBP 116/83 NIBP BP-Mean 94 Respiration from ECG 13 SpO2 99 I&O: 03/24/19 03/25/19 03/26/19 06:59 06:59 06:59 Intake Total 200 1905 Output Total 500 1325 Balance -300 580 Result Diagrams: 03/21/19 05:07 03/25/19 04:48 Additional Labs: Accuchecks 03/25/19 03/25/19 03/24/19 06:41 00:16 19:05 POC Glucose 108 127 H 95 03/24/19 12:08 POC Glucose 128 H Hospitalist ROS - Medication Medications: Active Medications Generic Name Dose Route Start Last Admin Trade Name Liv PRN Reason Stop Dose Admin Aspirin 81 mg 03/23/19 09:00 03/25/19 08:28 Ecotrin PO 81 mg DAILY DONALD Administration Enoxaparin Sodium 40 mg 03/17/19 09:00 03/25/19 08:28 Lovenox SC 40 mg 0900 DONALD Administration Furosemide 40 mg 03/23/19 09:00 03/25/19 08:28 Lasix PO 40 mg DAILY DONALD Administration Levetiracetam 500 mg/ Device 100 mls @ 200 mls/hr 03/16/19 21:00 03/25/19 08: 29 IVPB 100 mls BID DONALD Administration Meropenem 1 gm/ Device 50 mls @ 100 mls/hr 03/19/19 11:00 03/25/19 02:02 IVPB 50 mls 0300,1100,1900 DONALD Administration Potassium Chloride 40 meq/ 270 mls @ 135 mls/hr 03/21/19 19:09 03/21/19 19:49 Sodium Chloride IVPB 270 mls ASDIR PRN Administration FOR SERUM K+ 2.5 - 3.5 Magnesium Sulfate 1 gm/ Sodium 102 mls @ 102 mls/hr 03/21/19 19:09 03/22/19 05:17 Chloride IV 102 mls PRN PRN Administration MAG LEVEL 1.4 - 2.0 Potassium Phosphate 9 mmol/ 103 mls @ 25.75 mls/hr 03/21/19 19:09 03/23/19 09 :36 Sodium Chloride IVPB 103 mls ASDIR PRN Administration Phosphate 1.0-1.8 Labetalol HCl 20 mg 03/16/19 12:47 03/20/19 01:04 Normodyne SLOW IVP 20 mg Q4H PRN Administration SBP >= 180 Levothyroxine Sodium 112 mcg 03/18/19 21:00 03/24/19 20:34 Synthroid PO 112 mcg HS DONALD Administration Levothyroxine Sodium 25 mcg 03/18/19 21:00 03/24/19 20:34 Synthroid PO 25 mcg HS DONALD Administration Loratadine 10 mg 03/23/19 09:00 03/25/19 08:30 Claritin PO 10 mg DAILY DONALD Administration Magnesium Oxide 400 mg 03/21/19 19:09 03/23/19 04:10 Magnesium Oxide PO 400 mg BIDPRN PRN Administration FOR SERUM MAG 1.4 - 2.0 Miscellaneous Medication 1 pkt 03/21/19 19:09 03/21/19 20:13 Phos-Nak PO 1 pkt TIDPRN PRN Administration FOR PHOS LEVEL 1.0 - 1.8 Pantoprazole Sodium 40 mg 03/17/19 09:00 03/25/19 08:30 Protonix IVP 40 mg DAILY DONALD Administration Potassium Chloride 40 meq 03/21/19 19:09 03/23/19 04:09 Klor-Con PER TUBE 40 meq ASDIR PRN Administration FOR SERUM K+ 2.5-3.5 Sodium Chloride 10 ml 03/18/19 09:00 03/25/19 08:30 Flush - Normal Saline IVF 10 ml Q12HR DONALD Administration - Exam Eye: PERRL, anicteric sclera Heart: RRR, no murmur, no gallops, no rubs, normal peripheral pulses Respiratory: rales (Bilaterally) Gastrointestinal: soft, non-tender, non-distended, normal bowel sounds, no palpable masses, no hepatomegaly Extremities: no cyanosis, no clubbing, no edema Hosp A/P (1) Acute metabolic encephalopathy Code(s): G93.41 - METABOLIC ENCEPHALOPATHY Status: Acute (2) Atrial fibrillation Code(s): I48.91 - UNSPECIFIED ATRIAL FIBRILLATION Status: Chronic (3) Pneumonia Code(s): J18.9 - PNEUMONIA, UNSPECIFIED ORGANISM Status: Chronic (4) UTI (urinary tract infection) Status: Suspected - Plan * Acute metabolic encephalopathy due to UTI and Pneumonia. the improvement seems to have stalled. * UTI due to Enterococcus- continue Meropenem ( he has multiple drug allergies) - He is on Day #7 of therapy. Likely this can be discontinued tomorrow * Dysphagia- continue with DHT feeding - Speech therapy to re-evaluate today- hopefully the DHT can be discontinued * HTN- blood pressure is stable * AFIB- His heart rate is stable * CAD- stable * Hypothyroidism- clinically euthyroid- continue Levothyroxine * Will need to begin discharge planning. I doubt he can go back home from the hospital, if his mental status does not improve. He may need a short stay in [facility]. * Move out of the ICU
[2019-03-25] MEDS: Levothyroxine Sodium 112 MCG TAB PO SCH (20:46)
[2019-03-25] MEDS: Levothyroxine Sodium 25 MCG TAB PO SCH (20:46)
[2019-03-26] MEDS: MEROPENEM 1 GM/50 ML 1 GM in Premix Bag 1 BAG IVPB SCH ×2 (03:54→13:28)
[2019-03-26 06:39] LABS: ALT (SGPT) 12 U/L (8-55); AST (SGOT) 24 U/L (5-34); Albumin 3.3 g/dL (3.4-4.8); Alkaline Phosphatase 46 U/L (40-110); BUN (Urea Nitrogen) 20 mg/dL (8.4-25.7); Bilirubin, Total 2.6 mg/dL (0.2-1.2); Calc. Creatinine Clearance 54 mL/min (70-130); Calcium 8.5 mg/dL (7.8-10.44); Estimated GFR-MDRD 89; Globulin 2.6 g/dL (2.4-3.5); Glucose 110 mg/dL (83-110); Protein, Total 5.9 g/dL (5.8-8.1)
[2019-03-26 06:49] LABS: Anion Gap 10 mmol/L (10-20); Carbon Dioxide 37 mmol/L (23-31); Chloride 97 mmol/L (98-107); Potassium 3.2 mmol/L (3.5-5.1); Sodium 141 mmol/L (136-145)
[2019-03-26] MEDS ORDERED: Potassium Chloride 20 MEQ TAB PER TUBE SCH (08:30)
--- NOTE | 2019-03-26 08:42 | PRG ---
DATE OF SERVICE: 03/26/2019 SUBJECTIVE: Mr. Koenig is sleeping, when I tried to arouse and he falls right back to sleep. OBJECTIVE: VITAL SIGNS: Temperature 97.8, pulse 84, respirations 18, O2 saturation 100%, and blood pressure 144/76. GENERAL: He appears in no distress. HEENT: Clear. NECK: No adenopathy or JVD. LUNGS: Clear to auscultation. CARDIAC: S1 and S2. Regular. ABDOMEN: Soft. EXTREMITIES: No edema. LABORATORY DATA: Sodium 141, potassium 3.2, chloride 97, CO2 of 37, BUN 20, creatinine 0.8, glucose 110, total bilirubin is 2.6, and albumin 3.3. ASSESSMENT: The patient is currently on antibiotics for enterococcus at least seven days. RECOMMENDATION: 1. I will cycle him over to oral antibiotics. This was sensitive to everything, so I assume Augmentin will work just fine. 2. He probably needs to be in a detention as I do not see his functional level improved beyond what we see right now. Job ID: [id number]
[2019-03-26] MEDS: Furosemide 20 MG TAB PO SCH (09:34)
[2019-03-26] MEDS: Enoxaparin Sodium 40 MG/0.4 ML SYRINGE SC SCH (09:35)
[2019-03-26] MEDS: Aspirin 81 mg Enteric Coated Tablet PO SCH (09:35)
[2019-03-26] MEDS: Loratadine 10 MG TAB PO SCH (09:35)
[2019-03-26] MEDS: Pantoprazole 40 MG VIAL IVP SCH ×2 (10:30→16:48)
--- NOTE | 2019-03-26 15:12 | RAD ---
Modified Barium Swallow CLINICAL HISTORY: Dysphagia, oropharyngeal phase; feeding difficulties FINDINGS: The examination is performed under real-time fluoroscopy under guidance of the speech ther apy department. 2.5 minutes; 0.914 Gy per centimeter square There were episodes of tracheal aspiration or penetration with thin barium liquids, barium impregnat ed nectar and barium impregnated honey. Prominent amounts of pooling are seen within the vallecula and piriform sinuses. There was no episode of tracheal aspiration or penetration with barium impregna eliezer pudding. IMPRESSION: Episodes of tracheal aspiration or penetration with thin barium liquids, barium impregnat ed nectar and barium impregnated honey. No episodes of tracheal aspiration or penetration with barium impregnated pudding. Reference speech pathology report for further details.
[2019-03-26] MEDS ORDERED: Potassium Chloride 20 MEQ in Premix Bag 1 BAG IVPB SCH (15:30)
--- NOTE | 2019-03-26 17:35 | PDOC.HOSPP ---
- Subjective Encounter Date: 03/26/19 Encounter Time: 17:32 Subjective: Mr. Koenig was seen today in follow-up of encephalopathy, UTI and pneumonia. He does not have any complaints. His mental status has improved, but he still has some degree of confusion. - Objective Vital Signs & Weight: Vital Signs (12 hours) Temp Pulse Resp BP Pulse Ox 03/26/19 08:00 100 03/26/19 07:13 97.8 F 84 18 144/76 H 100 Weight Admit Weight 141 lb 8.588 oz Weight 130 lb 3 oz Most Recent Monitor Data Heart Rate from ECG 96 NIBP 126/75 NIBP BP-Mean 92 Respiration from ECG 16 SpO2 100 I&O: 03/25/19 03/26/19 03/27/19 06:59 06:59 06:59 Intake Total 1905 1150 90 Output Total 1325 1700 Balance 580 -550 90 Result Diagrams: 03/21/19 05:07 03/26/19 06:00 Additional Labs: Accuchecks 03/26/19 03/26/19 03/26/19 11:59 05:17 00:51 POC Glucose 116 H 114 H 112 H 03/25/19 18:20 POC Glucose 108 Hospitalist ROS - Medication Medications: Active Medications Generic Name Dose Route Start Last Admin Trade Name Freq PRN Reason Stop Dose Admin Aspirin 81 mg 03/23/19 09:00 03/26/19 09:35 Ecotrin PO 81 mg DAILY DONALD Administration Enoxaparin Sodium 40 mg 03/17/19 09:00 03/26/19 09:35 Lovenox SC 40 mg 0900 DONALD Administration Furosemide 40 mg 03/23/19 09:00 03/26/19 09:34 Lasix PO 40 mg DAILY DONALD Administration Levetiracetam 500 mg/ Device 100 mls @ 200 mls/hr 03/16/19 21:00 03/26/19 09: 35 IVPB 100 mls BID DONALD Administration Meropenem 1 gm/ Device 50 mls @ 100 mls/hr 03/19/19 11:00 03/26/19 13:28 IVPB 50 mls 0300,1100,1900 DONALD Administration Potassium Chloride 40 meq/ 270 mls @ 135 mls/hr 03/21/19 19:09 03/21/19 19:49 Sodium Chloride IVPB 270 mls ASDIR PRN Administration FOR SERUM K+ 2.5 - 3.5 Magnesium Sulfate 1 gm/ Sodium 102 mls @ 102 mls/hr 03/21/19 19:09 03/22/19 05:17 Chloride IV 102 mls PRN PRN Administration MAG LEVEL 1.4 - 2.0 Potassium Phosphate 9 mmol/ 103 mls @ 25.75 mls/hr 03/21/19 19:09 03/23/19 09 :36 Sodium Chloride IVPB 103 mls ASDIR PRN Administration Phosphate 1.0-1.8 Labetalol HCl 20 mg 03/16/19 12:47 03/20/19 01:04 Normodyne SLOW IVP 20 mg Q4H PRN Administration SBP >= 180 Levothyroxine Sodium 112 mcg 03/18/19 21:00 03/25/19 20:46 Synthroid PO 112 mcg HS DONALD Administration Levothyroxine Sodium 25 mcg 03/18/19 21:00 03/25/19 20:46 Synthroid PO 25 mcg HS DONALD Administration Loratadine 10 mg 03/23/19 09:00 03/26/19 09:35 Claritin PO 10 mg DAILY DONALD Administration Magnesium Oxide 400 mg 03/21/19 19:09 03/23/19 04:10 Magnesium Oxide PO 400 mg BIDPRN PRN Administration FOR SERUM MAG 1.4 - 2.0 Miscellaneous Medication 1 pkt 03/21/19 19:09 03/21/19 20:13 Phos-Nak PO 1 pkt TIDPRN PRN Administration FOR PHOS LEVEL 1.0 - 1.8 Pantoprazole Sodium 40 mg 03/26/19 09:00 03/26/19 10:30 Protonix IVP 40 mg DAILY DONALD Administration Potassium Chloride 40 meq 03/21/19 19:09 03/23/19 04:09 Klor-Con PER TUBE 40 meq ASDIR PRN Administration FOR SERUM K+ 2.5-3.5 Sodium Chloride 10 ml 03/18/19 09:00 03/26/19 09:41 Flush - Normal Saline IVF 10 ml Q12HR DONALD Administration - Exam Eye: PERRL Heart: RRR, no murmur, no gallops, no rubs, normal peripheral pulses Respiratory: CTAB, no wheezes, no rales, no ronchi, normal chest expansion Gastrointestinal: soft, non-tender, non-distended, normal bowel sounds, no palpable masses, no hepatomegaly Extremities: no cyanosis, no clubbing, no edema Hosp A/P (1) Acute metabolic encephalopathy Code(s): G93.41 - METABOLIC ENCEPHALOPATHY Status: Acute (2) Atrial fibrillation Code(s): I48.91 - UNSPECIFIED ATRIAL FIBRILLATION Status: Chronic (3) Pneumonia Code(s): J18.9 - PNEUMONIA, UNSPECIFIED ORGANISM Status: Chronic (4) UTI (urinary tract infection) Status: Suspected - Plan * Acute metabolic encephalopathy due to UTI and Pneumonia. I suspect he may be close to his baseline- will need to discuss with family * UTI due to Enterococcus- continue Meropenem ( he has multiple drug allergies) - will discontinue antibiotics * Dysphagia- continue with DHT feeding - modified barium study was noted, and discussed with the Speech Therapist- he is still at risk for aspiration with most food consistencies * HTN- blood pressure is stable * AFIB- His heart rate is stable * CAD- stable * Hypothyroidism- clinically euthyroid- continue Levothyroxine
[2019-03-26] MEDS: Levothyroxine Sodium 25 MCG TAB PO SCH (21:43)
[2019-03-26] MEDS: Levothyroxine Sodium 112 MCG TAB PO SCH (21:43)
[2019-03-27] MEDS ORDERED: Loratadine 10 MG TAB ONE (07:34)
[2019-03-27] MEDS ORDERED: Aspirin 325 mg Enteric Coated Tablet ONE (07:35)
[2019-03-27] MEDS ORDERED: Furosemide 40 MG TAB ONE (07:35)
[2019-03-27] MEDS ORDERED: levETIRAcetam 500 MG TAB ONE (07:36)
[2019-03-27] MEDS: Pantoprazole 40 MG VIAL IVP SCH (08:00)
[2019-03-27] MEDS: Loratadine 10 MG TAB PO SCH (08:00)
[2019-03-27] MEDS: Aspirin 81 mg Enteric Coated Tablet PO SCH (08:00)
[2019-03-27] MEDS: Enoxaparin Sodium 40 MG/0.4 ML SYRINGE SC SCH (08:00)
[2019-03-27] MEDS: Furosemide 20 MG TAB PO SCH (08:00)
--- NOTE | 2019-03-27 15:44 | PDOC.HOSPP ---
- Subjective Encounter Date: 03/27/19 Encounter Time: 15:43 Subjective: Mr. Koenig was seen today in follow-up of UTI , Pneumonia and encephalopathy. He does not have any complaints. - Objective Vital Signs & Weight: Weight Admit Weight 141 lb 8.588 oz Weight 130 lb 3 oz Most Recent Monitor Data Heart Rate from ECG 96 NIBP 126/75 NIBP BP-Mean 92 Respiration from ECG 16 SpO2 100 I&O: 03/26/19 03/27/19 03/28/19 06:59 06:59 06:59 Intake Total 1150 1230 Output Total 1700 600 Balance -550 630 Result Diagrams: 03/21/19 05:07 03/26/19 06:00 Additional Labs: Accuchecks 03/27/19 03/26/19 04:41 20:13 POC Glucose 110 112 H Hospitalist ROS - Medication Medications: Active Medications Generic Name Dose Route Start Last Admin Trade Name Freq PRN Reason Stop Dose Admin Aspirin 81 mg 03/23/19 09:00 03/27/19 08:00 Ecotrin PO 81 mg DAILY DONALD Administration Enoxaparin Sodium 40 mg 03/17/19 09:00 03/27/19 08:00 Lovenox SC 40 mg 0900 DONALD Administration Furosemide 40 mg 03/23/19 09:00 03/27/19 08:00 Lasix PO 40 mg DAILY DONALD Administration Levetiracetam 500 mg/ Device 100 mls @ 200 mls/hr 03/16/19 21:00 03/27/19 08: 00 IVPB 100 mls BID DONALD Administration Labetalol HCl 20 mg 03/16/19 12:47 03/20/19 01:04 Normodyne SLOW IVP 20 mg Q4H PRN Administration SBP >= 180 Levothyroxine Sodium 112 mcg 03/18/19 21:00 03/26/19 21:43 Synthroid PO 112 mcg HS DONALD Administration Levothyroxine Sodium 25 mcg 03/18/19 21:00 03/26/19 21:43 Synthroid PO 25 mcg HS DONALD Administration Loratadine 10 mg 03/23/19 09:00 03/27/19 08:00 Claritin PO 10 mg DAILY DONALD Administration Pantoprazole Sodium 40 mg 03/26/19 09:00 03/27/19 08:00 Protonix IVP 40 mg DAILY DONALD Administration Sodium Chloride 10 ml 03/18/19 09:00 03/27/19 08:00 Flush - Normal Saline IVF 10 ml Q12HR DONALD Administration - Exam Eye: PERRL Heart: RRR, no murmur, no gallops, no rubs, normal peripheral pulses Respiratory: CTAB, no wheezes, no rales, no ronchi, normal chest expansion Gastrointestinal: soft, non-tender, non-distended, normal bowel sounds, no palpable masses, no hepatomegaly Extremities: no cyanosis Hosp A/P (1) Acute metabolic encephalopathy Code(s): G93.41 - METABOLIC ENCEPHALOPATHY Status: Acute (2) Atrial fibrillation Code(s): I48.91 - UNSPECIFIED ATRIAL FIBRILLATION Status: Chronic (3) Pneumonia Code(s): J18.9 - PNEUMONIA, UNSPECIFIED ORGANISM Status: Chronic (4) UTI (urinary tract infection) Status: Suspected - Plan * Acute metabolic encephalopathy due to UTI and Pneumonia. He continues to have some mild confusion. * Dysphagia- discussed with speech therapist- he is at risk for aspiration * I spoke with his son yesterday to update him on his father's condition. His dysphagia symptoms and dementia. He will have to think over the options and will be back later today to discuss. He does not feel his father will do well in a nursing facility, but is realistic about the possibility. * HTN- blood pressure is stable * AFIB- His heart rate is stable * CAD- stable * Hypothyroidism- clinically euthyroid- continue Levothyroxine
[2019-03-27 16:16] LABS: ALT (SGPT) 17 U/L (8-55); AST (SGOT) 26 U/L (5-34); Albumin 3.6 g/dL (3.4-4.8); Alkaline Phosphatase 48 U/L (40-110); BUN (Urea Nitrogen) 24 mg/dL (8.4-25.7); Bilirubin, Total 3.1 mg/dL (0.2-1.2); Calc. Creatinine Clearance 51 mL/min (70-130); Chloride 96 mmol/L (98-107); Estimated GFR-MDRD 84; Globulin 2.8 g/dL (2.4-3.5); Glucose 95 mg/dL (83-110); Potassium 3.6 mmol/L (3.5-5.1); Protein, Total 6.4 g/dL (5.8-8.1); Sodium 141 mmol/L (136-145)
[2019-03-27 16:17] LABS: Carbon Dioxide 37 mmol/L (23-31)
[2019-03-27 16:18] LABS: Anion Gap 12 mmol/L (10-20)
[2019-03-27] MEDS: Levothyroxine Sodium 112 MCG TAB PO SCH (20:36)
[2019-03-27] MEDS: Levothyroxine Sodium 25 MCG TAB PO SCH (20:36)
[2019-03-28 06:28] LABS: ALT (SGPT) 14 U/L (8-55); AST (SGOT) 25 U/L (5-34); Albumin 3.3 g/dL (3.4-4.8); Alkaline Phosphatase 53 U/L (40-110); Anion Gap 12 mmol/L (10-20); BUN (Urea Nitrogen) 27 mg/dL (8.4-25.7); Calc. Creatinine Clearance 49 mL/min (70-130); Calcium 9.4 mg/dL (7.8-10.44); Carbon Dioxide 33 mmol/L (23-31); Chloride 98 mmol/L (98-107); Estimated GFR-MDRD 87; Globulin 2.8 g/dL (2.4-3.5); Glucose 120 mg/dL (83-110); Potassium 3.9 mmol/L (3.5-5.1); Protein, Total 6.1 g/dL (5.8-8.1); Sodium 139 mmol/L (136-145)
[2019-03-28] MEDS: Enoxaparin Sodium 40 MG/0.4 ML SYRINGE SC SCH (07:39)
[2019-03-28] MEDS: Furosemide 20 MG TAB PO SCH (07:40)
[2019-03-28] MEDS: Loratadine 10 MG TAB PO SCH (07:40)
[2019-03-28] MEDS: Aspirin 81 mg Enteric Coated Tablet PO SCH (07:40)
[2019-03-28] MEDS: Pantoprazole 40 MG VIAL IVP SCH (07:40)
--- NOTE | 2019-03-28 14:57 | PDOC.HOSPP ---
- Subjective Encounter Date: 03/28/19 Encounter Time: 14:54 Subjective: Mr. Koenig was seen today in follow-up of encephalopathy and dysphagia. He does not have any new complaints. He was seen while the speech therapist was performing her evaluation. He had evidence of coughing and some gurgling and need to clear his throat after he was given the pudding. - Objective Vital Signs & Weight: Vital Signs (12 hours) Temp Pulse Resp BP Pulse Ox 03/28/19 08:00 97.7 F 85 18 121/76 95 Weight Admit Weight 141 lb 8.588 oz Weight 120 lb 9 oz Most Recent Monitor Data Heart Rate from ECG 96 NIBP 126/75 NIBP BP-Mean 92 Respiration from ECG 16 SpO2 100 I&O: 03/27/19 03/28/19 03/29/19 06:59 06:59 06:59 Intake Total 1230 1350 Output Total 600 400 Balance 630 950 Result Diagrams: 03/21/19 05:07 03/28/19 05:30 Additional Labs: Accuchecks 03/28/19 03/28/19 03/28/19 11:42 06:08 00:44 POC Glucose 106 128 H 116 H 03/27/19 03/27/19 03/27/19 19:49 16:21 12:00 POC Glucose 104 101 110 Hospitalist ROS - Medication Medications: Active Medications Generic Name Dose Route Start Last Admin Trade Name Freq PRN Reason Stop Dose Admin Aspirin 81 mg 03/23/19 09:00 03/28/19 07:40 Ecotrin PO 81 mg DAILY DONALD Administration Enoxaparin Sodium 40 mg 03/17/19 09:00 03/28/19 07:39 Lovenox SC 40 mg 09 DONALD Administration Furosemide 40 mg 03/23/19 09:00 03/28/19 07:40 Lasix PO 40 mg DAILY DONALD Administration Levetiracetam 500 mg/ Device 100 mls @ 200 mls/hr 03/16/19 21:00 03/28/19 07: 36 IVPB 100 mls BID DONALD Administration Labetalol HCl 20 mg 03/16/19 12:47 03/20/19 01:04 Normodyne SLOW IVP 20 mg Q4H PRN Administration SBP >= 180 Levothyroxine Sodium 112 mcg 03/18/19 21:00 03/27/19 20:36 Synthroid PO 112 mcg HS DONALD Administration Levothyroxine Sodium 25 mcg 03/18/19 21:00 03/27/19 20:36 Synthroid PO 25 mcg HS DONALD Administration Loratadine 10 mg 03/23/19 09:00 03/28/19 07:40 Claritin PO 10 mg DAILY DONALD Administration Pantoprazole Sodium 40 mg 03/26/19 09:00 03/28/19 07:40 Protonix IVP 40 mg DAILY DONALD Administration Sodium Chloride 10 ml 03/18/19 09:00 03/28/19 07:41 Flush - Normal Saline IVF 10 ml Q12HR DONALD Administration - Exam Eye: PERRL Heart: RRR, no murmur, no gallops, no rubs, normal peripheral pulses Respiratory: CTAB (+ rhonchi) Gastrointestinal: soft, non-tender, non-distended, normal bowel sounds, no palpable masses, no hepatomegaly Extremities: no cyanosis, no clubbing, no edema Hosp A/P (1) Acute metabolic encephalopathy Code(s): G93.41 - METABOLIC ENCEPHALOPATHY Status: Acute (2) Atrial fibrillation Code(s): I48.91 - UNSPECIFIED ATRIAL FIBRILLATION Status: Chronic (3) Pneumonia Code(s): J18.9 - PNEUMONIA, UNSPECIFIED ORGANISM Status: Chronic (4) UTI (urinary tract infection) Status: Suspected - Plan * Acute metabolic encephalopathy- it has improved some, but I suspect he is at his baseline * Dysphagia- he was re-evaluated by Speech Therapy and he was found to continue to have difficulty with swallowing. I discussed this with his son, and he voiced understanding. He would either need to be placed on a diet with risk or have a PEG tube placed. His son states he will need to think about it, and discuss these options with the patient and will let the team know. * HTN- blood pressure is stable * AFIB- His heart rate is stable * CAD- stable * Discharge plans are in progress
[2019-03-28] MEDS: Levothyroxine Sodium 112 MCG TAB PO SCH (21:13)
[2019-03-28] MEDS: Levothyroxine Sodium 25 MCG TAB PO SCH (21:13)
[2019-03-29 06:34] LABS: ALT (SGPT) 14 U/L (8-55); AST (SGOT) 24 U/L (5-34); Albumin 3.4 g/dL (3.4-4.8); Alkaline Phosphatase 49 U/L (40-110); Anion Gap 12 mmol/L (10-20); BUN (Urea Nitrogen) 31 mg/dL (8.4-25.7); Bilirubin, Total 2.8 mg/dL (0.2-1.2); Calc. Creatinine Clearance 45 mL/min (70-130); Carbon Dioxide 34 mmol/L (23-31); Chloride 99 mmol/L (98-107); Estimated GFR-MDRD 79; Globulin 2.7 g/dL (2.4-3.5); Glucose 125 mg/dL (83-110); Potassium 3.9 mmol/L (3.5-5.1); Protein, Total 6.1 g/dL (5.8-8.1); Sodium 141 mmol/L (136-145)
[2019-03-29] MEDS: Loratadine 10 MG TAB PO SCH (07:39)
[2019-03-29] MEDS: Furosemide 20 MG TAB PO SCH (07:39)
[2019-03-29] MEDS: Enoxaparin Sodium 40 MG/0.4 ML SYRINGE SC SCH (07:40)
[2019-03-29] MEDS: Pantoprazole 40 MG VIAL IVP SCH (07:40)
[2019-03-29] MEDS: Aspirin 81 mg Enteric Coated Tablet PO SCH (07:41)
--- NOTE | 2019-03-29 09:20 | PRG ---
DATE OF SERVICE: 03/29/2019 SUBJECTIVE: The patient will wake up. He does not know my name. He does not know where he is. He confabulates most of his answers, but he actually looks good compared to what I have seen in the last several days. OBJECTIVE: VITAL SIGNS: Temperature 97.7, pulse 88, respirations 18, O2 saturation 95% on room air, blood pressure 93/56. HEENT: Unremarkable. NECK: No JVD. CHEST: Clear anteriorly. CARDIAC: S1 and S2. Regular. ABDOMEN: Soft. EXTREMITIES: No edema. LABORATORY DATA: Sodium 141, potassium 3.9, chloride 99, CO2 of 34, BUN 31, creatinine 0.9, glucose 125. ASSESSMENT: 1. Enterococcal urinary tract infection. 2. Profound dementia. PLAN: His antibiotics have been stopped. Main issue now is placement. No further Pulmonary recommendations. We will sign off. Job ID: [id number]
--- NOTE | 2019-03-29 13:07 | PDOC.HOSPP ---
- Subjective Encounter Date: 03/29/19 Encounter Time: 12:10 Subjective: Comfortable. Expresses no complaint. - Objective Vital Signs & Weight: Vital Signs (12 hours) Temp Pulse Resp BP Pulse Ox 03/29/19 08:00 97.7 F 88 18 93/56 L 95 03/29/19 05:21 93 L Weight Admit Weight 141 lb 8.588 oz Weight 120 lb 9 oz Most Recent Monitor Data Heart Rate from ECG 96 NIBP 126/75 NIBP BP-Mean 92 Respiration from ECG 16 SpO2 100 I&O: 03/28/19 03/29/19 03/30/19 06:59 06:59 06:59 Intake Total 1350 820 Output Total 400 570 Balance 950 250 Result Diagrams: 03/21/19 05:07 03/29/19 05:44 Additional Labs: Accuchecks 03/29/19 03/29/19 03/28/19 08:42 06:19 23:54 POC Glucose 114 H 132 H 107 03/28/19 18:07 POC Glucose 108 Hospitalist ROS - Medication Medications: Active Medications Generic Name Dose Route Start Last Admin Trade Name Freq PRN Reason Stop Dose Admin Aspirin 81 mg 03/23/19 09:00 03/29/19 07:41 Ecotrin PO 81 mg DAILY DONALD Administration Enoxaparin Sodium 40 mg 03/17/19 09:00 03/29/19 07:40 Lovenox SC 40 mg 0900 DONALD Administration Furosemide 40 mg 03/23/19 09:00 03/29/19 07:39 Lasix PO 40 mg DAILY DONALD Administration Levetiracetam 500 mg/ Device 100 mls @ 200 mls/hr 03/16/19 21:00 03/29/19 07: 39 IVPB 100 mls BID DONALD Administration Labetalol HCl 20 mg 03/16/19 12:47 03/20/19 01:04 Normodyne SLOW IVP 20 mg Q4H PRN Administration SBP >= 180 Levothyroxine Sodium 112 mcg 03/18/19 21:00 03/28/19 21:13 Synthroid PO 112 mcg HS DONALD Administration Levothyroxine Sodium 25 mcg 03/18/19 21:00 03/28/19 21:13 Synthroid PO 25 mcg HS DONALD Administration Loratadine 10 mg 03/23/19 09:00 03/29/19 07:39 Claritin PO 10 mg DAILY DONALD Administration Pantoprazole Sodium 40 mg 03/26/19 09:00 03/29/19 07:40 Protonix IVP 40 mg DAILY DONALD Administration Sodium Chloride 10 ml 03/18/19 09:00 03/29/19 07:40 Flush - Normal Saline IVF 10 ml Q12HR DONALD Administration - Exam General Appearance: NAD, awake alert Neck: no JVD Heart: RRR Respiratory: CTAB Gastrointestinal: soft Extremities: no edema Neurological: no weakness Hosp A/P (1) Dysphagia Code(s): R13.10 - DYSPHAGIA, UNSPECIFIED Status: Acute Plan: For GTube placement. (2) Pneumonia Code(s): J18.9 - PNEUMONIA, UNSPECIFIED ORGANISM Status: Chronic Plan: Due to above.. (3) Acute metabolic encephalopathy Code(s): G93.41 - METABOLIC ENCEPHALOPATHY Status: Acute (4) Atrial fibrillation Code(s): I48.91 - UNSPECIFIED ATRIAL FIBRILLATION Status: Chronic Plan: Rate controlled.. - Plan For Gtube placement. Continue current therapy..
--- NOTE | 2019-03-29 13:20 | PDOC.HOSPP ---
- Subjective Encounter Date: 03/29/19 Encounter Time: 12:35 Subjective: Abdominal pain.. - Objective Vital Signs & Weight: Vital Signs (12 hours) Temp Pulse Resp BP Pulse Ox 03/29/19 08:00 97.7 F 88 18 93/56 L 95 03/29/19 05:21 93 L Weight Admit Weight 141 lb 8.588 oz Weight 120 lb 9 oz Most Recent Monitor Data Heart Rate from ECG 96 NIBP 126/75 NIBP BP-Mean 92 Respiration from ECG 16 SpO2 100 I&O: 03/28/19 03/29/19 03/30/19 06:59 06:59 06:59 Intake Total 1350 820 Output Total 400 570 Balance 950 250 Result Diagrams: 03/21/19 05:07 03/29/19 05:44 Additional Labs: Accuchecks 03/29/19 03/29/19 03/28/19 08:42 06:19 23:54 POC Glucose 114 H 132 H 107 03/28/19 18:07 POC Glucose 108 Hospitalist ROS - Medication Medications: Active Medications Generic Name Dose Route Start Last Admin Trade Name Freq PRN Reason Stop Dose Admin Aspirin 81 mg 03/23/19 09:00 03/29/19 07:41 Ecotrin PO 81 mg DAILY DONALD Administration Enoxaparin Sodium 40 mg 03/17/19 09:00 03/29/19 07:40 Lovenox SC 40 mg 0900 DONALD Administration Furosemide 40 mg 03/23/19 09:00 03/29/19 07:39 Lasix PO 40 mg DAILY DONALD Administration Levetiracetam 500 mg/ Device 100 mls @ 200 mls/hr 03/16/19 21:00 03/29/19 07: 39 IVPB 100 mls BID DONALD Administration Labetalol HCl 20 mg 03/16/19 12:47 03/20/19 01:04 Normodyne SLOW IVP 20 mg Q4H PRN Administration SBP >= 180 Levothyroxine Sodium 112 mcg 03/18/19 21:00 03/28/19 21:13 Synthroid PO 112 mcg HS DONALD Administration Levothyroxine Sodium 25 mcg 03/18/19 21:00 03/28/19 21:13 Synthroid PO 25 mcg HS DONALD Administration Loratadine 10 mg 03/23/19 09:00 03/29/19 07:39 Claritin PO 10 mg DAILY DONALD Administration Pantoprazole Sodium 40 mg 03/26/19 09:00 03/29/19 07:40 Protonix IVP 40 mg DAILY DONALD Administration Sodium Chloride 10 ml 03/18/19 09:00 03/29/19 07:40 Flush - Normal Saline IVF 10 ml Q12HR DONALD Administration - Exam General Appearance: awake alert, ill appearing Neck: no JVD Heart: RRR Respiratory: CTAB Gastrointestinal: soft, tender to palpation Extremities: no edema Neurological: no weakness Psychiatric: A&O x 3 Hosp A/P (1) Dysphagia Code(s): R13.10 - DYSPHAGIA, UNSPECIFIED Status: Acute (2) Pneumonia Code(s): J18.9 - PNEUMONIA, UNSPECIFIED ORGANISM Status: Chronic (3) Acute metabolic encephalopathy Code(s): G93.41 - METABOLIC ENCEPHALOPATHY Status: Acute (4) Atrial fibrillation Code(s): I48.91 - UNSPECIFIED ATRIAL FIBRILLATION Status: Chronic - Plan For Gtube placement. Continue current therapy..
[2019-03-29] MEDS: Levothyroxine Sodium 25 MCG TAB PO SCH (20:01)
[2019-03-29] MEDS: Levothyroxine Sodium 112 MCG TAB PO SCH (20:02)
--- NOTE | 2019-03-29 21:51 | CON ---
DATE OF CONSULTATION: 03/29/2019 CHIEF COMPLAINT: Trouble swallowing. HISTORY OF PRESENT ILLNESS: Mr. Koenig is an 88-year-old man, who was admitted to the hospital on 03/16/2019 following a seizure. He developed respiratory failure and required ICU care. He has subsequently been transferred out to the floor and has had persistent encephalopathy. He has had dysphagia as well and underwent evaluation by Speech Pathology and was noted to be high risk for aspiration with any oral consistencies. GI was consulted to evaluate for gastrostomy placement. The patient currently has a Dobhoff tube in place and is tolerating his tube feeds well. He has no acute complaints. He is oriented to the place and to his name, but clearly has underlying confusion. He is not oriented to the year. His respiratory status is improved. He is being treated for enterococcal UTI and pneumonia. PAST MEDICAL HISTORY: Atrial fibrillation, coronary artery disease, hypertension, history of CT, hypothyroidism, BPH. PAST SURGICAL HISTORY: Coronary stent, ablation for atrial fibrillation, lung decortication following a hemothorax, tonsillectomy. FAMILY HISTORY: Negative for GI malignancy. SOCIAL HISTORY: He did drink a couple of beers and some vodka daily prior to admission. No smoking. No drugs. ALLERGIES: AZITHROMYCIN, CEPHALEXIN, DOXYCYCLINE, LEVOFLOXACIN, PENICILLIN, SULFA ACCORDING TO THE CHART. CURRENT INPATIENT MEDICATIONS: 1. Aspirin. 2. Enoxaparin. 3. Furosemide. 4. Levetiracetam. 5. Loratadine. 6. Pantoprazole. REVIEW OF SYSTEMS: Negative x10 systems reviewed, except as stated in history of present illness. PHYSICAL EXAMINATION: VITAL SIGNS: Temperature 97.7, pulse 88, blood pressure 93/56. GENERAL: He is in no acute distress. He is oriented to his name and to the place, not year and he has underlying confusion with further discussion. HEENT: His eyes have no scleral icterus. Oropharynx is clear without lesions. LYMPH: No cervical or supraclavicular lymphadenopathy. LUNGS: Clear to auscultation bilaterally. HEART: Regular rate and rhythm without murmur. ABDOMEN: Soft, nontender, and nondistended. Bowel sounds are present. No scars over the left upper abdomen. EXTREMITIES: No lower extremity edema. LABORATORY DATA: White blood cell count 9.1, hemoglobin 11.8, platelets 169. INR 1.1. Creatinine 0.9, bilirubin 2.8, AST 24, ALT 14, alkaline phosphatase 49, and albumin 3.4. IMPRESSION: 1. Oropharyngeal dysphagia with high risk for aspiration with any oral consistencies as determined by Speech Pathology. 2. Encephalopathy. 3. Multiple antibiotic allergies. RECOMMENDATIONS: 1. EGD with percutaneous endoscopic gastrostomy tube placement tomorrow. I discussed the risks and benefits of the procedure in detail with the son including the anesthesia risks and aspiration as well as bleeding and infection at the PEG site, perforation of colon or bowel otherwise leading to peritonitis. 2. Preprocedure antibiotics. He has tolerated cefepime it appears during this hospitalization as well as vancomycin. Job ID: [id number]
[2019-03-30 07:07] LABS: ALT (SGPT) 17 U/L (8-55); AST (SGOT) 30 U/L (5-34); Albumin 3.5 g/dL (3.4-4.8); Alkaline Phosphatase 52 U/L (40-110); BUN (Urea Nitrogen) 30 mg/dL (8.4-25.7); Calc. Creatinine Clearance 45 mL/min (70-130); Estimated GFR-MDRD 78; Globulin 2.9 g/dL (2.4-3.5); Glucose 99 mg/dL (83-110); Protein, Total 6.4 g/dL (5.8-8.1)
[2019-03-30 07:16] LABS: Anion Gap 12 mmol/L (10-20); Carbon Dioxide 35 mmol/L (23-31); Chloride 99 mmol/L (98-107); Sodium 142 mmol/L (136-145)
[2019-03-30] MEDS: Pantoprazole 40 MG VIAL IVP SCH (09:36)
[2019-03-30] MEDS ORDERED: PROPOFOL 200 MG/20 ML VIAL ONE (09:47)
[2019-03-30] MEDS ORDERED: PHENYLEPHRINE-NS 100 MCG/ML 10 ML SYRINGE ONE (09:47)
[2019-03-30] MEDS: Enoxaparin Sodium 40 MG/0.4 ML SYRINGE SC SCH ×2 (10:10→20:06)
[2019-03-30] MEDS: Aspirin 81 mg Enteric Coated Tablet PO SCH ×2 (10:10→15:19)
[2019-03-30] MEDS: Loratadine 10 MG TAB PO SCH ×2 (10:11→15:18)
[2019-03-30] MEDS: Furosemide 20 MG TAB PO SCH ×2 (10:11→15:19)
[2019-03-30] MEDS ORDERED: Clindamycin/D5W 900 mg/50 ml Premix Bag ONE (10:27)
--- NOTE | 2019-03-30 12:15 | OP ---
DATE OF PROCEDURE: 03/30/2019 PROCEDURE PERFORMED: Esophagogastroduodenoscopy with percutaneous endoscopic gastrostomy tube placement. PREOPERATIVE DIAGNOSIS: Oropharyngeal dysphagia. DESCRIPTION OF PROCEDURE: Informed consent was obtained from the patient. He was sedated with total intravenous anesthesia. The bite block was placed and the endoscope was advanced easily to the first portion of the duodenum. The esophagus was normal. There was a small hiatal hernia present. The gastric mucosa had mild patchy erythema, but otherwise was unremarkable. The pyloric sphincter was tight. I could get the endoscope through with resistance. There was no mucosal abnormality in this area, however. The scope did pass through to the first portion of the duodenum. The stomach was fully insufflated, and the appropriate site in the left upper quadrant was transilluminated and palpated. The skin was sterilized with chlorhexidine. The patient did receive clindamycin prior to the procedure. The skin was anesthetized with 5 mL of 1% lidocaine. A small skin incision was performed and the catheter was placed through the incision through the abdominal wall into the stomach under direct visualization easily on one attempt. The wire was passed through the catheter and grasped with snare and pulled out through the patient's mouth. The 20-Green[place]ic gastrostomy tube was then placed by the pull-through technique. The internal bumper looked to be in good position by second-look endoscopy. External bumper was placed at 2.5 cm. Triple antibiotic ointment was applied and the site was dressed. The patient tolerated the procedure well without immediate complications. IMPRESSION: 1. Tight pyloric sphincter. The endoscope would pass through. However, if the patient shows signs of gastric outlet obstruction in the future, then we could potentially go back and re-evaluate the site and consider balloon dilation of the pylorus. The pylorus itself however was open and fluid should passed through easily. 2. Small hiatal hernia. 3. Otherwise, normal esophagogastroduodenoscopy. 4. Successful placement of 20-Greenlandic gastrostomy tube. RECOMMENDATION: Start feeds in 8 hours. Job ID: [id number]
--- NOTE | 2019-03-30 12:28 | PDOC.HOSPP ---
- Subjective Encounter Date: 03/30/19 Encounter Time: 10:40 Subjective: Drowsy..sedated. - Objective Vital Signs & Weight: Vital Signs (12 hours) Temp Pulse Resp BP Pulse Ox 03/30/19 07:42 97.9 F 84 16 115/72 96 Weight Admit Weight 141 lb 8.588 oz Weight 120 lb 9 oz Most Recent Monitor Data Heart Rate from ECG 96 NIBP 126/75 NIBP BP-Mean 92 Respiration from ECG 16 SpO2 100 I&O: 03/29/19 03/30/19 03/31/19 06:59 06:59 06:59 Intake Total 820 Output Total 570 Balance 250 Result Diagrams: 03/21/19 05:07 03/30/19 06:25 Additional Labs: Accuchecks 03/30/19 03/29/19 05:49 19:57 POC Glucose 97 93 Hospitalist ROS - Medication Medications: Active Medications Generic Name Dose Route Start Last Admin Trade Name Freq PRN Reason Stop Dose Admin Aspirin 81 mg 03/23/19 09:00 03/30/19 10:10 Ecotrin PO Not Given DAILY DONALD Enoxaparin Sodium 40 mg 03/17/19 09:00 03/30/19 10:10 Lovenox SC Not Given 09 DONALD Furosemide 40 mg 03/23/19 09:00 03/30/19 10:11 Lasix PO Not Given DAILY DONALD Levetiracetam 500 mg/ Device 100 mls @ 200 mls/hr 03/16/19 21:00 03/30/19 09: 35 IVPB 100 mls BID DONALD Administration Labetalol HCl 20 mg 03/16/19 12:47 03/20/19 01:04 Normodyne SLOW IVP 20 mg Q4H PRN Administration SBP >= 180 Levothyroxine Sodium 112 mcg 03/18/19 21:00 03/29/19 20:02 Synthroid PO 112 mcg HS DONALD Administration Levothyroxine Sodium 25 mcg 03/18/19 21:00 03/29/19 20:01 Synthroid PO 25 mcg HS DONALD Administration Loratadine 10 mg 03/23/19 09:00 03/30/19 10:11 Claritin PO Not Given DAILY DONALD Pantoprazole Sodium 40 mg 03/26/19 09:00 03/30/19 09:36 Protonix IVP 40 mg DAILY DONALD Administration Sodium Chloride 10 ml 03/18/19 09:00 03/30/19 09:35 Flush - Normal Saline IVF 10 ml Q12HR DONALD Administration - Exam General Appearance: NAD Neck: no JVD Heart: irregular Respiratory: CTAB Gastrointestinal: soft Extremities: no edema Hosp A/P (1) Dysphagia Code(s): R13.10 - DYSPHAGIA, UNSPECIFIED Status: Acute (2) Pneumonia Code(s): J18.9 - PNEUMONIA, UNSPECIFIED ORGANISM Status: Chronic (3) Acute metabolic encephalopathy Code(s): G93.41 - METABOLIC ENCEPHALOPATHY Status: Acute (4) Atrial fibrillation Code(s): I48.91 - UNSPECIFIED ATRIAL FIBRILLATION Status: Chronic - Plan S/p PEG.. Overall condition better. Continue current therapy. Home soon.
[2019-03-30] MEDS: Levothyroxine Sodium 25 MCG TAB PO SCH (20:05)
[2019-03-30] MEDS: Levothyroxine Sodium 112 MCG TAB PO SCH (20:06)
[2019-03-31 06:03] LABS: ALT (SGPT) 15 U/L (8-55); AST (SGOT) 26 U/L (5-34); Albumin 3.5 g/dL (3.4-4.8); Alkaline Phosphatase 59 U/L (40-110); BUN (Urea Nitrogen) 36 mg/dL (8.4-25.7); Bilirubin, Total 3.2 mg/dL (0.2-1.2); Calc. Creatinine Clearance 39 mL/min (70-130); Calcium 8.9 mg/dL (7.8-10.44); Estimated GFR-MDRD 63; Glucose 122 mg/dL (83-110); Protein, Total 6.5 g/dL (5.8-8.1)
[2019-03-31 06:12] LABS: Anion Gap 14 mmol/L (10-20); Carbon Dioxide 33 mmol/L (23-31); Chloride 100 mmol/L (98-107); Potassium 3.9 mmol/L (3.5-5.1); Sodium 143 mmol/L (136-145)
[2019-03-31] MEDS: Aspirin 81 mg Enteric Coated Tablet PO SCH (08:37)
[2019-03-31] MEDS: Loratadine 10 MG TAB PO SCH (08:37)
[2019-03-31] MEDS: Furosemide 20 MG TAB PO SCH (08:37)
[2019-03-31] MEDS: Pantoprazole 40 MG VIAL IVP SCH (09:29)
[2019-03-31 09:37] LABS: #Eosinphils 0.1 thou/uL (0.0-0.7); #Lymphocytes 0.8 thou/uL (1.20-3.40); #Monocytes 0.7 thou/uL (0.11-0.59); #Neutrophils 5.8 thou/uL (1.40-6.50); %Basophils 0.1 % (0.0-1.0); %Eosinophils 1.6 % (0.0-10.0); %Lymphocytes 11.1 % (21.0-51.0); %Monocytes 9.5 % (0.0-10.0); %Neutrophils 77.7 % (42.0-75.0); Hemoglobin 10.4 g/dL (14.0-18.0); Mean Corpuscular HGB CONC 33.7 g/dL (32.0-36.0); Mean Corpuscular Hemoglobin 33.8 pg (27.0-31.0); Mean Platelet Volume 8.4 fL (7.4-10.4); Platelet Count 231 thou/uL (130-400); RBC Distribution Width 14.2 % (11.5-14.5); Red Blood Cell (RBC) Count 3.09 mill/uL (4.70-6.10); White Blood Cell (WBC) Count 7.5 thou/uL (4.8-10.8)
--- NOTE | 2019-03-31 12:20 | PDOC.HOSPP ---
- Subjective Encounter Date: 03/31/19 Encounter Time: 11:30 Subjective: Comfortable...More confused today. - Objective Vital Signs & Weight: Vital Signs (12 hours) Temp Pulse Resp BP Pulse Ox 03/31/19 08:00 95 03/31/19 07:20 97.5 F L 92 20 115/83 95 Weight Admit Weight 141 lb 8.588 oz Weight 127 lb 4.8 oz Most Recent Monitor Data Heart Rate from ECG 96 NIBP 126/75 NIBP BP-Mean 92 Respiration from ECG 16 SpO2 100 I&O: 03/30/19 03/31/19 04/01/19 06:59 06:59 06:59 Intake Total 990 30 Output Total 550 Balance 440 30 Result Diagrams: 03/31/19 09:16 03/31/19 05:14 Additional Labs: Accuchecks 03/31/19 03/30/19 03/30/19 04:47 20:20 16:24 POC Glucose 135 H 89 87 03/30/19 13:53 POC Glucose 88 Hospitalist ROS - Medication Medications: Active Medications Generic Name Dose Route Start Last Admin Trade Name Freq PRN Reason Stop Dose Admin Aspirin 81 mg 03/23/19 09:00 03/31/19 08:37 Ecotrin PO 81 mg DAILY DONALD Administration Enoxaparin Sodium 40 mg 03/30/19 21:00 03/30/19 20:06 Lovenox SC 40 mg 2100 DONALD Administration Furosemide 40 mg 03/23/19 09:00 03/31/19 08:37 Lasix PO 40 mg DAILY DONALD Administration Levetiracetam 500 mg/ Device 100 mls @ 200 mls/hr 03/16/19 21:00 03/31/19 08: 37 IVPB 100 mls BID DONALD Administration Labetalol HCl 20 mg 03/16/19 12:47 03/20/19 01:04 Normodyne SLOW IVP 20 mg Q4H PRN Administration SBP >= 180 Levothyroxine Sodium 112 mcg 03/18/19 21:00 03/30/19 20:06 Synthroid PO 112 mcg HS DONALD Administration Levothyroxine Sodium 25 mcg 03/18/19 21:00 03/30/19 20:05 Synthroid PO 25 mcg HS DONALD Administration Loratadine 10 mg 03/23/19 09:00 03/31/19 08:37 Claritin PO 10 mg DAILY DONALD Administration Pantoprazole Sodium 40 mg 03/26/19 09:00 03/31/19 09:29 Protonix IVP 40 mg DAILY DONALD Administration Sodium Chloride 10 ml 03/18/19 09:00 03/31/19 09:29 Flush - Normal Saline IVF 10 ml Q12HR DONALD Administration - Exam General Appearance: NAD Neck: no JVD Heart: RRR Respiratory: CTAB Gastrointestinal: soft Extremities: no edema Neurological: no focal deficits Hosp A/P (1) Pneumonia Code(s): J18.9 - PNEUMONIA, UNSPECIFIED ORGANISM Status: Chronic (2) Dysphagia Code(s): R13.10 - DYSPHAGIA, UNSPECIFIED Status: Acute (3) Acute metabolic encephalopathy Code(s): G93.41 - METABOLIC ENCEPHALOPATHY Status: Acute (4) Atrial fibrillation Code(s): I48.91 - UNSPECIFIED ATRIAL FIBRILLATION Status: Chronic - Plan S/p PEG.. Overall condition better. Continue current therapy. Home soon with home health
--- NOTE | 2019-03-31 18:45 | PRG ---
DATE OF SERVICE: 03/31/2019 SUBJECTIVE: Mr. Koenig is tolerating his tube feeds well. OBJECTIVE: His abdomen is soft. He has mild tenderness around the PEG site. The skin appears healthy around the tube. IMPRESSION: Oropharyngeal dysphagia, status post PEG tube placement. RECOMMENDATIONS: 1. Continue tube feeds. Clean the PEG site with soap and water daily. 2. I will sign off. Please call if GI can be of assistance. Job ID: [id number]
[2019-03-31] MEDS: Enoxaparin Sodium 40 MG/0.4 ML SYRINGE SC SCH (20:38)
[2019-03-31] MEDS: Levothyroxine Sodium 112 MCG TAB PO SCH (20:38)
[2019-03-31] MEDS: Levothyroxine Sodium 25 MCG TAB PO SCH (20:38)
[2019-04-01 06:21] LABS: ALT (SGPT) 13 U/L (8-55); AST (SGOT) 21 U/L (5-34); Albumin 3.4 g/dL (3.4-4.8); Alkaline Phosphatase 54 U/L (40-110); Anion Gap 11 mmol/L (10-20); BUN (Urea Nitrogen) 34 mg/dL (8.4-25.7); Bilirubin, Total 2.8 mg/dL (0.2-1.2); Calc. Creatinine Clearance 41 mL/min (70-130); Calcium 8.7 mg/dL (7.8-10.44); Carbon Dioxide 34 mmol/L (23-31); Chloride 102 mmol/L (98-107); Estimated GFR-MDRD 68; Globulin 2.9 g/dL (2.4-3.5); Glucose 116 mg/dL (83-110); Potassium 3.7 mmol/L (3.5-5.1); Protein, Total 6.3 g/dL (5.8-8.1); Sodium 143 mmol/L (136-145)
[2019-04-01] MEDS: Furosemide 20 MG TAB PO SCH (09:06)
[2019-04-01] MEDS: Pantoprazole 40 MG VIAL IVP SCH (09:06)
[2019-04-01] MEDS: Loratadine 10 MG TAB PO SCH (09:06)
[2019-04-01] MEDS: Aspirin 81 mg Enteric Coated Tablet PO SCH (09:07)
[2019-04-01] MEDS: Levothyroxine Sodium 112 MCG TAB PO SCH (21:07)
[2019-04-01] MEDS: Levothyroxine Sodium 25 MCG TAB PO SCH (21:07)
[2019-04-01] MEDS: Enoxaparin Sodium 40 MG/0.4 ML SYRINGE SC SCH (21:13)
--- NOTE | 2019-04-01 23:12 | PDOC.HOSPP ---
- Subjective Encounter Date: 04/01/19 Encounter Time: 16:00 Subjective: The patient is sitting up in bed. He has no complaints. Seems slightly confused. He has PEG tubes going - Objective Vital Signs & Weight: Vital Signs (12 hours) Temp Pulse Resp BP Pulse Ox 04/01/19 20:00 98.0 F 87 18 121/77 97 Weight Admit Weight 141 lb 8.588 oz Weight 124 lb 12.8 oz Most Recent Monitor Data Heart Rate from ECG 96 NIBP 126/75 NIBP BP-Mean 92 Respiration from ECG 16 SpO2 100 I&O: 03/31/19 04/01/19 04/02/19 06:59 06:59 06:59 Intake Total 990 1840 1030 Output Total 550 1150 875 Balance 440 690 155 Result Diagrams: 03/31/19 09:16 04/01/19 05:38 Additional Labs: Accuchecks 04/01/19 04/01/19 04/01/19 20:45 16:59 11:15 POC Glucose 97 131 H 154 H 04/01/19 04:56 POC Glucose 128 H Hospitalist ROS - Review of Systems Constitutional: denies: fever, chills - Medication Medications: Active Medications Generic Name Dose Route Start Last Admin Trade Name Freq PRN Reason Stop Dose Admin Aspirin 81 mg 03/23/19 09:00 04/01/19 09:07 Ecotrin PO 81 mg DAILY DONALD Administration Enoxaparin Sodium 40 mg 03/30/19 21:00 04/01/19 21:13 Lovenox SC 40 mg 2100 DONALD Administration Furosemide 40 mg 03/23/19 09:00 04/01/19 09:06 Lasix PO 40 mg DAILY DONALD Administration Levetiracetam 500 mg/ Device 100 mls @ 200 mls/hr 03/16/19 21:00 04/01/19 21: 21 IVPB 100 mls BID DONALD Administration Labetalol HCl 20 mg 03/16/19 12:47 03/20/19 01:04 Normodyne SLOW IVP 20 mg Q4H PRN Administration SBP >= 180 Levothyroxine Sodium 112 mcg 03/18/19 21:00 04/01/19 21:07 Synthroid PO 112 mcg HS DONALD Administration Levothyroxine Sodium 25 mcg 03/18/19 21:00 04/01/19 21:07 Synthroid PO 25 mcg HS DONALD Administration Loratadine 10 mg 03/23/19 09:00 04/01/19 09:06 Claritin PO 10 mg DAILY DONALD Administration Pantoprazole Sodium 40 mg 03/26/19 09:00 04/01/19 09:06 Protonix IVP 40 mg DAILY DONALD Administration Sodium Chloride 10 ml 03/18/19 09:00 04/01/19 21:08 Flush - Normal Saline IVF 10 ml Q12HR DONALD Administration - Exam General Appearance: NAD, awake alert Eye: PERRL, anicteric sclera ENT: normocephalic atraumatic, no oropharyngeal lesions Neck: supple, symmetric, no JVD Heart: RRR, no murmur, no gallops, no rubs Respiratory: CTAB, no wheezes, no rales, no ronchi Gastrointestinal: soft, non-tender, non-distended, normal bowel sounds Extremities: no cyanosis, no clubbing, no edema Skin: normal turgor, no lesions, no rashes Neurological: no focal deficits Hosp A/P - Plan CT head: normal CTA head: no significant stenosis Chest X ray: no acute disease CTA thorax 03/17: complete consolidation/collapse of bilateral lower lobes with a mass like focal area of inferior-posterior right middle lobe opacity. No PE . Prominent coronary arterial calcification Chest X ray 03/22: cardiomegaly and persistent pleural effusion This is an 88 year old male with history of CAD s/p UT who presented with acute altered mental status, hypoxia and shortness of breath, found to have heart rate in 170 on presentation, s/p intubation and extubation for tonic clonic seizure. Transferred to the floor. He is s/p PEG, pending placement #Acute tonic clonic seizure -s/p intubation and extubation #Metabolic encephalopathy vs from ICU delirium #Malnutrition - unclear etiology, possibly from pneumonia - continue IV keppra po bid. CT head and CTA negative for stroke, MRI brain unable to be done - he is s/p PEG placement. Palliative care on board, needs placement vs home health since unable to take care of nutrition on his own #Acute hypoxic respiratory failure from pneumonia vs acute diastolic [facility] #Lactic acidosis - possibly from seizure vs sepsis - was intubated, then extubated. CTA showed bilateral lower lobe consolidation and mass in RML. Mass per family is old and secondary to scarring from hemothorax drainage - was on vancomycin and cefepime from 03/16 -03/19, then meropenem for > 7 days - continue oral lasix #Enterococcus faecalis UTI - was on cefepime since and switched to meropenem on . 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 Cardiology consulted, no changes in management - troponin downtrended. ECHO showed EF 50-55%, moderate MR, mild to moderate TR , mild AR. - Aspirin 81 mg. Not on coumadin due to thoracic hematoma #BPH - not on meds #Hypothyroidism - continue oral levothyroxine. TSH normal #History of SIADH #Hyponatremia- resolved Dispo: needs placement, goals of care discussion Code status: chemical code + intubation, no CPR
[2019-04-02 07:28] LABS: ALT (SGPT) 12 U/L (8-55); AST (SGOT) 21 U/L (5-34); Albumin 3.4 g/dL (3.4-4.8); Alkaline Phosphatase 55 U/L (40-110); Anion Gap 10 mmol/L (10-20); BUN (Urea Nitrogen) 33 mg/dL (8.4-25.7); Bilirubin, Total 2.2 mg/dL (0.2-1.2); Calc. Creatinine Clearance 44 mL/min (70-130); Carbon Dioxide 36 mmol/L (23-31); Chloride 103 mmol/L (98-107); Estimated GFR-MDRD 74; Globulin 2.9 g/dL (2.4-3.5); Glucose 122 mg/dL (83-110); Potassium 3.8 mmol/L (3.5-5.1); Protein, Total 6.3 g/dL (5.8-8.1); Sodium 145 mmol/L (136-145)
[2019-04-02] MEDS: Aspirin 81 mg Enteric Coated Tablet PO SCH (09:00)
[2019-04-02] MEDS: Furosemide 20 MG TAB PO SCH (09:01)
[2019-04-02] MEDS: Loratadine 10 MG TAB PO SCH (09:02)
[2019-04-02] MEDS: Pantoprazole 40 MG VIAL IVP SCH (09:03)
--- NOTE | 2019-04-02 18:41 | PDOC.HOSPP ---
- Subjective Encounter Date: 04/02/19 Encounter Time: 16:00 Subjective: The patient is doing well, denies complaints. He has no chest pain or shortness of breath. Patient probably needs placement. Patient refusing rehab. Son does not think he can convince his father to go to rehab. Son asking about ortho weight-bearing status. Per ortho, order was placed for weight-bearing status on the with next Xray to be done at the end of March does not think that she can follow instructions for tube feeds. - Objective Vital Signs & Weight: Vital Signs (12 hours) Temp Pulse Resp BP Pulse Ox 04/02/19 08:40 98 04/02/19 08:00 98.0 F 84 16 127/76 98 Weight Admit Weight 141 lb 8.588 oz Weight 123 lb 5 oz Most Recent Monitor Data Heart Rate from ECG 96 NIBP 126/75 NIBP BP-Mean 92 Respiration from ECG 16 SpO2 100 I&O: 04/01/19 04/02/19 04/03/19 06:59 06:59 06:59 Intake Total 1840 1905 60 Output Total 1150 1505 Balance 690 400 60 Result Diagrams: 03/31/19 09:16 04/02/19 05:43 Additional Labs: Accuchecks 04/02/19 04/02/19 04/02/19 17:24 11:37 05:25 POC Glucose 136 H 121 H 121 H 04/01/19 20:45 POC Glucose 97 Hospitalist ROS - Review of Systems Constitutional: denies: fever, chills - Medication Medications: Active Medications Generic Name Dose Route Start Last Admin Trade Name Liv PRN Reason Stop Dose Admin Aspirin 81 mg 03/23/19 09:00 04/02/19 09:00 Ecotrin PO 81 mg DAILY DONALD Administration Enoxaparin Sodium 40 mg 03/30/19 21:00 04/01/19 21:13 Lovenox SC 40 mg 2100 DONALD Administration Furosemide 40 mg 03/23/19 09:00 04/02/19 09:01 Lasix PO 40 mg DAILY DONALD Administration Levetiracetam 500 mg/ Device 100 mls @ 200 mls/hr 03/16/19 21:00 04/02/19 10: 44 IVPB 100 mls BID DONALD Administration Labetalol HCl 20 mg 03/16/19 12:47 03/20/19 01:04 Normodyne SLOW IVP 20 mg Q4H PRN Administration SBP >= 180 Levothyroxine Sodium 112 mcg 03/18/19 21:00 04/01/19 21:07 Synthroid PO 112 mcg HS DONALD Administration Levothyroxine Sodium 25 mcg 03/18/19 21:00 04/01/19 21:07 Synthroid PO 25 mcg HS DONALD Administration Loratadine 10 mg 03/23/19 09:00 04/02/19 09:02 Claritin PO 10 mg DAILY DONALD Administration Pantoprazole Sodium 40 mg 03/26/19 09:00 04/02/19 09:03 Protonix IVP 40 mg DAILY DONALD Administration Sodium Chloride 10 ml 03/18/19 09:00 04/02/19 09:04 Flush - Normal Saline IVF 10 ml Q12HR DONALD Administration - Exam General Appearance: NAD, awake alert Eye: PERRL, anicteric sclera ENT: normocephalic atraumatic, no oropharyngeal lesions, moist mucosa Neck: supple, symmetric, no JVD, no thyromegaly, no lymphadenopathy, no carotid bruit Heart: RRR, no murmur, no gallops, no rubs, normal peripheral pulses Respiratory: CTAB, no wheezes, no rales, no ronchi, normal chest expansion, no tachypnea, normal percussion Gastrointestinal: soft, non-tender, non-distended, normal bowel sounds, no palpable masses, no hepatomegaly, no splenomegaly, no bruit Extremities: no cyanosis, no clubbing, no edema Skin: normal turgor, no lesions, no rashes Neurological: cranial nerve grossly intact, normal sensation to touch, no weakness, no focal deficits, no new deficit Musculoskeletal: normal tone, normal strength, no muscle wasting Psychiatric: normal affect, normal behavior, A&O x 3 Hosp A/P - Plan CT head: normal CTA head: no significant stenosis Chest X ray: no acute disease CTA thorax 03/17: complete consolidation/collapse of bilateral lower lobes with a mass like focal area of inferior-posterior right middle lobe opacity. No PE . Prominent coronary arterial calcification Chest X ray 03/22: cardiomegaly and persistent pleural effusion This is an 88 year old male with history of CAD s/p PA who presented with acute altered mental status, hypoxia and shortness of breath, found to have heart rate in 170 on presentation, s/p intubation and extubation for tonic clonic seizure. Transferred to the floor. He is s/p PEG, pending placement Malnutrition/Dysphagia - barium swallow was negative - PEg tube placed on the . Patient does not want rehab, and son do not want to manage tube feeds at home. Patient wants to eat - will have speech re-evaluate tomorrow. If patient needs tube feeds, nurses to teach family members how to use tube feeds #Acute tonic clonic seizure -s/p intubation and extubation #Metabolic encephalopathy vs from ICU delirium - unclear etiology, possibly from pneumonia - continue IV keppra po bid. CT head and CTA negative for stroke, MRI brain unable to be done since patient couldn't lay still - he is s/p PEG placement. Palliative care on board, needs placement vs home health since unable to take care of nutrition on his own #S/p recent right tibia fracture # Xray shows stable appearance - venous dopplers negative for DVT - per ortho, patient can be weight-bearing. Repeat X rays needed in March #Acute hypoxic respiratory failure from pneumonia vs acute diastolic [facility] - [facility] #Lactic acidosis - possibly from seizure vs sepsis - was intubated, then extubated. CTA showed bilateral lower lobe consolidation and mass in RML. Mass per family is old and secondary to scarring from hemothorax drainage - was on vancomycin and cefepime from 03/16 -03/19, then meropenem for > 7 days - continue oral lasix #Enterococcus faecalis UTI - was on cefepime since and switched to meropenem on . 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 Cardiology consulted, no changes in management - troponin downtrended. ECHO showed EF 50-55%, moderate MR, mild to moderate TR , mild AR. - Aspirin 81 mg. Not on coumadin due to thoracic hematoma #BPH - not on meds #Hypothyroidism - continue oral levothyroxine. TSH normal #History of SIADH #Hyponatremia- resolved Dispo: needs placement, patient refusing rehab. Needs tube feed teaching of family Code status: chemical code + intubation, no CPR
[2019-04-02] MEDS: Enoxaparin Sodium 40 MG/0.4 ML SYRINGE SC SCH (20:29)
[2019-04-02] MEDS: Levothyroxine Sodium 25 MCG TAB PO SCH (20:30)
[2019-04-02] MEDS: Levothyroxine Sodium 112 MCG TAB PO SCH (20:30)
[2019-04-03 05:46] LABS: Hemoglobin 9.4 g/dL (14.0-18.0); Mean Corpuscular HGB CONC 33.3 g/dL (32.0-36.0); Mean Corpuscular Hemoglobin 33.5 pg (27.0-31.0); Mean Platelet Volume 8.2 fL (7.4-10.4); Platelet Count 235 thou/uL (130-400); RBC Distribution Width 14.1 % (11.5-14.5); Red Blood Cell (RBC) Count 2.81 mill/uL (4.70-6.10); White Blood Cell (WBC) Count 3.8 thou/uL (4.8-10.8)
[2019-04-03 06:01] LABS: ALT (SGPT) 12 U/L (8-55); AST (SGOT) 20 U/L (5-34); Albumin 3.3 g/dL (3.4-4.8); Alkaline Phosphatase 52 U/L (40-110); Anion Gap 9 mmol/L (10-20); BUN (Urea Nitrogen) 32 mg/dL (8.4-25.7); Bilirubin, Total 2.2 mg/dL (0.2-1.2); Calc. Creatinine Clearance 46 mL/min (70-130); Calcium 8.9 mg/dL (7.8-10.44); Carbon Dioxide 35 mmol/L (23-31); Chloride 102 mmol/L (98-107); Estimated GFR-MDRD 74; Globulin 3.1 g/dL (2.4-3.5); Glucose 121 mg/dL (83-110); Potassium 3.9 mmol/L (3.5-5.1); Protein, Total 6.4 g/dL (5.8-8.1); Sodium 142 mmol/L (136-145)
[2019-04-03] MEDS: Aspirin 81 mg Enteric Coated Tablet PO SCH (09:05)
[2019-04-03] MEDS: Furosemide 20 MG TAB PO SCH (09:06)
[2019-04-03] MEDS: Loratadine 10 MG TAB PO SCH (09:06)
[2019-04-03] MEDS: Pantoprazole 40 MG VIAL IVP SCH (09:06)
--- NOTE | 2019-04-03 12:29 | PQF ---
SHERON LOPEZ, [facility] [id number] CLINICAL DOCUMENTATION IMPROVEMENT CLARIFICATION FORM: ICD-10 Updated PLEASE DO AN ADDENDUM TO THE PROGRESS NOTE WITH ANY DOCUMENTATION UPDATES OR ADDITIONS AND CARRY THROUGH TO DC SUMMARY. THANK YOU. Date: 04/03/2019 ATTN: DR. Preet HOLLIDAY Please exercise your independent, professional judgment in responding to the clarification form. Clinical indicators are provided on the bottom of this form for your review. Please check appropriate box(s): [ ] Protein Calorie Malnutrition: [ ] Mild [ ] Moderate [X ] Severe [ ] Cachexia [ ] Other diagnosis [ ] Unable to determine In addition, please specify: Present on Admission (POA): [ X] Yes [ ] No [ ] Unable to determine CLINICAL INDICATORS - SIGNS / SYMPTOMS / LABS / RESULTS AND LOCATION IN MR 03/28 CONSULT (RD) -14.8% WEIGHT LOSS SINCE ADMISSION, BMI 17.3, RECOMMEND JEVITY 1.2 FOR TUBE FEEDS. 04/02 PN ([facility]) A/P : MALNUTRITION/DYSPHAGIA -- BARIUM SWALLOW WAS NEGATIVE, PT DOES NOT WANT REHAB, AND SON DO NOT WANT TO MANAGE TUBE FEEDS AT HOME. PT WANTS TO EAT, WILL HAVE SPEECH RE-EVALUATE TOMORROW. IF PT NEEDS TUBE FEEDS , NURSE TO TEACH FAMILY MEMBERS HOW TO USE TUBE FEEDS. RISK: OROPHARYNGEAL DYSPHAGIA W/ HIGH RISK FOR ASPIRATION (PN/[facility]) 03/31 ADVANCED AGE (88) , ALTERED MENTAL STATUS (H&P/MG) 03/16 TREATMENTS: PEG TUBE PLACEMENT 03/30 HAND TRIMMER CONSULT ( 03/28) GI CONSULT (03/29) Moderate Malnutrition (in acute illness) Energy Intake: <75% of estimated energy requirement for > 7 days Weight Loss: 1-2%/1 week; 5%/ 1 month; 7.5%/3 months Other: mild body fat loss; mild muscle mass loss; mild fluid accumulation; Severe Malnutrition (in acute illness) Energy Intake: < 50% of estimated energy requirement for > 5 days Weight Loss: >1-2%/1 week; >5%/1 month; >7.5%/3 months Other: moderate body fat loss; moderate muscle mass loss; moderate- severe fluid accumulation; measurably reduced account development specialist strength Moderate Malnutrition (in chronic illness) Energy Intake: <75% of estimated energy requirement for >1 month Weight Loss: 5%/1 month; 7.5%/3 months; 10%/6 months; 20%/1 year Other: mild body fat loss; mild muscle mass loss; mild fluid accumulation Severe Malnutrition (in chronic illness) Energy Intake: <75% of estimated energy requirement for >1 month Weight Loss: >5%/1 month; >7.5%/3 months; >10%/6 months; >20%/1 year Other: severe body fat loss; severe muscle mass loss; severe fluid accumulation ; measurably reduced account development specialist strength THANK YOU! RAFAELA (This form is maintained as a part of the permanent medical record) 2014 [employer] All Rights Reserved [email or web address] [phone] MTDD
[2019-04-03] MEDS: Enoxaparin Sodium 40 MG/0.4 ML SYRINGE SC SCH (20:19)
[2019-04-03] MEDS: Levothyroxine Sodium 112 MCG TAB PO SCH (20:20)
[2019-04-03] MEDS: Levothyroxine Sodium 25 MCG TAB PO SCH (20:20)
--- NOTE | 2019-04-03 20:23 | PDOC.HOSPP ---
- Subjective Encounter Date: 04/03/19 Encounter Time: 20:21 Subjective: The patient has no complaints. No chest pain or shortness of breath. The patient wants to try eating, speech saw the patient and still recommended tube feeds. Patient agreeable to SNF for the short term. did not understand teaching of tube feedings, son not available to feed patient either - Objective Vital Signs & Weight: Vital Signs (12 hours) Temp Pulse Resp BP Pulse Ox 04/03/19 20:00 98.0 F 85 18 113/71 95 04/03/19 08:45 94 L Weight Admit Weight 141 lb 8.588 oz Weight 129 lb 6 oz Most Recent Monitor Data Heart Rate from ECG 96 NIBP 126/75 NIBP BP-Mean 92 Respiration from ECG 16 SpO2 100 I&O: 04/02/19 04/03/19 04/04/19 06:59 06:59 06:59 Intake Total 1905 1845 1400 Output Total 1505 1275 650 Balance 400 570 750 Result Diagrams: 04/03/19 05:25 04/03/19 05:25 Additional Labs: Accuchecks 04/03/19 04/03/19 04/03/19 16:01 11:15 04:55 POC Glucose 101 127 H 116 H 04/02/19 20:00 POC Glucose 107 Hospitalist ROS - Review of Systems Constitutional: denies: fever, chills - Medication Medications: Active Medications Generic Name Dose Route Start Last Admin Trade Name Freq PRN Reason Stop Dose Admin Aspirin 81 mg 03/23/19 09:00 04/03/19 09:05 Ecotrin PO 81 mg DAILY DONALD Administration Enoxaparin Sodium 40 mg 03/30/19 21:00 04/02/19 20:29 Lovenox SC 40 mg 2100 DONALD Administration Furosemide 40 mg 03/23/19 09:00 04/03/19 09:06 Lasix PO 40 mg DAILY DONALD Administration Levetiracetam 500 mg/ Device 100 mls @ 200 mls/hr 03/16/19 21:00 04/03/19 09: 07 IVPB 100 mls BID DONALD Administration Labetalol HCl 20 mg 03/16/19 12:47 03/20/19 01:04 Normodyne SLOW IVP 20 mg Q4H PRN Administration SBP >= 180 Levothyroxine Sodium 112 mcg 03/18/19 21:00 04/02/19 20:30 Synthroid PO 112 mcg HS DONALD Administration Levothyroxine Sodium 25 mcg 03/18/19 21:00 04/02/19 20:30 Synthroid PO 25 mcg HS DONALD Administration Loratadine 10 mg 03/23/19 09:00 04/03/19 09:06 Claritin PO 10 mg DAILY DONALD Administration Pantoprazole Sodium 40 mg 03/26/19 09:00 04/03/19 09:06 Protonix IVP 40 mg DAILY DONALD Administration Sodium Chloride 10 ml 03/18/19 09:00 04/03/19 09:06 Flush - Normal Saline IVF 10 ml Q12HR DONALD Administration - Exam General Appearance: NAD, awake alert Eye: PERRL, anicteric sclera ENT: normocephalic atraumatic, no oropharyngeal lesions Neck: supple, symmetric, no JVD, no thyromegaly Heart: RRR, no murmur, no gallops, no rubs Respiratory: CTAB, no wheezes, no rales, no ronchi Gastrointestinal: soft, non-tender, non-distended Gastrointestinal - other findings: tube feeds in place Extremities: no cyanosis, no clubbing, no edema Skin: normal turgor, no lesions, no rashes Neurological: cranial nerve grossly intact, normal sensation to touch, no focal deficits, no new deficit Hosp A/P - Plan CT head: normal CTA head: no significant stenosis Chest X ray: no acute disease CTA thorax 03/17: complete consolidation/collapse of bilateral lower lobes with a mass like focal area of inferior-posterior right middle lobe opacity. No PE . Prominent coronary arterial calcification Chest X ray 03/22: cardiomegaly and persistent pleural effusion This is an 88 year old male with history of CAD s/p [place] who presented with acute altered mental status, hypoxia and shortness of breath, found to have heart rate in 170 on presentation, s/p intubation and extubation for tonic clonic seizure. Transferred to the floor. He is s/p PEG, pending placement Malnutrition/Dysphagia - barium swallow was negative - PEg tube placed on the . Speech re-evaluated patient, recommended continue tube feeds - plan for SNF placement since family cannot manage this #Acute tonic clonic seizure -s/p intubation and extubation #Metabolic encephalopathy vs from ICU delirium - seizure unclear etiology, possibly from pneumonia. CT head and CTA negative for stroke, MRI brain unable to be done since patient couldn't lay still - switch IV keppra to oral - continue IV keppra po bid. #S/p recent right tibia fracture # Xray shows stable appearance - venous dopplers negative for DVT - per ortho, patient is to be non-weight bearing status #Acute hypoxic respiratory failure from pneumonia vs acute diastolic CHF - [facility] #Lactic acidosis - possibly from seizure vs sepsis - was intubated, then extubated. CTA showed bilateral lower lobe consolidation and mass in RML. Mass per family is old and secondary to scarring from hemothorax drainage - was on vancomycin and cefepime from 03/16 -03/19, then meropenem for > 7 days - continue oral lasix #Enterococcus faecalis UTI - was on cefepime since and switched to meropenem on . 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 Cardiology consulted, no changes in management - troponin downtrended. ECHO showed EF 50-55%, moderate MR, mild to moderate TR , mild AR. - Aspirin 81 mg. Not on coumadin due to thoracic hematoma #BPH - not on meds #Hypothyroidism - continue oral levothyroxine. TSH normal #History of SIADH #Hyponatremia- resolved Dispo: placement and SNF referral, stable for d/c Code status: chemical code + intubation, no CPR
[2019-04-03] MEDS ORDERED: levETIRAcetam 500 MG TAB PO SCH (21:00)
[2019-04-04 06:39] LABS: Hemoglobin 9.9 g/dL (14.0-18.0); Mean Corpuscular HGB CONC 34.3 g/dL (32.0-36.0); Mean Corpuscular Volume 99.3 fL (78.0-98.0); Mean Platelet Volume 8.2 fL (7.4-10.4); Platelet Count 246 thou/uL (130-400); RBC Distribution Width 14.3 % (11.5-14.5); Red Blood Cell (RBC) Count 2.91 mill/uL (4.70-6.10); White Blood Cell (WBC) Count 4.2 thou/uL (4.8-10.8)
[2019-04-04 07:17] LABS: Anion Gap 12 mmol/L (10-20); BUN (Urea Nitrogen) 34 mg/dL (8.4-25.7); Calc. Creatinine Clearance 44 mL/min (70-130); Calcium 8.8 mg/dL (7.8-10.44); Carbon Dioxide 31 mmol/L (23-31); Chloride 102 mmol/L (98-107); Estimated GFR-MDRD 73; Globulin 2.9 g/dL (2.4-3.5); Glucose 126 mg/dL (83-110); Potassium 3.8 mmol/L (3.5-5.1); Protein, Total 6.3 g/dL (5.8-8.1); Sodium 141 mmol/L (136-145)
[2019-04-04 08:26] LABS: Albumin 3.4 g/dL (3.4-4.8)
[2019-04-04 08:30] LABS: Bilirubin, Total 2.2 mg/dL (0.2-1.2)
[2019-04-04 08:31] LABS: Alkaline Phosphatase 55 U/L (40-110)
[2019-04-04 08:34] LABS: ALT (SGPT) 11 U/L (8-55); AST (SGOT) 24 U/L (5-34)
[2019-04-04] MEDS: Pantoprazole 40 MG GRANULES PACKET PO SCH (08:56)
[2019-04-04] MEDS: Furosemide 20 MG TAB PO SCH (08:56)
[2019-04-04] MEDS: Aspirin 81 mg Enteric Coated Tablet PO SCH (08:56)
[2019-04-04] MEDS: Loratadine 10 MG TAB PO SCH (08:56)
--- NOTE | 2019-04-04 13:43 | PDOC.HOSPP ---
- Subjective Encounter Date: 04/04/19 Encounter Time: 13:43 Subjective: The patient is doing well, no complaints. He is still getting tube feeds. The patient states he doesn't remember why he was here and was surprised that he had a seizure, pneumonia, urine infection during his hospitalization. Currently still pending placement - Objective Vital Signs & Weight: Vital Signs (12 hours) Temp Pulse Resp BP Pulse Ox 04/04/19 08:00 96 04/04/19 07:27 97.7 F 86 20 98/63 96 Weight Admit Weight 141 lb 8.588 oz Weight 126 lb Most Recent Monitor Data Heart Rate from ECG 96 NIBP 126/75 NIBP BP-Mean 92 Respiration from ECG 16 SpO2 100 I&O: 04/03/19 04/04/19 04/05/19 06:59 06:59 06:59 Intake Total 1845 2345 30 Output Total 1275 1070 Balance 570 1275 30 Result Diagrams: 04/04/19 06:22 04/04/19 06:22 Additional Labs: Accuchecks 04/04/19 04/04/19 04/03/19 11:42 04:36 20:01 POC Glucose 114 H 111 H 111 H 04/03/19 16:01 POC Glucose 101 Hospitalist ROS - Review of Systems Constitutional: denies: fever, chills - Medication Medications: Active Medications Generic Name Dose Route Start Last Admin Trade Name Freq PRN Reason Stop Dose Admin Aspirin 81 mg 03/23/19 09:00 04/04/19 08:56 Ecotrin PO 81 mg DAILY DONALD Administration Enoxaparin Sodium 40 mg 03/30/19 21:00 04/03/19 20:19 Lovenox SC 40 mg 2100 DONALD Administration Furosemide 40 mg 03/23/19 09:00 04/04/19 08:56 Lasix PO 40 mg DAILY DONALD Administration Labetalol HCl 20 mg 03/16/19 12:47 03/20/19 01:04 Normodyne SLOW IVP 20 mg Q4H PRN Administration SBP >= 180 Levothyroxine Sodium 112 mcg 03/18/19 21:00 04/03/19 20:20 Synthroid PO 112 mcg HS DONADL Administration Levothyroxine Sodium 25 mcg 03/18/19 21:00 04/03/19 20:20 Synthroid PO 25 mcg HS DONALD Administration Loratadine 10 mg 03/23/19 09:00 04/04/19 08:56 Claritin PO 10 mg DAILY DONALD Administration Pantoprazole Sodium 40 mg 04/04/19 09:00 04/04/19 08:56 Protonix PO 40 mg DAILY DONALD Administration Sodium Chloride 10 ml 03/18/19 09:00 04/04/19 08:56 Flush - Normal Saline IVF 10 ml Q12HR DONALD Administration - Exam General Appearance: NAD, awake alert Eye: PERRL, anicteric sclera ENT: normocephalic atraumatic, no oropharyngeal lesions Neck: supple, symmetric, no JVD, no thyromegaly Heart: RRR, no murmur, no gallops, no rubs Respiratory: CTAB, no wheezes, no rales, no ronchi Gastrointestinal: soft, non-tender, non-distended, normal bowel sounds Extremities: no cyanosis, no clubbing Skin: normal turgor, no lesions, no rashes Hosp A/P - Plan CT head: normal CTA head: no significant stenosis Chest X ray: no acute disease CTA thorax 03/17: complete consolidation/collapse of bilateral lower lobes with a mass like focal area of inferior-posterior right middle lobe opacity. No PE . Prominent coronary arterial calcification Chest X ray 03/22: cardiomegaly and persistent pleural effusion This is an 88 year old male with history of CAD s/p [place] who presented with acute altered mental status, hypoxia and shortness of breath, found to have heart rate in 170 on presentation, s/p intubation and extubation for tonic clonic seizure. Transferred to the floor. He is s/p PEG, pending placement Malnutrition/Dysphagia - barium swallow was negative - PEg tube placed on the . Speech re-evaluated patient, recommended continue tube feeds - pending placement #Acute tonic clonic seizure -s/p intubation and extubation #Metabolic encephalopathy vs from ICU delirium - seizure unclear etiology, possibly from pneumonia. CT head and CTA negative for stroke, MRI brain unable to be done since patient couldn't lay still -continue oral keppra #S/p recent right tibia fracture # Xray shows stable appearance - venous dopplers negative for DVT - per ortho, patient is to be non-weight bearing status for now with repeat X rays in a month #Acute hypoxic respiratory failure from pneumonia vs acute diastolic CHF #Lactic acidosis - possibly from seizure vs sepsis - was intubated, then extubated. CTA showed bilateral lower lobe consolidation and mass in RML. Mass per family is old and secondary to scarring from hemothorax drainage - was on vancomycin and cefepime from 03/16 -03/19, then meropenem for > 7 days - continue oral lasix #Enterococcus faecalis UTI - was on cefepime since and switched to meropenem on . 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 Cardiology consulted, no changes in management - troponin downtrended. ECHO showed EF 50-55%, moderate MR, mild to moderate TR , mild AR. - continue aspirin 81 mg, not on coumadin due to bleeding complication in the past #BPH - not on meds #Hypothyroidism - continue oral levothyroxine. TSH normal #History of SIADH #Hyponatremia- resolved Dispo: placement and SNF referral, stable for d/c Code status: chemical code + intubation, no CPR
[2019-04-04 13:55] VITALS: BMI 18.1
[2019-04-04] MEDS: Enoxaparin Sodium 40 MG/0.4 ML SYRINGE SC SCH (20:09)
[2019-04-04] MEDS: Levothyroxine Sodium 112 MCG TAB PO SCH (20:10)
[2019-04-04] MEDS: Levothyroxine Sodium 25 MCG TAB PO SCH (20:10)
[2019-04-05] MEDS ORDERED: levETIRAcetam 500 mg/5 ml Oral Solution PO SCH ×2 (02:00→09:00)
[2019-04-05 06:17] LABS: Hemoglobin 9.3 g/dL (14.0-18.0); Mean Corpuscular HGB CONC 33.8 g/dL (32.0-36.0); Mean Corpuscular Hemoglobin 33.5 pg (27.0-31.0); Mean Corpuscular Volume 99.2 fL (78.0-98.0); Platelet Count 229 thou/uL (130-400); RBC Distribution Width 14.3 % (11.5-14.5); Red Blood Cell (RBC) Count 2.76 mill/uL (4.70-6.10); White Blood Cell (WBC) Count 3.9 thou/uL (4.8-10.8)
[2019-04-05 07:01] LABS: ALT (SGPT) 13 U/L (8-55); AST (SGOT) 22 U/L (5-34); Albumin 3.3 g/dL (3.4-4.8); Alkaline Phosphatase 54 U/L (40-110); Anion Gap 11 mmol/L (10-20); BUN (Urea Nitrogen) 34 mg/dL (8.4-25.7); Bilirubin, Total 2.2 mg/dL (0.2-1.2); Calc. Creatinine Clearance 48 mL/min (70-130); Calcium 9.1 mg/dL (7.8-10.44); Carbon Dioxide 33 mmol/L (23-31); Chloride 101 mmol/L (98-107); Estimated GFR-MDRD 81; Glucose 119 mg/dL (83-110); Potassium 3.9 mmol/L (3.5-5.1); Protein, Total 6.3 g/dL (5.8-8.1); Sodium 141 mmol/L (136-145)
[2019-04-05 07:39] VITALS: BP 106/63; TEMP 98.1
[2019-04-05] MEDS ORDERED: Aspirin Chewable 81 MG TAB PO SCH (09:00)
[2019-04-05] MEDS: Pantoprazole 40 MG GRANULES PACKET PO SCH (10:06)
[2019-04-05] MEDS: Loratadine 10 MG TAB PO SCH (10:06)
[2019-04-05] MEDS: Furosemide 20 MG TAB PO SCH (10:07)
[2019-04-05] MEDS: Aspirin 81 mg Enteric Coated Tablet PO SCH (10:07)
--- NOTE | 2019-04-05 16:32 | DIS ---
DATE OF ADMISSION: 03/16/2019 DATE OF DISCHARGE: 04/05/2019 BRIEF HISTORY OF PRESENT ILLNESS: This is an 88-year-old with past medical history of BPH, CAD, status post MT, hypertension, AFib, who presented to the emergency room with altered mental status. The patient was not responsive and was staring off into space. The patient had complained of shortness of breath and an ambulance was called. On arrival to the ER, the patient's O2 saturation was 80% and the patient was having a tonic-clonic seizure. The patient was intubated for airway protection and initially admitted to the ICU. The patient also had an episode of SVT with heart rate in the 170s, which resolved with intubation. The patient underwent a CT scan of his head in the ER, which was negative and a CTA of his brain, which showed no stenosis. Chest x-ray was initially unremarkable. Labs were remarkable for a white count of 15, sodium of 130, and a lactate of 11.2. The patient was initially treated with IV cefepime. HOSPITAL COURSE: Acute tonic-clonic seizure E faecalis UTI The patient was intubated for this and eventually extubated. The patient was started on Keppra after Neurology consultation. The patient had a CT scan of his head and a CTA, which were negative for stroke. The MRI of his brain was ordered, however, this was unable to be done due to the patient's agitation, encephalopathy, and restlessness. The patient had a UA, which was positive for Enterococcus faecalis. Blood cultures were negative. CTA of the patient's chest had shown bilateral pneumonia. The patient was treated with IV antibiotics for 7 days. The patient had no further seizures during his hospitalization and will be discharged with Keppra. The patient will need Neurology followup in 1 week. Lactic acidosis: The patient presented with a lactic acid of 11.2. Repeat lactic acid came down to 1.8 after resuscitation with IV fluids. The patient did have Enterococcal faecalis UTI and pneumonia. The patient was treated with IV cefepime from the to the and was switched to meropenem. The patient received meropenem for 7 days and was transitioned to oral Augmentin temporarily. Acute hypoxic respiratory failure secondary to bilateral pneumonia versus acute diastolic CHF: The patient did require intubation and extubation during his hospitalization. CTA showed bilateral lobe consolidation and a mass in the right middle lobe. Per family, the mass is old and secondary to scarring from hemothorax drainage that was done in the past due to complications of Coumadin. The patient received cefepime from 03/16 to 03/19, then meropenem for more than 7 days. The patient was also diuresed with Lasix and will be discharged with oral Lasix. Malnutrition, dysphagia: After the patient's seizure, the patient did have some encephalopathy that was persistent. The patient's mental status has now come back to baseline, however, the patient continued to have issues with swallowing. The patient underwent a barium swallow, which was negative; however, modified barium swallow was abnormal. The patient had a PEG tube placed on the . Speech revaluated the patient on the and the patient was advised to continue his tube feeds. The patient will be discharged with Jevity 1.2 at 70 mL/h, continuous feeding at full strength. Anemia: The patient had hemoglobin of 9 during his hospitalization. Vitamin B12, folate, and TSH were normal. Consideration of outpatient colonoscopy should be done. Leukocytosis: The patient had a white blood cell count of 15.4 on admission, which came down to 3.9. The patient has not had any fevers. This could be monitored as an outpatient. SVT/AFib with RVR, moderate MR, jqtg-vn-pjlutfgt TR, mild AR, CAD, status post PCI: The patient had presented with a heart rate of 170 on admission with EKG showing SVT with some T-wave changes. Cardiology was consulted and did not feel this is cardiac. The patient underwent an echo, which showed an EF of 50% to 55% with moderate MR, qdas-kc-ldsfadid TR, and mild AR. The patient will be continued on aspirin 81 mg daily. The patient is not taking Coumadin due to bleeding in the past. Physical deconditioning: The patient has some cognitive deficits after this hospitalization and we discharged to an SNF since the patient is now requiring tube feeds and family members are not able to manage this at home. DISCHARGE PHYSICAL EXAMINATION: VITAL SIGNS: Temperature 98.1, heart rate 89, respiratory rate 20, O2 saturation 94% on room air, blood pressure 106/63. GENERAL: The patient is alert and oriented to being in the hospital. However, he is confused as to the course of events that have happened. CVS: Regular rate and rhythm with no murmurs, rubs, or gallops. LUNGS: Clear to auscultation bilaterally. ABDOMEN: Positive bowel sounds, soft, nontender, nondistended. EXTREMITIES: No edema. NEURO: The patient is moving all 4 extremities. He has 5/5 strength in his upper and lower extremities. His sensation is intact in all 4 extremities. PERTINENT LABORATORY DATA: 1. CBC, 04/05: Shows a white blood cell count of 3.9, hemoglobin of 9.3, hematocrit of 27.4, platelet count of 229. 2. BMP, 04/05: Shows a carbon dioxide of 33, BUN 34, glucose of 119, AST 22, ALT 13, alkaline phosphatase 54, total bilirubin 2.2. 3. Vitamin B12: 488. 4. Folate: 8.3. 5. TSH: 1.7. PERTINENT IMAGIN. CT brain, 03/16: Shows periventricular, deep and subcortical white matter hypodensity with evidence of small-vessel disease. 2. CTA, 03/16: Shows no hemodynamically significant stenosis. 3. Chest x-ray, 03/16: Shows no evidence of acute disease. 4. Venogram, 03/16: Shows no evidence of DVT. 5. CTA thorax, 03/17: Shows near-complete consolidation/collapse of bilateral lower lobes with a mass-like focal area of inferior-posterior right middle lobe opacity. The patient should have followup imaging of the chest by CT in 6 weeks to 3 months. There is no evidence of PE. There is prominent coronary arterial calcification. 6. Knee x-ray, 03/18: Shows stable appearance of proximal tibial fracture. 7. Abdominal x-ray, 03/22: Shows a Dobbhoff feeding tube in place. 8. Chest x-ray, 03/23: Shows bilateral pleural effusions and cardiomegaly. DISCHARGE CONDITION: The patient is oriented to place, however, pleasantly confused as to details of hospitalization. ACTIVITY: The patient needs to be nonweightbearing to his right lower extremity. He needs follow up with Dr. Schmitt in a week with repeat x-rays to reassess his weightbearing status. DIET: Jevity 1.2 at 70 mL/h, continuous, full strength tube feedings. DISCHARGE INSTRUCTIONS: The patient will be discharged to [facility]. The patient should follow up with his PCP in a week, Dr. Schmitt in a week, and with Dr. Gillespie in a week. DISCHARGE MEDICATIONS: New medications: Keppra 500 mg p.o. b.i.d. All other home medications were resumed. Please refer to discharge med worksheet. Job ID: [id number] MTDD
--- NOTE | 2019-04-08 01:14 | PQF ---
SHERON LOPEZ UMA [id number]- [id number] CLINICAL DOCUMENTATION CLARIFICATION FORM: POST DISCHARGE Addendum to original discharge summary date: ____ Late entry note date: __ DATE: 04/08/19 ATTN: Kamilah Dobson Please exercise your independent, professional judgment in responding to the clarification form. Clinical indicators are provided on the bottom of this form for your review Please check appropriate box(s) to clarify if the following diagnosis has been ruled in or ruled out: SEPSIS [ x ] Ruled in diagnosis [ ] Continue to treat [ ] Resolved [ ] Ruled out diagnosis [ ] Cannot rule out diagnosis [ ] Other diagnosis [ ] Unable to determine In addition, please specify: Present on Admission (POA): [ ] Yes [ ] No [ ] Unable to determine For continuity of documentation, please document condition throughout progress notes and discharge summary. Thank You. CLINICAL INDICATORS - SIGNS / SYMPTOMS / LABS PN 04/04 "lactic acidosis possibly form seizure vs sepsis" DS 04/05 "presented with lactic acid of 11.2" DS 04/05 "urine culture which was positive for enterococcus faecalis" HP 03/16 "acute hypoxic respiratory failure" ED 03/16 "patient has altered mental status" ED Vital signs:BP:121/69, Pulse:105, Respi:23 RISK FACTORS ED 03/16-88 years old male ED 03/16-CHF ED 03/16-HTN DS 04/05-UTI DS 04/05-PNA DS 04/05-Malnutrition TREATMENTS Collected 03/16-Chest Xray HP 03/16-Intubation with ventilation DS 04/05-Admit ICU DS 04/05-Urine and blood culture MAR 03/16-Maxipime 1gm IV MAR 03/16-IVF (This form is maintained as a part of the permanent medical record) 2014 [employer]. All Rights Reserved [email or web address] [not provided] MTDD
--- NOTE | 2019-04-09 04:07 | PQF ---
SHERON LOPEZ UMA [id number] [id number]- [id number] CLINICAL DOCUMENTATION CLARIFICATION FORM: POST DISCHARGE Addendum to original discharge summary date: ____ Late entry note date: __ DATE: 04/09/19 ATTN: Kamilah Dobson Please exercise your independent, professional judgment in responding to the clarification form. Clinical indicators are provided on the bottom of this form for your review Please check appropriate box(es): [ X ] Acute respiratory failure related to sepsis [ ] Acute respiratory failure not related to sepsis [ ] Other diagnosis [ ] Unable to determine For continuity of documentation, please document condition throughout progress notes and discharge summary. Thank You. CLINICAL INDICATORS - SIGNS / SYMPTOMS / LABS Query response Sepsis ruled in HP 03/16 "acute hypoxic respiratory failure" ED 03/16 "patient has altered mental status" PN 04/04 "lactic acidosis possibly form seizure vs sepsis" RISK FACTORS ED 03/16-88 years old male ED 03/16-CHF ED 03/16-HTN DS 04/05-UTI DS 04/05-PNA DS 04/05-Malnutrition TREATMENTS: Collected 03/16-Chest Xray HP 03/16-Intubation with ventilation DS 04/05-Admit ICU DS 04/05-Urine and blood culture MAR 03/16-Maxipime 1gm IV MAR 03/16-IVF (This form is maintained as a part of the permanent medical record) 2014 [employer] All Rights Reserved [email or web address] [not provided] MTDD
== END 2019-04-05 15:55 | DRG 871 ==
LOC: ERS 07:37 → CCU 08:13 → IMCU/EMU 03-23 10:40 → T4-B 03-25 22:56
PROVIDERS: ADMIT Pediatrics; ATTEND Internal Medicine
PROC: 0BH17EZ Insertion of Endotracheal Airway into Trachea, Via Natural or Artificial Opening (ICD-10-PCS; 2019-03-16)
PROC: 5A1945Z Respiratory Ventilation, 24-96 Consecutive Hours (ICD-10-PCS; 2019-03-16)
PROC: 3E0234Z Introduction of Serum, Toxoid and Vaccine into Muscle, Percutaneous Approach (ICD-10-PCS; principal; 2019-03-17)
PROC: 3E02340 Introduction of Influenza Vaccine into Muscle, Percutaneous Approach (ICD-10-PCS; 2019-03-17)
PROC: 0DH63UZ Insertion of Feeding Device into Stomach, Percutaneous Approach (ICD-10-PCS; 2019-03-30)
DX: A41.9 Sepsis, unspecified organism (principal); J96.01 Acute respiratory failure with hypoxia; J18.9 Pneumonia, unspecified organism; G93.41 Metabolic encephalopathy; E43 Unspecified severe protein-calorie malnutrition; I50.33 Acute on chronic diastolic (congestive) heart failure; I47.1 Supraventricular tachycardia; E87.2 Acidosis; E22.2 Syndrome of inappropriate secretion of antidiuretic hormone; N39.0 Urinary tract infection, site not specified; E87.1 Hypo-osmolality and hyponatremia; Z68.1 Body mass index [BMI] 19.9 or less, adult; R65.20 Severe sepsis without septic shock; K44.9 Diaphragmatic hernia without obstruction or gangrene; Z23 Encounter for immunization; I11.0 Hypertensive heart disease with heart failure; E78.00 Pure hypercholesterolemia, unspecified; K21.9 Gastro-esophageal reflux disease without esophagitis; E03.9 Hypothyroidism, unspecified; N40.0 Benign prostatic hyperplasia without lower urinary tract symptoms; I48.91 Unspecified atrial fibrillation; I25.10 Atherosclerotic heart disease of native coronary artery without angina pectoris; I49.3 Ventricular premature depolarization; E11.9 Type 2 diabetes mellitus without complications; I08.3 Combined rheumatic disorders of mitral, aortic and tricuspid valves; E87.6 Hypokalemia; D64.9 Anemia, unspecified; G40.409 Other generalized epilepsy and epileptic syndromes, not intractable, without status epilepticus; B95.2 Enterococcus as the cause of diseases classified elsewhere; E83.39 Other disorders of phosphorus metabolism; R13.12 Dysphagia, oropharyngeal phase; Z88.1 Allergy status to other antibiotic agents; Z88.0 Allergy status to penicillin; Z88.2 Allergy status to sulfonamides; Z88.8 Allergy status to other drugs, medicaments and biological substances; Z79.82 Long term (current) use of aspirin; Z79.890 Hormone replacement therapy; Z79.899 Other long term (current) drug therapy; I25.2 Old myocardial infarction; Z95.5 Presence of coronary angioplasty implant and graft; Z87.01 Personal history of pneumonia (recurrent); Z78.1 Physical restraint status
CPT/HCPCS: 31500; 36415; 36416; 51702; 70450; 70496; 70498; 71045; 71275; 74018; 74230; 80053; 80202; 81003; 81015; 82550; 82553; 82607; 82746; 82805; 83605; 83735; 83880; 84100; 84443; 84484; 85025; 85027; 85610; 85730; 87040; 87077; 87086; 87186; 89220; 93005; 93010; 93306; 93970; 94002; 94003; 96365; 96366; 96375; 99292; C9113; J0692; J1630; J1650; J1940; J1953; J2060; J2185; J2704; J2920; J3370; J3475; J3480; J3490; J7050; J7120; Q9967

== ENCOUNTER 2019-04-29 00:04 | Observation (INO) | payer MEDICARE, BC ==
[2019-04-29] MEDS ORDERED: Nitroglycerin 2% Ointment 1 INCH/1 GM Packet ONE (00:23)
[2019-04-29] MEDS ORDERED: Ondansetron PF 4 MG/2 ML Vial ONE (00:58)
[2019-04-29] MEDS ORDERED: Fentanyl 100 MCG/2 ML VIAL ONE (00:58)
[2019-04-29 00:59] LABS: #Basophils 0.1 thou/uL (0.0-0.2); #Eosinphils 0.1 thou/uL (0.0-0.7); #Lymphocytes 1.2 thou/uL (1.20-3.40); #Monocytes 0.6 thou/uL (0.11-0.59); #Neutrophils 4.1 thou/uL (1.40-6.50); %Basophils 1.9 % (0.0-1.0); %Eosinophils 2.3 % (0.0-10.0); %Monocytes 10.3 % (0.0-10.0); %Neutrophils 65.5 % (42.0-75.0); Hemoglobin 10.2 g/dL (14.0-18.0); Mean Corpuscular HGB CONC 35.5 g/dL (32.0-36.0); Mean Corpuscular Volume 98.6 fL (78.0-98.0); Mean Platelet Volume 7.9 fL (7.4-10.4); Platelet Count 160 thou/uL (130-400); RBC Distribution Width 13.7 % (11.5-14.5); Red Blood Cell (RBC) Count 2.91 mill/uL (4.70-6.10); White Blood Cell (WBC) Count 6.2 thou/uL (4.8-10.8)
[2019-04-29 01:10] LABS: ALT (SGPT) 26 U/L (8-55); AST (SGOT) 39 U/L (5-34); Albumin 3.3 g/dL (3.4-4.8); Alkaline Phosphatase 63 U/L (40-110); Anion Gap 12 mmol/L (10-20); BUN (Urea Nitrogen) 19 mg/dL (8.4-25.7); Bilirubin, Total 1.1 mg/dL (0.2-1.2); Calc. Creatinine Clearance 0 mL/min (70-130); Calcium 8.1 mg/dL (7.8-10.44); Carbon Dioxide 28 mmol/L (23-31); Chloride 91 mmol/L (98-107); Estimated GFR-MDRD Greater than 90; Globulin 2.7 g/dL (2.4-3.5); Glucose 120 mg/dL (83-110); Potassium 3.9 mmol/L (3.5-5.1); Sodium 127 mmol/L (136-145)
[2019-04-29 03:52] LABS: Troponin I Less than 0.010 ng/mL (< 0.028)
[2019-04-29 04:04] VITALS: BMI 19.6
[2019-04-29] MEDS ORDERED: Ondansetron PF 4 MG/2 ML Vial IVP PRN (04:35)
[2019-04-29] MEDS ORDERED: Ondansetron ODT 4 MG TAB SL PRN (04:35)
[2019-04-29] MEDS ORDERED: Acetaminophen 325 MG TAB PO PRN (04:35)
[2019-04-29 06:37] LABS: Troponin I Less than 0.010 ng/mL (< 0.028)
--- NOTE | 2019-04-29 07:36 | RAD ---
XR Chest 1 View Portable History: Chest pain Comparison: Radiograph March 23, 2019 Findings: Similar appearance of the chest with a lentiform opacity right lower lobe. Unchanged chroni c bilateral layering pleural effusions. Heart size is enlarged. Mild pulmonary edema. No pneumothorax. Impression: Similar examination of the chest. Chronic layering pleural effusions and lentiform opacit y right lower lobe may reflect round atelectasis less likely a mass.
[2019-04-29] MEDS: Ibuprofen 200 MG TAB PO PRN ×2 (10:59→15:39)
[2019-04-29] MEDS ORDERED: levETIRAcetam 500 MG TAB PO SCH (13:30)
[2019-04-29] MEDS: Lidocaine 5% Patch TD SCH (13:52)
--- NOTE | 2019-04-29 19:01 | PDOC.HHP ---
Hospitalist HPI - History of Present Illness chest pain/back pain History of Present Illness: This is an 88 year old male with past medical history of BPH, hypertension, afib , CAD who was recently discharged from our facility last month for tonic clonic seizure, E faecalis UTI, pneumonia s/p PEG tube placement and presented to the emergency room with questionable chest/ back pain. Patient is a poor historian. Per , he was complaining that his chest hurt and he needed to go to the hospital. When patient arrived to the floor, the patient had no chest pain but just some back pain. He denies fevers, chills, shortness of breath or cough. He denies runny nose or sore throat. ED Course: In the ER the patient received IV zofran, IV fentanyl, nitro and IV fluid. Troponins were negative times three. CHest Xray showed chronic bi-layering pleural effusions. Labs notable for sodium of 127. Hospitalist ROS - Review of Systems Constitutional: denies: fever, chills Respiratory: denies: cough, dry, shortness of breath Cardiovascular: denies: chest pain, palpitations, orthopnea Gastrointestinal: denies: nausea, vomiting, abdominal pain, diarrhea Musculoskeletal: denies: neck pain, shoulder pain, back pain, foot pain Skin: denies: lesions Neurological: denies: weakness, numbness - Medication Medications: Active Medications Generic Name Dose Route Start Last Admin Trade Name Freq PRN Reason Stop Dose Admin Ibuprofen 200 mg 04/29/19 10:33 04/29/19 15:39 Motrin PO 200 mg Q4H PRN Administration Pain Lidocaine 1 patch 04/29/19 14:00 04/29/19 13:52 Lidoderm 5% Patch TD 1 patch 1400 DONALD Administration Hospitalist History - Past Medical History Cardiac: reports: CAD, CHF (diastolic), Other (moderate MR) BUSINESS SUPPORT ASSOCIATE: reports: Dementia, Seizure Heme/Onc: reports: Anemia NOS Renal/: reports: Benign prostatic enlarg. Endocrine: reports: Hypothyroidism, Other (SIADH) - Past Surgical History Other Surgical History: PTCA with PCI and stent placement Ablation for atrial fibrillation PEG tube placement on the 7th Hemothorax drainage in the past with left lung decortication Tonsillectomy - Family History Other Family History: SIADH - Social History Smoking Status: Never smoker Alcohol: reports: Occassional (2 beers daily) - Exam General Appearance: NAD, awake alert Eye: PERRL, anicteric sclera ENT: normocephalic atraumatic, no oropharyngeal lesions Neck: supple, symmetric, no JVD, no thyromegaly Heart: RRR, no murmur, no gallops, no rubs Respiratory: CTAB, no wheezes, no rales, no ronchi Gastrointestinal: soft, non-tender, non-distended, normal bowel sounds Extremities: no cyanosis, no clubbing, no edema Neurological: no new deficit Musculoskeletal - other findings: No spinal tenderness Psychiatric: normal affect, normal behavior, oriented to person Hospitalist Results - Labs Result Diagrams: 04/29/19 00:42 04/29/19 00:42 Lab results: WBC 6.2 thou/uL (4.8-10.8) 04/29/19 00:42 Hgb 10.2 g/dL (14.0-18.0) L 04/29/19 00:42 Hct 28.7 % (42.0-52.0) L 04/29/19 00:42 MCV 98.6 fL (78.0-98.0) H 04/29/19 00:42 Plt Count 160 thou/uL (130-400) 04/29/19 00:42 Neutrophils % 65.5 % (42.0-75.0) 04/29/19 00:42 Sodium 127 mmol/L (136-145) L 04/29/19 00:42 Potassium 3.9 mmol/L (3.5-5.1) 04/29/19 00:42 Chloride 91 mmol/L (98-107) L 04/29/19 00:42 Carbon Dioxide 28 mmol/L (23-31) 04/29/19 00:42 BUN 19 mg/dL (8.4-25.7) 04/29/19 00:42 Creatinine 0.73 mg/dL (0.7-1.3) 04/29/19 00:42 Glucose 120 mg/dL (83-110) H 04/29/19 00:42 Calcium 8.1 mg/dL (7.8-10.44) 04/29/19 00:42 Total Bilirubin 1.1 mg/dL (0.2-1.2) 04/29/19 00:42 AST 39 U/L (5-34) H 04/29/19 00:42 ALT 26 U/L (8-55) 04/29/19 00:42 Alkaline Phosphatase 63 U/L (40-110) 04/29/19 00:42 Troponin I Less than 0.010 ng/mL (< 0.028) 04/29/19 05:59 Serum Total Protein 6.0 g/dL (5.8-8.1) 04/29/19 00:42 Albumin 3.3 g/dL (3.4-4.8) L 04/29/19 00:42 Hospitalist H&P A/P - Plan Plan: This is an 88 year old male with past medical history of BPH, CAD s/p PCI, afib , hypothyroidism who presented from the [facility] for possible chest pain #Possible Acute Diastolic CHF - Chest X ray shows pulmonary venous congestion with bilateral pleural effusions - will trial one dose of IV lasix 20 mg. Currently patient is not on oxygen - ECHO in March showed diastolic dysfunction with moderate MR, mild AR #Hyponatremia #SIADH - sodium of 127 - sodium during last hospitalization was much higher however, will check urine and serum osmolarity - trial of lasix in the event this is secondary to pleural effusion #Chronic malnutrition - on PEG tube #Back pain - no tenderness on exam - PT evaluated patient, recommending d/c back to facility #Seizures - continue keppra bid #Hypothyroidism - continue levothyroxine #Anemia - stable. B12 normal on last admission Code status: full code
[2019-04-29] MEDS ORDERED: Furosemide 20 MG/2 ML VIAL SLOW IVP SCH (19:30)
[2019-04-29] MEDS ORDERED: Loratadine 10 MG TAB PO SCH (21:00)
[2019-04-29] MEDS ORDERED: Levothyroxine Sodium 112 MCG TAB PO SCH (21:00)
[2019-04-29] MEDS ORDERED: Levothyroxine Sodium 25 MCG TAB PO SCH (21:00)
[2019-04-29] MEDS ORDERED: Aspirin 81 mg Enteric Coated Tablet PO SCH (21:00)
[2019-04-29] MEDS: levETIRAcetam 500 MG TAB PO SCH (21:08)
[2019-04-30] MEDS ORDERED: Lidocaine Patch Removal 1 EACH TOP SCH (02:00)
[2019-04-30] MEDS: levETIRAcetam 500 MG TAB PO SCH ×2 (02:47→07:37)
[2019-04-30 04:44] LABS: Mean Corpuscular HGB CONC 34.2 g/dL (32.0-36.0); Mean Corpuscular Hemoglobin 33.8 pg (27.0-31.0); Mean Corpuscular Volume 98.9 fL (78.0-98.0); Mean Platelet Volume 8.1 fL (7.4-10.4); Platelet Count 147 thou/uL (130-400); RBC Distribution Width 13.7 % (11.5-14.5); Red Blood Cell (RBC) Count 2.96 mill/uL (4.70-6.10); White Blood Cell (WBC) Count 4.4 thou/uL (4.8-10.8)
[2019-04-30 05:19] LABS: Anion Gap 13 mmol/L (10-20); BUN (Urea Nitrogen) 19 mg/dL (8.4-25.7); Calc. Creatinine Clearance 56 mL/min (70-130); Calcium 8.3 mg/dL (7.8-10.44); Carbon Dioxide 30 mmol/L (23-31); Chloride 92 mmol/L (98-107); Estimated GFR-MDRD Greater than 90; Glucose 117 mg/dL (83-110); Potassium 3.7 mmol/L (3.5-5.1); Sodium 131 mmol/L (136-145)
--- NOTE | 2019-04-30 10:10 | RAD ---
EXAM: Portable chest PROVIDED CLINICAL HISTORY: Pulmonary edema COMPARISON: 04/29/2019 FINDINGS: Significant interval change with respect to the prior examination is not apparent. IMPRESSION: As above.
[2019-04-30 11:19] VITALS: BP 97/58; TEMP 97.9
[2019-04-30] MEDS: Lidocaine 5% Patch TD SCH (14:54)
--- NOTE | 2019-04-30 16:16 | DIS ---
DATE OF ADMISSION: 04/29/2019 DATE OF DISCHARGE: 04/30/2019 DISCHARGE DIAGNOSES: Possible acute diastolic heart failure exacerbation, chest pain, back pain, and hyponatremia. SECONDARY DISCHARGE DIAGNOSES: Syndrome of inappropriate antidiuretic hormone secretion, chronic hyponatremia, chronic malnutrition, seizures, hypothyroidism, anemia, and back pain. CONSULTATIONS: None. PROCEDURES: None. BRIEF HISTORY OF PRESENT ILLNESS: This is an 88-year-old male with past medical history of BPH, hypertension, atrial fibrillation, and CAD, recently discharged from the hospital last month for acute tonic-clonic seizure requiring intubation, pneumonia status post PEG tube placement, and E faecalis UTI, who had presented to the emergency room with chest/back pain. The patient was a very poor historian , but according to the , the patient had been complaining of pain in his chest and stated that he need to go to the hospital. Nursing staff stated the patient had back pain upon arrival to the floor. The patient was admitted for further workup. HOSPITAL COURSE: Possible acute diastolic CHF: The patient had a chest x-ray on admission, which showed some pulmonary venous congestion. The patient did not require any oxygen. He was given a dose of IV Lasix 20 mg. Repeat chest x-ray the following day showed some mild pulmonary edema those persistent. On evaluation , the patient denied any shortness of breath, cough, or chest pain. He will be discharged with Lasix 40 mg for 3 more days. He was advised to follow a 2 L fluid restriction. He should follow up with his PCP in a week and consider a repeat chest x-ray at that time. Chest pain: the patient had EKG which was unremarkable. Troponins were negative times three. This may have been secondary to CHF. Hyponatremia: The patient had a sodium of 127 on admission. Serum osmolarity was 272 and urine osmolarity was 184. The patient was given IV Lasix 20 mg due to some pulmonary edema. Repeat sodium in the next day was 131. The patient was discharged with a 2 L fluid restriction and will be discharged with Lasix for few days. The patient should have a repeat BMP in a week to have his sodium rechecked. Back pain: The patient had reported some back pain, however, on exam, had no tenderness. The patient was seen by Physical Therapy, who stated that the patient can go back to his facility. Seizures: The patient was continued on his Keppra b.i.d. Chronic malnutrition: The patient will continue on his tube feeds. DISCHARGE PHYSICAL EXAMINATION: VITAL SIGNS: Temperature 97.9, heart rate 76, respiratory rate 16, O2 saturation 98% on room air, and blood pressure of 97/ 58. GENERAL: The patient is alert, awake, and oriented x1, which is his baseline. CVS: Regular rate and rhythm with no murmurs, rubs, or gallops. LUNGS: Clear to auscultation bilaterally. ABDOMEN: Positive bowel sounds, soft, nontender, and nondistended. EXTREMITIES: No edema. PERTINENT LABORATORY DATA: CBC on 04/30: White blood cell count 4.4, hemoglobin 10.0, hematocrit 29.3, and platelet count 147. BMP on 04/30: Sodium was 131 and chloride 92. Serum osmolarity: 272. Urine osmolarity: 184. Troponin I: less than 0.010 x3. BNP 219.4. PERTINENT IMAGING: Chest x-ray on 04/29: Shows chronic layering pleural effusions and lentiform opacity in the right lower lobe, which may reflect round atelectasis, less likely a mass. Chest x-ray on 04/30: Shows no significant interval change. DISCHARGE CONDITION: Stable. DISCHARGE DISPOSITION: Discharged back to the nursing facility. DIET: 2 L fluid restriction with heart healthy diet. ACTIVITY: The patient should be nonweightbearing on the right leg due to a fracture on the right leg in the past. DISCHARGE MEDICATIONS: 1. The patient should continue Lasix 40 mg p.o. daily for 3 days and have a BMP rechecked in a week. 2. Continue aspirin 81 mg daily. 3. Levothyroxine 137 mcg p.o. at bedtime. 4. Claritin 10 mg p.o. at bedtime. 5. Omeprazole 20 mg p.o. at bedtime. 6. Keppra 500 mg p.o. b.i.d. DISCHARGE INSTRUCTIONS: The patient is to follow up with PCP in a week. The patient should consider repeat chest x-ray in a week. The patient should have a repeat BMP done in a week. Job ID: [id number] MTDD
[2019-04-30] MEDS ORDERED: levETIRAcetam 500 MG TAB PER TUBE SCH (21:00)
--- NOTE | 2019-05-11 14:59 | EKG ---
Test Reason : CHEST PAIN Blood Pressure : / mmHG Vent. Rate : 067 BPM Atrial Rate : 067 BPM P-R Int : 000 ms QRS Dur : 088 ms QT Int : 446 ms P-R-T Axes : 000 -39 026 degrees QTc Int : 471 ms Accelerated Junctional rhythm Left axis deviation Inferior infarct , age undetermined Abnormal ECG Confirmed by BUZZ ROBISON ([id number]), script editor SVETLANA HARRISON ([id number]) on 05/11/2019 2:59:05 PM Referred By: ENRIQUETA Confirmed By:BUZZ ROBISON
== END 2019-04-30 14:52 ==
LOC: ERS 00:04 → 2NO 01:59
PROVIDERS: ADMIT Internal Medicine; ATTEND Internal Medicine
DX: R07.9 Chest pain, unspecified (principal); M54.9 Dorsalgia, unspecified; I11.0 Hypertensive heart disease with heart failure; I50.30 Unspecified diastolic (congestive) heart failure; N40.0 Benign prostatic hyperplasia without lower urinary tract symptoms; I48.91 Unspecified atrial fibrillation; I25.10 Atherosclerotic heart disease of native coronary artery without angina pectoris; E22.2 Syndrome of inappropriate secretion of antidiuretic hormone; R56.9 Unspecified convulsions; E03.9 Hypothyroidism, unspecified; D64.9 Anemia, unspecified; E46 Unspecified protein-calorie malnutrition; Z68.1 Body mass index [BMI] 19.9 or less, adult; Z79.82 Long term (current) use of aspirin; Z79.899 Other long term (current) drug therapy; Z88.0 Allergy status to penicillin; Z88.1 Allergy status to other antibiotic agents; Z88.2 Allergy status to sulfonamides; Z95.5 Presence of coronary angioplasty implant and graft
CPT/HCPCS: 71045 ×2; 80048; 80053; 83880; 83930; 83935; 84484 ×2; 85025; 85027; 93005; 96374; 96375 ×2; 97139; 99285; G0378 ×3; 36415; 36416; J1940; J2405; J3010

== ENCOUNTER 2019-05-24 20:16 | Inpatient (IN) | payer MEDICARE, BC ==
[~2019-05-24 20:16] MED LIST: Iopamidol-370 76% 500 ML 1 ML ONE
[2019-05-24] MEDS ORDERED: Morphine 4 MG/ML VIAL ONE (20:39)
[2019-05-24] MEDS ORDERED: Nitroglycerin 0.4 MG TAB 1 EACH ONE (20:39)
[2019-05-24] MEDS ORDERED: Nitroglycerin 2% Ointment 1 INCH/1 GM Packet ONE (20:39)
[2019-05-24] MEDS ORDERED: Ondansetron PF 4 MG/2 ML Vial ONE (20:39)
[2019-05-24 20:49] LABS: #Eosinphils 0.2 thou/uL (0.0-0.7); #Lymphocytes 1.8 thou/uL (1.20-3.40); #Monocytes 0.5 thou/uL (0.11-0.59); #Neutrophils 2.8 thou/uL (1.40-6.50); %Basophils 0.3 % (0.0-1.0); %Eosinophils 3.2 % (0.0-10.0); %Lymphocytes 34.2 % (21.0-51.0); %Monocytes 9.1 % (0.0-10.0); %Neutrophils 53.3 % (42.0-75.0); Hemoglobin 11.3 g/dL (14.0-18.0); Mean Corpuscular HGB CONC 33.7 g/dL (32.0-36.0); Mean Corpuscular Hemoglobin 33.7 pg (27.0-31.0); Mean Platelet Volume 7.2 fL (7.4-10.4); Platelet Count 227 thou/uL (130-400); RBC Distribution Width 11.8 % (11.5-14.5); Red Blood Cell (RBC) Count 3.35 mill/uL (4.70-6.10); White Blood Cell (WBC) Count 5.3 thou/uL (4.8-10.8)
--- NOTE | 2019-05-24 20:58 | RAD ---
Chest AP view INDICATION: Chest pain COMPARISON: Chest radiograph dated April 30, 2019 FINDINGS: Lungs:Chronic lung changes are stable. Nodular opacity within the right lung base persists. Small rig ht pleural effusion persists. Cardiac silhouette:Mild cardiomegaly is stable Pulmonary vasculature:Normal Pleural spaces:Small bilateral pleural effusions, right greater than left persists Upper abdomen:No abnormality seen. Osseous structures: No acute osseous abnormality. Additional findings:None. IMPRESSION: Stable examination. Small bilateral pleural effusions, right greater than left persists. Nodular opacity within the right lung base is stable. Chronic lung changes and mild cardiomegaly is stable.
[2019-05-24 21:10] LABS: ALT (SGPT) 14 U/L (8-55); AST (SGOT) 18 U/L (5-34); Albumin 3.7 g/dL (3.4-4.8); Alkaline Phosphatase 71 U/L (40-110); Anion Gap 10 mmol/L (10-20); BUN (Urea Nitrogen) 10 mg/dL (8.4-25.7); Bilirubin, Total 1.3 mg/dL (0.2-1.2); CK (CPK) 33 U/L (30-200); Calc. Creatinine Clearance 0 mL/min (70-130); Calcium 8.4 mg/dL (7.8-10.44); Carbon Dioxide 31 mmol/L (23-31); Chloride 94 mmol/L (98-107); Estimated GFR-MDRD 70; Globulin 2.8 g/dL (2.4-3.5); Glucose 149 mg/dL (83-110); Potassium 3.5 mmol/L (3.5-5.1); Protein, Total 6.5 g/dL (5.8-8.1); Sodium 131 mmol/L (136-145)
--- NOTE | 2019-05-24 21:22 | CT ---
CTA OF THE CHEST AND ABDOMEN UTILIZING AN AORTIC DISSECTION PROTOCOL AND 3-D REFORMATTED IMAGING INDICATION: Severe chest pain COMPARISON: CTA of the chest dated March 17, 2019 FINDINGS: Aorta: No acute aortic stenosis, occlusion or aneurysmal formation demonstrated. Central pulmonary artery: No central pulmonary embolus demonstrated. Additional thorax findings: The rounded opacity within the lateral segment of the right middle lobe a djacent to the right major fissure is decreased in size now measuring 2.9 x 1.7 cm were previously it measured 3.6 x 2.5 cm and is most suspicious for an area of rounded atelectasis. There is subsegme ntal atelectasis involving both lower lobes. There is small bilateral pleural effusions. There is moderate cardiomegaly. There is fluid distention in the esophagus which may related to dysmotility or reflux. Additional abdominal findings: There is a peg catheter within the lumen of the gastric antrum. There are layered gallstones within the gallbladder. Adrenal glands are normal appearing. Osseous structures: There is diffuse osteopenia. No acute fracture is demonstrated. There is scattere d degenerative and osteoarthritic change present. IMPRESSION: 1. No appreciable aortic stenosis, occlusion or aneurysmal formation demonstrated. 2. Small bilateral pleural effusions with bibasilar atelectasis. 3. The nodular opacity within the right middle lobe seen on the prior examination has decreased in si ze is most consistent with an area of rounded atelectasis. 4. Fluid distention of the esophagus may reflect dysmotility or reflux. 5. PEG catheter 6. Cholelithiasis
[2019-05-25 00:45] LABS: Troponin I Less than 0.010 ng/mL (< 0.028)
[2019-05-25] MEDS: Nitroglycerin 2% Ointment 1 INCH/1 GM Packet TOP SCH ×2 (04:25→08:55)
[2019-05-25 05:21] LABS: Troponin I Less than 0.010 ng/mL (< 0.028)
[2019-05-25] MEDS ORDERED: Bisacodyl 5 MG TAB PO PRN (08:27)
[2019-05-25] MEDS ORDERED: Ondansetron PF 4 MG/2 ML Vial IVP PRN (08:27)
[2019-05-25] MEDS ORDERED: Acetaminophen 325 MG TAB PO PRN (08:27)
[2019-05-25] MEDS: Famotidine 20 MG TAB PO SCH ×2 (08:50→20:23)
[2019-05-25] MEDS: Potassium Chloride 10 MEQ TAB PO SCH (08:51)
[2019-05-25] MEDS ORDERED: levETIRAcetam 500 mg/5 ml Oral Solution PO SCH (09:00)
[2019-05-25] MEDS ORDERED: levETIRAcetam 500 MG TAB PO SCH (09:00)
[2019-05-25] MEDS ORDERED: Levothyroxine Sodium 125 MCG TAB PO SCH (09:00)
[2019-05-25] MEDS ORDERED: Furosemide 40 MG TAB PO SCH (09:00)
[2019-05-25] MEDS ORDERED: Furosemide 20 MG TAB PO SCH (09:00)
[2019-05-25] MEDS ORDERED: Non-Formulary Item 1 EACH (Omeprazole [Omeprazole] 20 MG) PO SCH (09:00)
[2019-05-25] MEDS ORDERED: Regadenoson 0.4 MG/5 ML SYRINGE ONE (13:13)
--- NOTE | 2019-05-25 13:37 | NM ---
CARDIAC SPECT WITH EF AND WALL MOTION: HISTORY: Chest pain. History of coronary artery disease. Prior catheterization. Stent placement. TECHNIQUE: This IS A Lexiscan sestamibi study. The patient was injected with 27 millicuries technetium 99m sestamibi intravenously for stress images . The patient was injected with 9.4 millicuries technetium 99m sestamibi intravenously for rest image s. FINDINGS: Multiple SPECT images in the short axis, vertical long axis and horizontal long axis demonstrate no e vidence for infarct or ischemia. TID: 1.09 LHR: 0.53 EDV: 84 mL EF: 59% MYOCARDIAL PERFUSION WALL MOTION: No significant focal wall motion abnormality. IMPRESSION: Unremarkable cardiac SPECT with ejection fraction and wall motion. POS: JAIME
--- NOTE | 2019-05-25 15:26 | PDOC.HHP ---
Hospitalist HPI - History of Present Illness Epigastric pain History of Present Illness: 88-year-old gentleman with the past medical history of seizure disorder, aspiration pneumonia with chronic feeding tube, atrial fibrillation, coronary artery disease, hypertension, BPH, diastolic congestive heart failure, and Enterococcus faecalis urinary tract infections presents with epigastric discomfort. Patient is chronic resident of nursing facility and was sent over for chest pain. Upon my questioning of the patient he is not actually been suffering from any chest pain but more epigastric discomfort. Patient chronically has feeding tube and has been working with speech therapy over the past several weeks. Patient has been progressing on his diet and for two weeks he has been eating more regular foods. On the day of admission he was given the most food that he has eaten in over two months, per his at bedside. With this larger quantity of food he was having some epigastric discomfort likely from stomach being stretched. At the time I evaluated the patient he is breathing comfortably on room air. Denies chest pain. No abdominal pain. States that he is feeling hungry. His only request is that I will send him home. With the presumptive diagnosis of chest pain a nuclear medicine stress test was ordered and found to be negative for reversible ischemia. We will advance the patient's diet to those recommended by speech therapist who have been working with him on his prior admissions here. Hospitalist ROS - Review of Systems All other systems reviewed; all pertinent +/- noted in HPI/Subj - Medication Medications: Active Medications Generic Name Dose Route Start Last Admin Trade Name Freq PRN Reason Stop Dose Admin Famotidine 20 mg 05/25/19 09:00 05/25/19 08:50 Pepcid PO 20 mg BID DONALD Administration Furosemide 40 mg 05/25/19 09:00 05/25/19 13:35 Lasix PO 40 mg DAILY DONALD Administration Levetiracetam 500 mg 05/25/19 09:00 05/25/19 08:51 Keppra PO 500 mg BID DONALD Administration Pantoprazole Sodium 40 mg 05/25/19 09:00 05/25/19 08:50 Protonix PO 40 mg DAILY DONALD Administration Potassium Chloride 10 meq 05/25/19 09:00 05/25/19 08:51 Klor-Con 10 PO 10 meq DAILY DONALD Administration Sodium Chloride 10 ml 05/25/19 09:00 05/25/19 08:51 Flush - Normal Saline IVF 10 ml Q12HR DONALD Administration Hospitalist History - Past Medical History Source: patient, family, old records Cardiac: reports: AFIB, CAD, CHF, HTN Pulmonary: reports: pneumonia, previously intubated Heme/Onc: reports: Anemia NOS Renal/: reports: Benign prostatic enlarg. Endocrine: reports: Hypothyroidism, Other (SIADH) - Family History Family History: reports: hypertension - Social History Smoking Status: Never smoker Alcohol: reports: None, Occassional Drugs: reports: none Living Situation: Long Term Domestic Violence: Negative Activity level: wheelchair bound - Exam General Appearance: NAD, awake alert Eye: anicteric sclera ENT: normocephalic atraumatic, moist mucosa Neck: supple, symmetric, no lymphadenopathy Heart: no murmur, no gallops, no rubs, normal peripheral pulses Respiratory: CTAB, no wheezes, no rales, no ronchi, normal chest expansion Gastrointestinal: soft, non-tender, non-distended, no palpable masses, no guarding, no rigidity Gastrointestinal - other findings: Feeding tube in position Extremities: no edema Skin: no lesions, no rashes Neurological: cranial nerve grossly intact, no focal deficits Musculoskeletal: generalized weakness Psychiatric: oriented to person, oriented to place, flat affect. negative: oriented to time Hospitalist Results - Labs Result Diagrams: 05/24/19 20:41 05/24/19 20:41 Lab results: WBC 5.3 thou/uL (4.8-10.8) 05/24/19 20:41 Hgb 11.3 g/dL (14.0-18.0) L 05/24/19 20:41 Hct 33.6 % (42.0-52.0) L 05/24/19 20:41 MCV 100.0 fL (78.0-98.0) H 05/24/19 20:41 Plt Count 227 thou/uL (130-400) 05/24/19 20:41 Neutrophils % 53.3 % (42.0-75.0) 05/24/19 20:41 Sodium 131 mmol/L (136-145) L 05/24/19 20:41 Potassium 3.5 mmol/L (3.5-5.1) 05/24/19 20:41 Chloride 94 mmol/L (98-107) L 05/24/19 20:41 Carbon Dioxide 31 mmol/L (23-31) 05/24/19 20:41 BUN 10 mg/dL (8.4-25.7) 05/24/19 20:41 Creatinine 1.01 mg/dL (0.7-1.3) 05/24/19 20:41 Glucose 149 mg/dL (83-110) H 05/24/19 20:41 Calcium 8.4 mg/dL (7.8-10.44) 05/24/19 20:41 Total Bilirubin 1.3 mg/dL (0.2-1.2) H 05/24/19 20:41 AST 18 U/L (5-34) 05/24/19 20:41 ALT 14 U/L (8-55) 05/24/19 20:41 Alkaline Phosphatase 71 U/L (40-110) 05/24/19 20:41 Creatine Kinase 33 U/L (30-200) 05/24/19 20:41 Troponin I Less than 0.010 ng/mL (< 0.028) 05/25/19 04:23 B-Natriuretic Peptide 80.8 pg/mL (0-100) 05/24/19 20:41 Serum Total Protein 6.5 g/dL (5.8-8.1) 05/24/19 20:41 Albumin 3.7 g/dL (3.4-4.8) 05/24/19 20:41 - Radiology Interpretation Other Status: image reviewed by ia Hospitalist H&P A/P - Problem (1) Chest pain Code(s): R07.9 - CHEST PAIN, UNSPECIFIED Status: Acute (2) Epigastric pain Code(s): R10.13 - EPIGASTRIC PAIN Status: Acute (3) Dysphagia Code(s): R13.10 - DYSPHAGIA, UNSPECIFIED Status: Acute (4) Atrial fibrillation Code(s): I48.91 - UNSPECIFIED ATRIAL FIBRILLATION Status: Chronic - Plan Plan: Plan: medical unit with telemetry continuous telemetry to monitor for arrhythmia nuclear medicine stress test negative for reversible ischemia patient's story consistent with epigastric discomfort from large oral intake after a prolonged period of not eating, his stomach is stretching and causing epigastric discomfort abdomen is soft, nontender, nondistended and there is no acute findings feeding tube in position, resume tube feedings as bia continue home medications as able blood pressure control blood sugar control G.I. prophylaxis DVT prophylaxis
[2019-05-25] MEDS: levETIRAcetam 500 mg/5 ml Oral Solution PO SCH (20:23)
[2019-05-25] MEDS: Loratadine 10 MG TAB PO SCH (20:23)
[2019-05-25] MEDS ORDERED: Aspirin 81 mg Enteric Coated Tablet PO SCH (21:00)
[2019-05-25] MEDS ORDERED: Mag-Al 1200 mg/1200 mg/30 ML UDCUP PO PRN (21:21)
[2019-05-25] MEDS ORDERED: Metoclopramide HCl 10 MG/2 ML VIAL IVP SCH (21:30)
--- NOTE | 2019-05-26 03:44 | PDOC.EVN ---
Event Note - Event Note Event Note: RN called - Pt c/o epigastric pain. Also had emesis - yellow tube feeds. Also mild SOB. PLAN: CXR - r/o Aspiration Hold TF Update: CXR - reviewed Pt in SVT with HR in 130s. Will hold Cardizem drip due to hypotension. Will get cultures and start Empiric Atbx due to Sepsis Will get Abd imaging with Contrast
[2019-05-26] MEDS ORDERED: Sodium Chloride 0.9% (PF) 10 ML VIAL FS PRN (03:56)
[2019-05-26] MEDS ORDERED: Pantoprazole 40 MG VIAL IVP SCH (04:00)
[2019-05-26] MEDS ORDERED: Metoclopramide HCl 10 MG/2 ML VIAL IVP SCH (04:00)
[2019-05-26] MEDS: Levothyroxine 150 MCG TAB PO SCH (04:34)
[2019-05-26 05:53] LABS: Hemoglobin 12.8 g/dL (14.0-18.0); Mean Corpuscular HGB CONC 31.2 g/dL (32.0-36.0); Mean Corpuscular Hemoglobin 31.1 pg (27.0-31.0); Mean Corpuscular Volume 99.7 fL (78.0-98.0); Platelet Count 214 thou/uL (130-400); Red Blood Cell (RBC) Count 4.12 mill/uL (4.70-6.10); White Blood Cell (WBC) Count 1.4 thou/uL (4.8-10.8)
[2019-05-26] MEDS ORDERED: Diltiazem 125 MG in Sodium Chloride 0.9% 100 ML IVPB SCH (06:00)
[2019-05-26 06:16] LABS: ALT (SGPT) 11 U/L (8-55); AST (SGOT) 19 U/L (5-34); Alkaline Phosphatase 77 U/L (40-110); Anion Gap 22 mmol/L (10-20); BUN (Urea Nitrogen) 16 mg/dL (8.4-25.7); Bilirubin, Total 2.8 mg/dL (0.2-1.2); Calc. Creatinine Clearance 36 mL/min (70-130); Calcium 8.9 mg/dL (7.8-10.44); Carbon Dioxide 26 mmol/L (23-31); Chloride 91 mmol/L (98-107); Estimated GFR-MDRD 54; Glucose 138 mg/dL (83-110); Lipase 28 U/L (8-78); Magnesium 1.3 mg/dL (1.6-2.6); Phosphorus 3.3 mg/dL (2.3-4.7); Potassium 3.5 mmol/L (3.5-5.1); Sodium 135 mmol/L (136-145)
[2019-05-26 06:29] LABS: Band 40 % (5-11); Lymphocytes 13 % (21-51); MDiff Complete? YES; Metamyelocyte 2 % (0-0); Monocytes 3 % (0-10); Neutrophil 42 % (42-75)
[2019-05-26 06:35] LABS: CKMB 0.5 ng/mL (0-6.6)
[2019-05-26] MEDS ORDERED: Acetaminophen 650 MG Suppository PR PRN (06:44)
[2019-05-26] MEDS ORDERED: Magnesium Sulfate 4 GM in Sodium Chloride 0.9% 250 ML 250 ML IVPB SCH (06:45)
[2019-05-26] MEDS ORDERED: Vancomycin HCl 1 GM in Premix Bag 1 BAG IVPB SCH (06:45)
[2019-05-26] MEDS ORDERED: Sodium Chloride 0.9% 250 ML IV SCH (06:45)
[2019-05-26] MEDS ORDERED: Dextrose 5 % And 0.9 % NaCl 1,000 ML IV SCH (06:45)
[2019-05-26] MEDS ORDERED: Meropenem 1 GM in Sodium Chloride 0.9% 100 ML IVPB SCH (06:45)
[2019-05-26 08:08] LABS: Lactic Acid 5.8 mmol/L (0.5-2.2)
--- NOTE | 2019-05-26 08:33 | RAD ---
CHEST ONE VIEW: HISTORY: Shortness of breath. History of congestive heart failure. COMPARISON: 05/24/2019 FINDINGS: Small bilateral pleural effusions. Patchy parenchymal changes, somewhat confluent in the right lower lobe. Minimal hyperinflation and chronic lung changes. Stable appearance from prior exam. IMPRESSION: Bilateral pleural effusions and bibasilar parenchymal changes, more dense and confluent in the right lower lobe, concerning for pneumonia. Overall stable chest. POS: BAN
[2019-05-26] MEDS: Vancomycin HCl 1 GM in Premix Bag 1 BAG IVPB SCH (08:56)
[2019-05-26] MEDS ORDERED: Pantoprazole 40 MG GRANULES PACKET PO SCH (09:00)
[2019-05-26] MEDS: Pantoprazole 40 MG VIAL IVP SCH (09:01)
[2019-05-26] MEDS: MEROPENEM 1 GM/50 ML 1 GM in Premix Bag 1 BAG IVPB SCH ×2 (09:16→21:34)
--- NOTE | 2019-05-26 09:59 | ULT ---
RIGHT UPPER QUADRANT ULTRASOUND: HISTORY: Nausea. Vomiting. Cholelithiasis with concern for acute cholecystitis. FINDINGS: Multiple gallstones are noted in the gallbladder without overt gallbladder wall thickening or pericho lecystic fluid. Negative Babin sign. Liver echogenicity is slightly coarse. Common bile duct is 0.4 cm. Visualized pancreas and right kidney are unremarkable. No abscess or abnormal fluid collection. IMPRESSION: Multiple cholelithiasis. No gallbladder wall thickening or pericholecystic fluid. Negative Babin sig n. There is also associated sludge within the gallbladder. POS: BANH
--- NOTE | 2019-05-26 12:28 | PDOC.HOSPP ---
- Subjective Subjective: Seen and examined this a.m. on the medical unit with telemetry and then later again in the intensive care unit. Patient talking in full sentences. Patient did have low blood pressure requiring bolus. Tachycardia. Patient with drop in WBC count suggesting sepsis. Patient with chest x-ray with right lower lobe infiltrate concerning for aspiration pneumonia. He has been placed on antibiotics. Strict NPO. - Objective Vital Signs & Weight: Vital Signs (12 hours) Temp Pulse Resp BP BP Pulse Ox 05/26/19 12:00 97.8 F 05/26/19 10:00 97.9 F 05/26/19 07:09 126 H 32 H 85/50 L 99 05/26/19 06:42 100.2 F H 125 H 35 H 91/54 L 95 05/26/19 06:39 91 L 05/26/19 06:16 126 H 36 H 78/49 L 93 L 05/26/19 05:15 98.5 F 145 H 91 L 05/26/19 04:33 94 L 05/26/19 04:09 122 H 115/59 L 86 L 05/26/19 02:25 98.8 F 104 H 21 H 122/68 96 Weight Weight 133 lb 8 oz Most Recent Monitor Data Heart Rate from ECG 101 NIBP 91/53 NIBP BP-Mean 65 Respiration from ECG 18 SpO2 93 I&O: 05/25/19 05/26/19 05/27/19 06:59 06:59 06:59 Intake Total 676 547 8872 Output Total 1000 1175 Balance -760 -623 1510 Result Diagrams: 05/26/19 05:42 05/26/19 05:42 Radiology Reviewed by me: Yes Hospitalist ROS - Review of Systems All other systems reviewed; all pertinent +/- noted in HPI/Subj - Medication Medications: Active Medications Generic Name Dose Route Start Last Admin Trade Name Freq PRN Reason Stop Dose Admin Acetaminophen 650 mg 05/26/19 06:44 05/26/19 06:55 Tylenol UT 650 mg Q4H PRN Administration Headache/Fever or Pain Meropenem 1 gm/ Device 50 mls @ 200 mls/hr 05/26/19 09:00 05/26/19 09:16 IVPB 50 mls Q12HR DONALD Administration Vancomycin HCl 1 gm/ Device 200 mls @ 200 mls/hr 05/26/19 08:00 05/26/19 08: 56 IVPB 200 mls 0800 DONALD Administration Dextrose/Sodium Chloride 1,000 mls @ 75 mls/hr 05/26/19 06:45 05/26/19 06:57 D5 0.9% Ns IV 1,000 mls .[id number] DONALD Administration Levetiracetam 500 mg 05/25/19 21:00 05/25/19 20:23 Keppra Oral Solution PO 500 mg BID DONALD Administration Levothyroxine Sodium 150 mcg 05/26/19 06:00 05/26/19 04:34 Synthroid PO Not Given 0600 DONALD Loratadine 10 mg 05/25/19 21:00 05/25/19 20:23 Claritin PO 10 mg HS DONALD Administration Ondansetron HCl 4 mg 05/25/19 08:27 05/26/19 03:18 Zofran IVP 4 mg Q6H PRN Administration Nausea/Vomiting Pantoprazole Sodium 40 mg 05/26/19 09:00 05/26/19 09:01 Protonix IVP 40 mg DAILY DONALD Administration Potassium Chloride 10 meq 05/25/19 09:00 05/25/19 08:51 Klor-Con 10 PO 10 meq DAILY DONALD Administration Sodium Chloride 10 ml 05/25/19 09:00 05/26/19 10:48 Flush - Normal Saline IVF Not Given Q12HR DONALD Sodium Chloride 10 ml 05/25/19 08:29 05/26/19 04:10 Flush - Normal Saline IVF 10 ml PRN PRN Administration Saline Flush - Exam General Appearance: NAD, awake alert Eye: anicteric sclera ENT: normocephalic atraumatic, moist mucosa Neck: supple, symmetric, no lymphadenopathy Heart: no murmur, no gallops, no rubs, normal peripheral pulses Respiratory: no rales, normal chest expansion, no tachypnea, rhonchi (right), wheezes (right) Gastrointestinal: soft, non-tender, non-distended, no guarding, no rigidity Gastrointestinal - other findings: Peg tube in position Extremities: no edema Skin: no lesions, no rashes Neurological: cranial nerve grossly intact, no focal deficits Musculoskeletal: generalized weakness Psychiatric: normal affect, normal behavior, A&O x 3 Psychiatric - other findings: Hard of hearing Hosp A/P (1) Chest pain Code(s): R07.9 - CHEST PAIN, UNSPECIFIED Status: Acute (2) Epigastric pain Code(s): R10.13 - EPIGASTRIC PAIN Status: Acute (3) Dysphagia Code(s): R13.10 - DYSPHAGIA, UNSPECIFIED Status: Acute (4) Atrial fibrillation Code(s): I48.91 - UNSPECIFIED ATRIAL FIBRILLATION Status: Chronic - Plan Plan: upgrade to the intermediate medical care floor start broad-spectrum antibiotics blood culture de-escalate to culture and sensitivity as able chest x-ray with right lower lobe infiltrate concerning for aspiration pneumonia patient when hospitalized was strict NPO, however he was being fed in [facility] facilities and likely having aspiration CT scan of the abdomen and pelvis nuclear medicine stress test has been negative for reversible ischemia mildly elevated cardiac enzymes secondary to tachycardia, demand continue other home medications as able caution with volume overload, though with low blood pressure he has received several bolus G.I. prophylaxis DVT prophylaxis
[2019-05-26] MEDS ORDERED: Iopamidol 370 76% 50 ML VIAL FS ONE (15:06)
[2019-05-26] MEDS ORDERED: Iopamidol-370 76% 500 ML 1 ML ONE (15:06)
[2019-05-26] MEDS: Potassium Chloride 10 MEQ TAB PO SCH (15:50)
[2019-05-26] MEDS: levETIRAcetam 500 mg/5 ml Oral Solution PO SCH ×2 (15:50→22:17)
--- NOTE | 2019-05-26 17:30 | CT ---
CT OF THE ABDOMEN AND PELVIS WITH IV CONTRAST INDICATION: Sepsis with abdominal pain COMPARISON: CT aortic dissection protocol dated May 24, 2019 FINDINGS: ABDOMEN: Lung bases: There is bilateral lower lobe, lingula and right middle lobe airspace consolidation suspi cious for pneumonia or aspiration. There are small bilateral pleural effusions Liver: No focal lesion. Gallbladder: Stable cholelithiasis Pancreas: Normal. Adrenal glands: Normal. Spleen: Normal. Kidneys and ureters: Normal. No hydronephrosis. Vasculature: There are mild vascular calcifications seen involving the visualized vasculature. Lymph nodes:No lymphadenopathy. Free fluid in abdomen:No free fluid is evident. PELVIS: Small and large bowel: There is a stable PEG catheter within the stomach. There is mild fluid distent ion of portions of the ascending colon and transverse colon with more formed stool seen within the sigmoid colon, descending colon and rectum. Small bowel is of normal caliber. Appendix:Not definitely seen Bladder: Moderately distended with some residual contrast within the bladder likely from the prior CT A examination dated May 24, 2019 Rectal and perirectal soft tissues:Normal. Reproductive structures: Prostate enlargement measuring 5.4 cm Free fluid in pelvis: No free fluid is evident. Lymphadenopathy pelvis: No lymphadenopathy is evident. Osseous structures: There is diffuse osteopenia. No acute fracture or subluxation demonstrated. Ther e is scattered degenerative and osteoarthritic changes. Soft tissues:There is a right inguinal hernia containing unobstructed loop of small bowel. IMPRESSION: 1. Bibasilar airspace consolidation suspicious for pneumonia or aspiration. 2. Stable cholelithiasis 3. Mild fluid distention of the ascending colon and transverse colon can be seen with mild diarrheal states or a mild colitis. 4. Right inguinal hernia containing unobstructed loops of small bowel. 5. Prostate enlargement
[2019-05-26] MEDS: Dextrose 5 % And 0.9 % NaCl 1,000 ML IV SCH (18:22)
[2019-05-26 18:50] LABS: Bacteria/HPF None Seen HPF (None Seen); Bilirubin Negative (Negative); Blood, Urine Negative (Negative); Clarity Turbid (Clear); Glucose, Urine (Dipstick) Normal (Negative); Leukocyte Negative Leu/uL (Negative); Nitrite Negative (Negative); Protein, Urine (Dipstick) 20 mg/dL (Neg-Trace); RBC/HPF 0-3 HPF (0-3); Squamous Epithelial 0-3 HPF (0-3); Urobilinogen Normal mg/dL (Less than 2); WBC/HPF 0-3 HPF (0-3)
[2019-05-26 18:53] LABS: Urine Culture Reflex No No
[2019-05-26] MEDS: Aspirin Chewable 81 MG TAB PO SCH (21:34)
[2019-05-26] MEDS: Loratadine 10 MG TAB PO SCH (21:34)
--- NOTE | 2019-05-27 00:39 | CON ---
DATE OF CONSULTATION: 05/26/2019 CHIEF COMPLAINT: Abdominal pain. HISTORY OF PRESENT ILLNESS: Mr. Koenig presented to the emergency room the evening of 05/24/2019, with some epigastric pain. He had a CT dissection protocol and a nuclear stress test, which were negative. He had an abdominal ultrasound that showed gallstones. He had a CT scan of the abdomen and pelvis, which showed signs of pneumonia in the lower lung kellogg. The patient was thought to have aspiration as his oral feeding was advanced. The patient just had PEG tube placed back in early March for aspiration. Today, he reports that he has had no abdominal pain. He has not had a bowel movement since he was admitted. His tube feeds have been held, however. PAST MEDICAL HISTORY: Atrial fibrillation, coronary artery disease, CHF, hypertension, stroke, BPH, hypothyroidism, and pneumonia. PAST SURGICAL HISTORY: Coronary stent, ablation for atrial fibrillation, lung decortication, and tonsillectomy. FAMILY HISTORY: Negative for GI malignancy. SOCIAL HISTORY: Prior daily alcohol use before the previous admission. No smoking. No drugs. ALLERGIES: 1. AZITHROMYCIN. 2. CEPHALEXIN. 3. DOXYCYCLINE. 4. LEVOFLOXACIN. 5. PENICILLIN. 6. SULFA. MEDICATIONS: Current inpatient medications include, 1. Aspirin. 2. Levothyroxine. 3. Levetiracetam. 4. Meropenem. 5. Pantoprazole. 6. Vancomycin. REVIEW OF SYSTEMS: Negative x10 systems reviewed, except as stated in the history of present illness. PHYSICAL EXAMINATION: VITAL SIGNS: Pulse 107, blood pressure 99/57, and temperature 98.3. GENERAL: He is in no acute distress. He is awake, alert, and interactive. HEENT: His eyes have no scleral icterus. Oropharynx is clear without lesions. He has dry mucous membranes. NECK: No cervical or supraclavicular lymphadenopathy. LUNGS: Clear to auscultation bilaterally. HEART: Regular rate and rhythm without murmur. ABDOMEN: Soft, nontender, and nondistended. Bowel sounds are present. His gastrostomy site appears healthy. The external bumper is at 3 cm and is loose, appears to be in good position. EXTREMITIES: No lower extremity edema. IMPRESSION: 1. Epigastric abdominal pain. This appears to be resolved at this point. He has not had a bowel movement for last couple of days, but his feeds have been held. If his abdominal pain returns, then Dulcolax suppository or Fleet enema could be given. 2. Apparent aspiration pneumonia. He was advancing his oral intake over the last couple of weeks prior to admission and this can be re-evaluated by Speech Pathology for aspiration. For now, he is n.p.o. and will restart his PEG tube feeds. 3. Cholelithiasis. This appears to be asymptomatic. 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 RECOMMENDATIONS: 1. Restart tube feeds. 2. Speech Pathology can evaluate the patient to establish when resumption of oral intake could be considered. 3. If his abdominal pain returns, consider Dulcolax suppository or Fleet enema. 4. I will sign off. Please call if GI can be of assistance. Job ID: [id number]
[2019-05-27 04:36] LABS: Anion Gap 13 mmol/L (10-20); BUN (Urea Nitrogen) 24 mg/dL (8.4-25.7); Calc. Creatinine Clearance 38 mL/min (70-130); Calcium 7.9 mg/dL (7.8-10.44); Carbon Dioxide 25 mmol/L (23-31); Chloride 100 mmol/L (98-107); Estimated GFR-MDRD 59; Glucose 77 mg/dL (83-110); Magnesium 2.1 mg/dL (1.6-2.6); Potassium 3.3 mmol/L (3.5-5.1); Sodium 135 mmol/L (136-145)
[2019-05-27 05:17] LABS: Band 36 % (5-11); Eosinophils 1 % (0-10); Hemoglobin 11.4 g/dL (14.0-18.0); Lymphocytes 13 % (21-51); MDiff Complete? YES; Mean Corpuscular HGB CONC 32.5 g/dL (32.0-36.0); Mean Corpuscular Hemoglobin 32.7 pg (27.0-31.0); Mean Platelet Volume 8.6 fL (7.4-10.4); Metamyelocyte 8 % (0-0); Monocytes 5 % (0-10); Myelocyte 4 % (0-0); Neutrophil 33 % (42-75); Platelet Count 133 thou/uL (130-400); RBC Distribution Width 12.1 % (11.5-14.5); White Blood Cell (WBC) Count 6.7 thou/uL (4.8-10.8)
[2019-05-27] MEDS: Levothyroxine 150 MCG TAB PO SCH (05:34)
[2019-05-27] MEDS: Dextrose 5 % And 0.9 % NaCl 1,000 ML IV SCH ×3 (05:35→17:21)
--- NOTE | 2019-05-27 06:27 | CON ---
DATE OF CONSULTATION: 05/26/2019 SERVICE: Pulmonary Medicine. REASON FOR CONSULTATION: ICU patient. HISTORY OF PRESENT ILLNESS: The patient is an 88-year-old white male with past medical history significant for epigastric discomfort. He had not been eating very much recently. He has chronic aspiration and primarily relies on a feeding tube. That being said, the intake has been decreased recently. He came to the hospital with this complaint of epigastric discomfort. He was not having any fevers, chills, sputum production, nausea, vomiting, or diarrhea. He was placed in observation and found to have a tachyarrhythmia. He was given some Cardizem, and his blood pressure dropped dramatically. As such, he was given a bolus of fluid. He is brought to the ICU. The patient cannot really provide any reliable history at this point. PAST MEDICAL HISTORY: 1. Atrial fibrillation. 2. Coronary artery disease. 3. Chronic diastolic heart failure. 4. Hypertension. 5. Anemia. 6. BPH. 7. Hypothyroidism. 8. Syndrome of inappropriate ADH secretion. 9. Seizure disorder. 10. History of aspiration-related pneumonias. 11. Tube feed placement. PAST SURGICAL HISTORY: 1. Ablation for atrial fibrillation. 2. Percutaneous coronary intervention. 3. Left lung decortication secondary to hemothorax from being on Coumadin. 4. Tonsillectomy. FAMILY HISTORY: Noncontributory. SOCIAL HISTORY: He is a lifelong nonsmoker. He previously drank two beers and vodka on a daily basis. Denies any illicit drugs. He has no exposure to chemicals, dust, asbestos, or tuberculosis otherwise. ALLERGIES: AZITHROMYCIN, KEFLEX, DOXYCYCLINE, LEVAQUIN, PENICILLINS, AND SULFA. MEDICATIONS: List of his inpatient medications was reviewed. No specific updates were made at this time. REVIEW OF SYSTEMS: General; head, ears, eyes, nose, throat; cardiovascular; respiratory; GI; ; musculoskeletal; neurologic; and skin are negative except as mentioned in the HPI. PHYSICAL EXAMINATION: VITAL SIGNS: Afebrile with a T-max of 100.2. Pulse 73, blood pressure 103/58, respirations 16, and saturation 98%, currently on room air. GENERAL: The patient is awake and alert. He is in no apparent distress. LUNGS: Good air entry bilaterally. No crackles or rhonchi appreciated. HEART: Normal rate and regular. ABDOMEN: Soft. Epigastric tenderness is minimal. There is no rebound or guarding. MUSCULOSKELETAL: No cyanosis or clubbing. There is no pitting in the bilateral lower extremities. He has skin tenting throughout. NEUROLOGIC: Grossly nonfocal. LABORATORY DATA: WBC 1.4, hemoglobin 12.8, and platelets 214,000. Band count 40% on top of 42% neutrophils. He did not have a left shift on presentation. Lactate 5.8. Basic metabolic profile is otherwise unremarkable. Magnesium 1.3, total bilirubin 2.8. AST, ALT, and alkaline phosphatase, however, are unremarkable. Troponin is gently up trending to 0.029. Cortisol level is more than adequate. IMAGIN. CT of the abdomen and pelvis demonstrates airspace consolidation suspicious for aspiration related disease. Cholelithiasis without evidence of obstruction. Fluid distention of the ascending and transverse colon, possibly consistent with mild colitis. Right inguinal hernia without obstructive loops of small bowel. Prostate enlargement. 2. Abdominal ultrasound demonstrates multiple cholelithiasis without evidence of common bile duct dilation. Negative sonographic Babin sign. 3. Chest x-ray demonstrates bilateral pleural effusions and bibasilar parenchymal changes. 4. Stress test demonstrates negative evidence of ischemic heart disease. 5. CT dissection protocol demonstrates bilateral pleural effusions with bibasilar atelectasis. On this study, there were infiltrates present, but not nearly to the extent on the repeat CT. ASSESSMENT: 1. Acute hypoxic respiratory failure. 2. Severe sepsis. 3. Healthcare-acquired pneumonia. 4. Urine retention on CT scan. 5. Possible colitis. 6. 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 DISCUSSION AND PLAN: I will check a lipase, replace magnesium. I will empirically initiate some antibiotics. My suspicion is that his tachyarrhythmia on presentation was more likely to represent sinus tachycardia secondary to physiologic demands. His heart rate seemed to come down immediately with several boluses of fluids. I will put a Steinberg catheter, and we will send off a specimen, I will also get blood cultures x2. There was a clear infiltrate on the chest. This was not nearly as extensive until overnight making me suspect that he had significant aspiration event. Pulmonary/Critical Care will continue to follow very closely. 70 minutes have been devoted to this patient in various activities. I personally reviewed all imaging studies and laboratory data noted within this document. For fifty percent of this time, I was interacting with the patient at the bedside or coordinating care with the care team. For the remainder of the time I was immediately available to the patient in the hospital unit. Job ID: [id number] MTDD
[2019-05-27] MEDS ORDERED: Potassium Chloride 20 MEQ TAB PO SCH (08:15)
--- NOTE | 2019-05-27 08:34 | PRG ---
DATE OF SERVICE: 05/27/2019 SUBJECTIVE: The patient is doing reasonably well. He is extremely demented and does not remember me. PHYSICAL EXAMINATION: VITAL SIGNS: Temperature 98.9, pulse 110, blood pressure 106/59, O2 saturation 100%. HEENT: Unremarkable. NECK: No adenopathy or JVD. LUNGS: Clear but distant breath sounds. CARDIAC: S1 and S2, regular. ABDOMEN: Thin, PEG tube noted. EXTREMITIES: Severe muscle wasting. LABORATORY DATA: White blood cell count 6.7, hematocrit 35.2, and platelet count 133. Sodium 135, potassium 3.3, chloride 100, CO2 of 25, BUN 24, creatinine 1.1, glucose 77. ASSESSMENT: 1. Severe dementia with debilitation. 2. Sepsis. 3. Healthcare acquired pneumonia. 4. Possible colitis. PLAN: He looks to be near his baseline. He seems to be responding to the antibiotics. He needs to have his potassium supplement a little more. Probably could transfer to the medical unit from my standpoint. Job ID: [id number]
[2019-05-27] MEDS ORDERED: Loperamide HCl 2 MG CAP PO PRN (08:49)
[2019-05-27] MEDS ORDERED: Bisacodyl 10 MG SUPP PR PRN (08:49)
[2019-05-27] MEDS ORDERED: Diabetic Tussin 200 MG/10 ML UDCUP PO PRN (08:49)
[2019-05-27] MEDS ORDERED: hydrALAZINE 20 MG/ML VIAL SLOW IVP PRN (08:49)
[2019-05-27] MEDS ORDERED: Senokot S 8.6-50 MG TAB PO PRN (08:49)
[2019-05-27] MEDS ORDERED: Sodium Chloride 0.65% Nasal 44 ML BOT EA NARE PRN (08:49)
[2019-05-27] MEDS ORDERED: Artificial Tears 18 DROP/0.9 ML EA EYE PRN (08:49)
[2019-05-27] MEDS ORDERED: Cepastat Lozenges 1 LOZ PO PRN (08:49)
[2019-05-27] MEDS ORDERED: Acetaminophen 325 MG TAB PO PRN (08:50)
[2019-05-27] MEDS: Vancomycin HCl 1 GM in Premix Bag 1 BAG IVPB SCH (09:02)
[2019-05-27] MEDS: levETIRAcetam 500 mg/5 ml Oral Solution PO SCH ×2 (09:03→21:27)
[2019-05-27] MEDS: MEROPENEM 1 GM/50 ML 1 GM in Premix Bag 1 BAG IVPB SCH ×2 (09:03→21:27)
[2019-05-27] MEDS: Pantoprazole 40 MG VIAL IVP SCH (09:03)
[2019-05-27] MEDS: Potassium Chloride 10 MEQ TAB PO SCH (09:04)
[2019-05-27 09:54] LABS: Lactic Acid 1.8 mmol/L (0.5-2.2)
--- NOTE | 2019-05-27 11:33 | PDOC.HOSPP ---
- Subjective Encounter Date: 05/27/19 Encounter Time: 11:00 Subjective: Patient seen and examined. No new complaints. No overnight events - Objective Vital Signs & Weight: Vital Signs (12 hours) Temp Pulse Ox 05/27/19 08:20 97.9 F 05/27/19 08:00 100 05/27/19 03:26 98.9 F 05/26/19 23:34 99.2 F Weight Weight 144 lb Most Recent Monitor Data Heart Rate from ECG 110 NIBP 106/59 NIBP BP-Mean 74 Respiration from ECG 23 SpO2 100 I&O: 05/26/19 05/27/19 05/28/19 06:59 06:59 06:59 Intake Total 522 5021 Output Total 1175 1175 Balance -293 1766 Result Diagrams: 05/27/19 03:28 05/27/19 03:28 Radiology Reviewed by me: Yes EKG Reviewed by me: Yes Hospitalist ROS - Review of Systems ROS unobtainable: due to mental status - Medication Medications: Active Medications Generic Name Dose Route Start Last Admin Trade Name Freq PRN Reason Stop Dose Admin Aspirin 81 mg 05/26/19 21:00 05/26/19 21:34 Aspirin Chewable PO 81 mg HS DONALD Administration Meropenem 1 gm/ Device 50 mls @ 200 mls/hr 05/26/19 09:00 05/27/19 09:03 IVPB 50 mls Q12HR DONALD Administration Vancomycin HCl 1 gm/ Device 200 mls @ 200 mls/hr 05/26/19 08:00 05/27/19 09: 02 IVPB 200 mls 0800 DONALD Administration Dextrose/Sodium Chloride 1,000 mls @ 100 mls/hr 05/26/19 17:51 05/27/19 05:35 D5 0.9% Ns IV 1,000 mls .Q10H DONALD Administration Levetiracetam 500 mg 05/25/19 21:00 05/27/19 09:03 Keppra Oral Solution PO 500 mg BID DONALD Administration Levothyroxine Sodium 150 mcg 05/26/19 06:00 05/27/19 05:34 Synthroid PO 150 mcg 0600 DONALD Administration Loratadine 10 mg 05/25/19 21:00 05/26/19 21:34 Claritin PO 10 mg HS DONALD Administration Ondansetron HCl 4 mg 05/25/19 08:27 05/26/19 03:18 Zofran IVP 4 mg Q6H PRN Administration Nausea/Vomiting Pantoprazole Sodium 40 mg 05/26/19 09:00 05/27/19 09:03 Protonix IVP 40 mg DAILY DONALD Administration Potassium Chloride 10 meq 05/25/19 09:00 05/27/19 09:04 Klor-Con 10 PO Not Given DAILY DONALD Sodium Chloride 10 ml 05/25/19 09:00 05/27/19 09:04 Flush - Normal Saline IVF 10 ml Q12HR DONALD Administration Sodium Chloride 10 ml 05/25/19 08:29 05/26/19 04:10 Flush - Normal Saline IVF 10 ml PRN PRN Administration Saline Flush - Exam General Appearance: NAD, awake alert Eye: PERRL, anicteric sclera ENT: normocephalic atraumatic, no oropharyngeal lesions Neck: supple, symmetric, no JVD Heart: RRR, no murmur, no gallops Respiratory: CTAB, no wheezes, no rales Gastrointestinal: soft, non-tender, non-distended Extremities: no cyanosis, no clubbing Skin: normal turgor, no lesions Neurological: no focal deficits Musculoskeletal: normal tone, normal strength Psychiatric: normal affect, normal behavior Hosp A/P (1) Pneumonia Code(s): J18.9 - PNEUMONIA, UNSPECIFIED ORGANISM Status: Chronic (2) Macrocytic anemia Code(s): D53.9 - NUTRITIONAL ANEMIA, UNSPECIFIED Status: Acute (3) Lactic acidosis Code(s): E87.2 - ACIDOSIS Status: Acute (4) Abnormal blood electrolyte level Code(s): E87.8 - OTH DISORDERS OF ELECTROLYTE AND FLUID BALANCE, NEC Status: Acute (5) Dementia Code(s): F03.90 - UNSPECIFIED DEMENTIA WITHOUT BEHAVIORAL DISTURBANCE Status: Chronic Qualifiers: Dementia type: Alzheimer's disease (6) Physical deconditioning Code(s): R53.81 - OTHER MALAISE Status: Chronic (7) Cholelithiases Code(s): K80.20 - CALCULUS OF GALLBLADDER W/O CHOLECYSTITIS W/O OBSTRUCTION Status: Chronic Qualifiers: Cholelithiasis location: gallbladder Cholecystitis presence: without cholecystitis Biliary obstruction: without biliary obstruction Qualified Code(s): K80.20 - Calculus of gallbladder without cholecystitis without obstruction - Plan old records reviewed/req, continue antibiotics 05/27/19 transfer to medical floor continue empiric antibiotics medication reviewed and continue to provide symptomatic care and supportive care
--- NOTE | 2019-05-27 12:16 | PDOC.PALCO ---
Palliative Care Consult - Consult Details Requesting Physician: Dr Willis Reason for Consult: goals of care, complex decision-making Family Members Present: Paitent ( 60+years) - Pertinent HPI Mr Koenig is a poor historian, his relayed majority of history. States that he fell in the fall and suffered a fracture, but had been living independently at home prior to that event. (Mr Koenig and his live in a Barndominium on one of their sons properties) He went to the [facility] for rehab and suffered a seizure and subsequent admission to the hospital. He had a PEG placed secondary to dysphagia. He has been reportable increasing his intake at the nursing facility and on Monday complained of chest discomfort and was transferred to the emergency room at [facility] for evaluation. No chest pain identified, but appeared to be related to epigastric discomfort. Admitted to telemetry but was transferred to IMCU for episode of hypotension/tachycardia. During assessment patient was unable to retain information given, not understanding of being NPO, referred all questions to his . In the conversation it appears Mrs Koenig has limited capacity in understanding the dysphagia. - Social History Smoking Status: Never smoker Smoking: no tobacco exposure Alcohol Use: other (Previous alcohol, none currently) Drug Use History: none Living Situation: (Currently at the [facility], previously in a private home on sons property) - Medications MAR Reviewed: Yes - Allergies Allergies/Adverse Reactions: Allergies Allergy/AdvReac Type Severity Reaction Status Date / Time azithromycin Allergy Verified 05/25/19 00:49 cephalexin [From Keflex] Allergy Verified 05/25/19 00:49 doxycycline [From Adoxa] Allergy Verified 05/25/19 00:49 levofloxacin [From Levaquin] Allergy Verified 05/25/19 00:49 Penicillins Allergy Verified 05/25/19 00:49 Sulfa (Sulfonamide Allergy Verified 05/25/19 00:49 Antibiotics) - Subjective Awake, alert. Confused, unable to retain information given. Repeatedly requested to have tea his was drinking even though he was repeatedly given explanation as to being NPO and why. ROS was done, patient only expressed being "hungry" but unreliable historian in ROS due to confusion. - ROS Non Response: due to mental status - Objective Vital Signs: Vital Signs - Most Recent Temp Pulse Resp BP Pulse Ox 99.6 F 126 H 32 H 85/50 L 100 05/27/19 11:38 05/26/19 07:09 05/26/19 07:09 05/26/19 07:09 05/27/19 08:00 - Physical Exam Constitutional: confusion, emaciated, ill appearing HEENT: EOMI, moist MMs, PERRLA Deviation from normal: erythema to sclera Respiratory: clear to auscultation bilateral, diminished lung sound Cardiovascular: RRR Gastrointestinal: no distention, positive bowel sounds Deviation from normal: PEG Genitourinary: hirsch catheter Musculoskeletal: no cyanosis, no clubbing, no edema, muscle wasting Neurology: no focal deficits Skin: cap refill <2 seconds, normal turgor Deviation from normal: frustrated, confused. - Problem List (1) Palliative care encounter Code(s): Z51.5 - ENCOUNTER FOR PALLIATIVE CARE Current Visit: Yes Status: Acute (2) Epigastric pain Code(s): R10.13 - EPIGASTRIC PAIN Current Visit: Yes Status: Acute (3) Dementia Code(s): F03.90 - UNSPECIFIED DEMENTIA WITHOUT BEHAVIORAL DISTURBANCE Current Visit: Yes Status: Chronic Qualifiers: Dementia type: Alzheimer's disease (4) Physical deconditioning Code(s): R53.81 - OTHER MALAISE Current Visit: Yes Status: Chronic (5) Dysphagia Code(s): R13.10 - DYSPHAGIA, UNSPECIFIED Current Visit: No Status: Acute - Plan/Recommendations Plan: General life review, patient and both retired from [employer]. over 60+ years and have traveled all over [place], especially enjoying [place]. Discussed current complication with dysphagia. Confusion observed with patient as well as possible lack of capacity to understand with patient . They are having difficulty understanding NPO and diet restrictions. Will attempt to contact patient vel Monroe for further conversation to identify goal of care. states that currently they wish to continue with full resuscitative measures and aggressive care for Mr Koenig. Speech Therapy to re evaluate and make recommendations. Patient ultimate goal is to return "Home". Mary Sutton RNacetylene torch solderer to also follow, please see additional notes for Palliative Care in note section of chart. Vel Monroe [phone] [[id number]] minutes spent on this encounter with >50% of the time in counseling and coordination of care. Thank you for this very appropriate consult.
[2019-05-27 13:27] VITALS: BMI 21.2
[2019-05-27] MEDS: Aspirin Chewable 81 MG TAB PO SCH (21:27)
[2019-05-27] MEDS: Loratadine 10 MG TAB PO SCH (21:27)
[2019-05-28] MEDS ORDERED: Lorazepam 2 MG/ML VIAL SLOW IVP SCH (01:15)
[2019-05-28] MEDS: Dextrose 5 % And 0.9 % NaCl 1,000 ML IV SCH ×2 (06:13→20:26)
[2019-05-28] MEDS: Levothyroxine 150 MCG TAB PO SCH (06:13)
[2019-05-28 07:19] LABS: Vancomycin, Trough 10.6 ug/mL
[2019-05-28] MEDS: Vancomycin HCl 1 GM in Premix Bag 1 BAG IVPB SCH (08:22)
--- NOTE | 2019-05-28 08:26 | PRG ---
DATE OF SERVICE: 05/28/2019 SUBJECTIVE: The patient is doing reasonably well, has no acute complaints, but has a very poor memory. OBJECTIVE: VITAL SIGNS: On exam, temperature is 98.4, pulse 115, respirations 20, O2 saturation 93%, and blood pressure 139/74. HEENT: Unremarkable. NECK: No JVD. LUNGS: Coarse breath sounds. CARDIAC: S1 and S2. Regular. ABDOMEN: Soft. EXTREMITIES: No edema. LABORATORY DATA: No new labs were done today. ASSESSMENT: 1. Severe dementia with debilitation. 2. Sepsis. 3. Healthcare-acquired pneumonia. 4. Possible colitis. PLAN: 1. The patient is continuing antibiotics. 2. The most concerning factor is yeast grew through from one of his culture sets. Based on the possibility of fungemia, it might be a better choice to put him on Mycamine as opposed to fluconazole, but I will leave that up to the primary team. Prognosis is very poor. Job ID: [id number]
[2019-05-28] MEDS: levETIRAcetam 500 mg/5 ml Oral Solution PO SCH ×2 (08:54→20:26)
[2019-05-28] MEDS: Fluconazole In NaCl,Iso-Osm 200 MG in Premix Bag 1 BAG IVPB SCH (08:55)
[2019-05-28] MEDS: Pantoprazole 40 MG VIAL IVP SCH (08:55)
[2019-05-28] MEDS: MEROPENEM 1 GM/50 ML 1 GM in Premix Bag 1 BAG IVPB SCH ×2 (08:55→20:26)
[2019-05-28] MEDS: Vancomycin HCl 1.25 GM in Sodium Chloride 0.9% 250 ML 250 ML IVPB SCH (08:55)
[2019-05-28] MEDS: Potassium Chloride 10 MEQ TAB PO SCH (08:55)
--- NOTE | 2019-05-28 13:36 | PDOC.HOSPP ---
- Subjective Encounter Date: 05/28/19 Encounter Time: 08:00 Subjective: Patient seen and examined. No overnight events - Objective Vital Signs & Weight: Vital Signs (12 hours) Temp Pulse Resp BP BP Pulse Ox 05/28/19 07:36 98.4 F 115 H 20 139/74 93 L 05/28/19 04:48 98.1 F 116 H 23 H 133/69 92 L Weight Admit Weight 133 lb 8 oz Weight 143 lb 11.2 oz Most Recent Monitor Data Heart Rate from ECG 110 NIBP 106/55 NIBP BP-Mean 72 Respiration from ECG 23 SpO2 100 I&O: 05/27/19 05/28/19 05/29/19 06:59 06:59 06:59 Intake Total 5021 2450 Output Total 1175 1000 Balance 3846 1450 Result Diagrams: 05/27/19 03:28 05/27/19 03:28 Hospitalist ROS - Review of Systems ROS unobtainable: due to mental status - Medication Medications: Active Medications Generic Name Dose Route Start Last Admin Trade Name Freq PRN Reason Stop Dose Admin Aspirin 81 mg 05/26/19 21:00 05/27/19 21:27 Aspirin Chewable PO 81 mg HS DONALD Administration Meropenem 1 gm/ Device 50 mls @ 200 mls/hr 05/26/19 09:00 05/28/19 08:55 IVPB 50 mls Q12HR DONALD Administration Dextrose/Sodium Chloride 1,000 mls @ 100 mls/hr 05/26/19 17:51 05/28/19 06:13 D5 0.9% Ns IV 1,000 mls .Q10H DONALD Administration Vancomycin HCl 1.25 gm/ Sodium 250 mls @ 250 mls/hr 05/28/19 08:00 05/28/19 08:55 Chloride IVPB 250 mls 0800 DONALD Administration Fluconazole/Sodium Chloride 100 mls @ 100 mls/hr 05/28/19 09:00 05/28/19 08: 55 200 mg/ Device IVPB 100 mls DAILY DONALD Administration Levetiracetam 500 mg 05/25/19 21:00 05/28/19 08:54 Keppra Oral Solution PO 500 mg BID DONALD Administration Levothyroxine Sodium 150 mcg 05/26/19 06:00 05/28/19 06:13 Synthroid PO 150 mcg 0600 DONALD Administration Loratadine 10 mg 05/25/19 21:00 05/27/19 21:27 Claritin PO 10 mg HS DONALD Administration Ondansetron HCl 4 mg 05/25/19 08:27 05/26/19 03:18 Zofran IVP 4 mg Q6H PRN Administration Nausea/Vomiting Pantoprazole Sodium 40 mg 05/26/19 09:00 05/28/19 08:55 Protonix IVP 40 mg DAILY DONALD Administration Potassium Chloride 10 meq 05/25/19 09:00 05/28/19 08:55 Klor-Con 10 PO 10 meq DAILY DONALD Administration Sodium Chloride 10 ml 05/25/19 09:00 05/28/19 09:06 Flush - Normal Saline IVF Not Given Q12HR DONALD Sodium Chloride 10 ml 05/25/19 08:29 05/26/19 04:10 Flush - Normal Saline IVF 10 ml PRN PRN Administration Saline Flush - Exam General Appearance: ill appearing Eye: PERRL, anicteric sclera ENT: normocephalic atraumatic, no oropharyngeal lesions Neck: supple, symmetric, no JVD Heart: RRR, no murmur, no gallops, no rubs Respiratory: CTAB, no wheezes, no rales, no ronchi Gastrointestinal: soft, non-tender, non-distended Extremities: no cyanosis, no clubbing Skin: normal turgor, no lesions Musculoskeletal: normal tone Hosp A/P (1) Pneumonia Code(s): J18.9 - PNEUMONIA, UNSPECIFIED ORGANISM Status: Chronic (2) Macrocytic anemia Code(s): D53.9 - NUTRITIONAL ANEMIA, UNSPECIFIED Status: Acute (3) Lactic acidosis Code(s): E87.2 - ACIDOSIS Status: Acute (4) Abnormal blood electrolyte level Code(s): E87.8 - OTH DISORDERS OF ELECTROLYTE AND FLUID BALANCE, NEC Status: Acute (5) Dementia Code(s): F03.90 - UNSPECIFIED DEMENTIA WITHOUT BEHAVIORAL DISTURBANCE Status: Chronic Qualifiers: Dementia type: Alzheimer's disease (6) Physical deconditioning Code(s): R53.81 - OTHER MALAISE Status: Chronic (7) Cholelithiases Code(s): K80.20 - CALCULUS OF GALLBLADDER W/O CHOLECYSTITIS W/O OBSTRUCTION Status: Chronic Qualifiers: Cholelithiasis location: gallbladder Cholecystitis presence: without cholecystitis Biliary obstruction: without biliary obstruction Qualified Code(s): K80.20 - Calculus of gallbladder without cholecystitis without obstruction (8) Fungemia Code(s): B49 - UNSPECIFIED MYCOSIS Status: Acute - Plan old records reviewed/req, continue antibiotics 05/27/19 transfer to medical floor continue empiric antibiotics medication reviewed and continue to provide symptomatic care and supportive care 05/28/19 start diflucan consult ID continue antibiotics prognosis is poor
--- NOTE | 2019-05-28 15:32 | RAD ---
Modified Barium Swallow CLINICAL HISTORY: Dysphagia unspecified R13.10 and feeding difficulties R 63.3 FINDINGS: The examination is performed under real-time fluoroscopy under guidance of the speech ther apy department. 1 minute fluoroscopic time. Total exposure 0.482 wilson per centimeter square. There were episodes of tracheal aspiration penetration with barium impregnated honey and barium impr egnated pudding. The examination was then discontinued following the aspiration episodes. IMPRESSION: Tracheal aspiration penetration with barium impregnated honey and barium impregnated pudd ing. Reference speech pathology report for further details.
[2019-05-28] MEDS: Loratadine 10 MG TAB PO SCH (20:26)
[2019-05-28] MEDS: Aspirin Chewable 81 MG TAB PO SCH (20:26)
--- NOTE | 2019-05-28 21:07 | EKG ---
Test Reason : STAT Blood Pressure : / mmHG Vent. Rate : 133 BPM Atrial Rate : 122 BPM P-R Int : 000 ms QRS Dur : 080 ms QT Int : 368 ms P-R-T Axes : 000 -26 105 degrees QTc Int : 547 ms Supraventricular tachycardia with frequent , and consecutive Premature ventricular complexes Abnormal ECG When compared with ECG of 29-APR-2019 00:13, Sinus rhythm has replaced Junctional rhythm Vent. rate has increased BY [address] now depressed in Lateral leads Nonspecific T wave abnormality now evident in Inferior leads T wave inversion now evident in Lateral leads Confirmed by Roby PACHECO ([id number]) on 05/28/2019 9:06:58 PM Referred By: JESSE Confirmed By:Roby PACHECO
[2019-05-29] MEDS: Levothyroxine 150 MCG TAB PO SCH (05:12)
[2019-05-29] MEDS: Dextrose 5 % And 0.9 % NaCl 1,000 ML IV SCH ×2 (05:12→15:16)
[2019-05-29] MEDS: Fluconazole In NaCl,Iso-Osm 200 MG in Premix Bag 1 BAG IVPB SCH (08:42)
[2019-05-29] MEDS: Potassium Chloride 10 MEQ TAB PO SCH (08:46)
[2019-05-29] MEDS: Pantoprazole 40 MG VIAL IVP SCH (08:46)
[2019-05-29] MEDS: levETIRAcetam 500 mg/5 ml Oral Solution PO SCH ×2 (09:40→20:59)
[2019-05-29] MEDS: MEROPENEM 1 GM/50 ML 1 GM in Premix Bag 1 BAG IVPB SCH ×2 (09:40→21:00)
[2019-05-29] MEDS: Vancomycin HCl 1.25 GM in Sodium Chloride 0.9% 250 ML 250 ML IVPB SCH (10:01)
--- NOTE | 2019-05-29 10:38 | PRG ---
DATE OF SERVICE: 05/29/2019 SUBJECTIVE: The patient is seen and examined at the bedside. He has a lot of congestion and he is trying to cough up some phlegm and his appetite is fair. OBJECTIVE: VITAL SIGNS: Blood pressure is 155/77, pulse is 100, temperature is 97.7, respirations 20, and O2 saturation is 100% on 3 L by nasal cannula. HEENT: His head is atraumatic and normocephalic. Sclerae are nonicteric. Oral mucosa is dry. NECK: Supple. LUNGS: Left mid and lower parts of the lung with a lot of congestion, crackles, and rales with some wheezes too. ABDOMEN: Soft and nontender. Bowel sounds are present. HEART: S1 and S2 normal. No S3. No S4. EXTREMITIES: No clubbing, cyanosis, or edema. NEUROLOGIC: He follows my commands. He moves his all 4 extremities. There are no any motor deficits. LABORATORY DATA: None today. IMPRESSION: 1. Pneumonia. 2. Macrocytic anemia. 3. Dementia. 4. Cholelithiasis. 5. Fungemia. PLAN: Start DuoNebs. Continue antibiotics. Continue antifungal. ID consult. Chest x-ray. Start PT and OT. Job ID: [id number]
--- NOTE | 2019-05-29 11:14 | RAD ---
XR Chest 1 View HISTORY: Pneumonia COMPARISON: 05/26/2019 FINDINGS: The heart size is borderline. The aorta is tortuous. There is been interval worsening of pa tchy airspace disease in the right lower lung and development of new airspace opacities in the left lower lung. Small bilateral pleural effusions are present. No pneumothoraces are noted. IMPRESSION: Interval worsening of pneumonia since 05-26-2019
--- NOTE | 2019-05-29 12:02 | PRG ---
DATE OF SERVICE: 05/29/2019 SUBJECTIVE: The patient continues to do poorly, although he is more awake this morning than he has been. OBJECTIVE: VITAL SIGNS: His temperature is 97.7, pulse 100, respirations 18, O2 saturation 98% on 2 L, and blood pressure 155/77. HEENT: Unremarkable. NECK: No adenopathy or JVD. LUNGS: Coarse breath sounds. CARDIAC: S1 and S2 regular. ABDOMEN: Soft. EXTREMITIES: No edema. ASSESSMENT: 1. Fungemia. 2. Chronic respiratory failure secondary to aspiration and underlying chronic obstructive pulmonary disease. 3. History of a hemothorax. 4. Dementia. PLAN: I was able to catch the today and speak with her regarding his care. I told her that I was afraid that he was becoming to a point where he was deteriorating despite continued aggressive medical care and I told her I advised against putting him on machines in the event of cardiopulmonary arrest. I explained her what DNR was and she said that she did want DNR placed on the chart. She said her goal of care was to get him home. I will have her meet with hospice team today. I have put a DNAR order on the chart. I have spoken with Case Management and the nursing team. In the meantime, he will continue antibiotic therapy. Prognosis is poor. Job ID: [id number]
[2019-05-29] MEDS: Aspirin Chewable 81 MG TAB PO SCH (20:59)
[2019-05-29] MEDS: Loratadine 10 MG TAB PO SCH (21:00)
[2019-05-30] MEDS: Dextrose 5 % And 0.9 % NaCl 1,000 ML IV SCH ×2 (01:15→12:21)
[2019-05-30] MEDS: Levothyroxine 150 MCG TAB PO SCH (04:53)
[2019-05-30 07:23] LABS: Vancomycin, Trough 12.3 ug/mL
[2019-05-30 07:53] VITALS: BP 153/89; TEMP 98.4
[2019-05-30] MEDS: Pantoprazole 40 MG VIAL IVP SCH (08:58)
[2019-05-30] MEDS: Fluconazole In NaCl,Iso-Osm 200 MG in Premix Bag 1 BAG IVPB SCH (08:59)
[2019-05-30] MEDS: MEROPENEM 1 GM/50 ML 1 GM in Premix Bag 1 BAG IVPB SCH (08:59)
--- NOTE | 2019-05-30 09:00 | PRG ---
DATE OF SERVICE: 05/30/2019 SUBJECTIVE: The patient complains that he wants to leave the hospital and go home. OBJECTIVE: VITAL SIGNS: Temperature 98.4, pulse 106, respirations 18, O2 saturation 100% on 2 L, and blood pressure 150/89. HEENT: No abnormalities. NECK: No JVD. LUNGS: Coarse breath sounds. CARDIAC: S1 and S2, regular. ABDOMEN: Soft. EXTREMITIES: No edema. ASSESSMENT: 1. Dementia. 2. Fungemia. 3. Chronic respiratory failure secondary to aspiration. 4. History of hemothorax. PLAN: He is continuing antifungal therapy. He is now DNAR after my conversation with his yesterday. I think the focus needs to be on transitioning him to hospice type environment as quickly as possible. Job ID: [id number]
[2019-05-30] MEDS: Potassium Chloride 10 MEQ TAB PO SCH (09:01)
[2019-05-30] MEDS: levETIRAcetam 500 mg/5 ml Oral Solution PO SCH (09:03)
[2019-05-30] MEDS: Vancomycin HCl 1.25 GM in Sodium Chloride 0.9% 250 ML 250 ML IVPB SCH (10:19)
[2019-05-30] MEDS ORDERED: Vancomycin 1.5 GRAM/300 ML BAG 1.5 GM in Premix Bag 1 BAG IVPB SCH (11:00)
--- NOTE | 2019-05-31 01:52 | DIS ---
DATE OF ADMISSION: 05/26/2019 DATE OF DISCHARGE: 05/30/2019 DISCHARGE DIAGNOSES: 1. Healthcare-acquired bacterial pneumonia, suspected gram negative organisms. 2. Fungemia with Belinda. 3. Severe sepsis, resolved. 4. Urinary retention with Steinberg catheter placement. 5. Cholecystitis, likely chronic. 6. Recurrent aspiration with dysphagia, status post PEG tube placement. 7. Chronic atrial fibrillation. 8. Chronic diastolic heart failure. 9. Severe deconditioning. 10. Alzheimer dementia. CONSULTATIONS: Dr. Bobo and Dr. Baez with Pulmonology Service. Dr. Brice Ambrosio with GI Service. PERTINENT LABORATORY AND X-RAY FINDINGS: Sodium ranged between 131 to 135, creatinine ranged between 1.01 to 1.26, estimated GFR ranged between 54 to 70, lactic acid level ranged between 1.8 to 5.8. Total bilirubin ranged between 1.3 to 2.8. BNP 81. Cortisol level 38.8. CBC showed a hemoglobin ranged between 11.3 to 12.8. CBC showed a white blood cell count ranged between 1.4 to 6.7. Blood culture x1 dated 05/26/2019, positive for Belinda albicans. Blood culture dated 05/26/2019, showed no growth at 48 hours. C difficile antigen toxin dated 05/28/2019, negative. Portable chest x-ray dated 05/24/2019, showed bilateral pleural effusions, right greater than left. Nodular opacity in the right lung base. Chronic changes bilaterally. CT of the chest with aortic dissection protocol showed no evidence of stenosis, occlusion, or aneurysm. Small bilateral effusions with bibasilar atelectasis. Nodular opacity in the right middle lobe seen on prior exam. Cardiac nuclear stress test dated 05/25/2019, showed unremarkable exam with ejection fraction of 59%. CT of the abdomen and pelvis dated 05/26/2019, showed bibasilar consolidation concerning for pneumonia or aspiration. Right inguinal hernia, chronic. Modified barium speech exam dated 05/28/2019, showed tracheal penetration consistent with aspiration with barium impregnated honey and barium impregnated pudding. HOSPITAL COURSE: The patient was initially admitted after presenting with abdominal pain. The patient underwent extensive evaluation including CT imaging of the abdomen and pelvis as well as CT of the chest to rule out dissection. The patient was initially diagnosed with severe sepsis meeting criteria and placed on broad-spectrum IV antibiotic therapy. The patient underwent Cardiolite stress testing showing no evidence of ischemia, but continued to receive IV antibiotics for suspected aspiration and healthcare-associated pneumonia. Blood cultures 1/2 positive for Belinda species at which point, Diflucan was initiated and continued through the remainder of the hospital course. The patient was evaluated by Speech Therapy due to chronic dysphagia and PEG tube placement showing persistent aspiration of oral contents. Due to the patient's multiple comorbid status, deconditioning, and limited mobility, the patient was evaluated by the Palliative Care Service. After discussions with the patient and family, the patient is ready to transition to hospice care at home. I have examined the patient at the time of discharge and discussed followup instructions. Family agreeable to return home with hospice care on 05/30/2019. DISCHARGE MEDICATIONS: 1. Diflucan 200 mg p.o. daily x10 days. 2. Potassium chloride 10 mEq per tube daily. 3. Loratadine 10 mg per tube at bedtime. 4. Levothyroxine 150 mcg per tube daily. 5. Keppra 500 mg per tube b.i.d. 6. Enteric-coated aspirin 81 mg per tube at bedtime. 7. Omeprazole 20 mg per tube daily. FOLLOWUP: The patient will transition to hospice care with [facility] after discharge. CONDITION ON DISCHARGE: Guarded. ACTIVITY: Ad-andre. DIET: PEG tube feeds with oral ice chips as tolerated. CODE STATUS: Do not attempt resuscitation. DISPOSITION: Discharged home with [facility] on 05/30/2019. TIME SPENT: Total time preparing and coordinating discharge is 35 minutes. Job ID: [id number]
== END 2019-05-30 17:24 | disposition hospice, home (50) | DRG 871 ==
LOC: ERS 20:16 → 2SW 22:00 → OBSVTOIN 05-26 07:05 → CCU 05-26 08:13 → IMCU/EMU 05-26 20:56 → T4-A 05-27 14:40
PROVIDERS: ADMIT Internal Medicine; ATTEND Internal Medicine
PROC: 0T9B70Z Drainage of Bladder with Drainage Device, Via Natural or Artificial Opening (ICD-10-PCS; principal; 2019-05-27)
DX: A41.9 Sepsis, unspecified organism (principal); J15.6 Pneumonia due to other Gram-negative bacteria; J96.01 Acute respiratory failure with hypoxia; Z66 Do not resuscitate; Z51.5 Encounter for palliative care; B49 Unspecified mycosis; I50.32 Chronic diastolic (congestive) heart failure; I48.20 Chronic atrial fibrillation, unspecified; I47.1 Supraventricular tachycardia; E87.2 Acidosis; K80.10 Calculus of gallbladder with chronic cholecystitis without obstruction; R65.20 Severe sepsis without septic shock; R33.9 Retention of urine, unspecified; G30.9 Alzheimer's disease, unspecified; F02.80 Dementia in other diseases classified elsewhere, unspecified severity, without behavioral disturbance, psychotic disturbance, mood disturbance, and anxiety; I25.10 Atherosclerotic heart disease of native coronary artery without angina pectoris; G40.909 Epilepsy, unspecified, not intractable, without status epilepticus; Y95 Nosocomial condition; I11.0 Hypertensive heart disease with heart failure; E03.9 Hypothyroidism, unspecified; Z88.1 Allergy status to other antibiotic agents; Z88.0 Allergy status to penicillin; Z88.2 Allergy status to sulfonamides; Z93.1 Gastrostomy status; Z79.899 Other long term (current) drug therapy; Z79.82 Long term (current) use of aspirin; Z79.890 Hormone replacement therapy
CPT/HCPCS: 36415; 71045; 71275; 72191; 74175; 74177; 74230; 76705; 78452; 80048; 80053; 80202; 81001; 82533; 82550; 82553; 83605; 83630; 83690; 83735; 83880; 84100; 84484; 85025; 87040; 87324; 87449; 93005; 93010; 93017; 94640; 96374; A9500; C9113; J1450; J2060; J2185; J2270; J2405; J2765; J2785; J3370; J3475; J7050; J7620; Q9967